=== PATIENT | female | born 1935 | race Caucasian/White ===

== ENCOUNTER → 2016-06-02 | Outpatient (CLI) | payer OTHER ==
[~2016-06-02] MED LIST: ACET325T96 PO; ADVIN25050 INH; ATOR10TA88 PO; BISA10SU7 PR; CALC-416 PO; CMD/25 PO; ESCI1TAB18 PO; FSM70 PO; HYDR1TAB2 PO; LEVO50TA6 PO; LPR25 PO; MOML PO; MULT-190 PO; OMEP20CA59 PO; SENN-12 PO; SIMV20TA2 PO; SODIENE PR; WARF2TAB PO
[2016-06-02 09:25] LABS: PROTHROMBIN TIME (PATIENT) 42.3 SECONDS (9.0-12.0)
[2016-06-02 09:42] LABS: INR 3.7 (0.9-1.1)
== END ==
LOC: C.LABUPUNI 08:50
PROVIDERS: ATTEND Family Medicine
DX: I48.2 Chronic atrial fibrillation (principal)

== ENCOUNTER → 2016-06-05 | Outpatient (CLI) | payer OTHER ==
[~2016-06-05] MED LIST changes: +ATOR10TA82 PO; -ATOR10TA88 PO
[2016-06-05 10:49] LABS: MEAN CORPUSCULAR HGB CONC 32.3 g/dl (32-36); MEAN PLATELET VOLUME 10.4 fL (7.4-10.4); PLATELET COUNT 249 K/uL (130-400)
[2016-06-05 10:57] LABS: ALT/SGPT 12 U/L (12-78); BLOOD UREA NITROGEN 17 mg/dl (7-18); BUN/CREATININE RATIO 17.1 (10-20); CALCIUM 8.3 mg/dl (8.5-10.1); CARBON DIOXIDE 26 mmol/L (21-32); CHLORIDE 108 mmol/L (98-107); CREATININE 0.98 mg/dl (0.60-1.20); GLUCOSE 74 mg/dl (70-99); POTASSIUM 3.9 mmol/L (3.5-5.1); SODIUM 143 mmol/L (136-145)
[2016-06-05 11:08] LABS: ALB/GLOB RATIO 0.7 (0.9-2); ALKALINE PHOSPHATASE 59 U/L (45-117); AST/SGOT 20 U/L (15-37)
[2016-06-05 11:19] LABS: BASO % 0.6 %; BASO ABS # 0.04 K/uL (0-0.2); COMPLETE YES; EOS % 5.2 %; HEMATOCRIT 31.3 % (37-47); IG% 0.2 %; LYMPH % 41.2 %; LYMPH ABS # 2.63 K/uL (1.2-3.4); MEAN CELL VOLUME 91.5 fL (80-100); MEAN CORPUSCULAR HEMOGLOBIN 29.5 pg (25-34); MONO % 11.3 %; NEUT % 41.5 %; RED BLOOD COUNT 3.42 M/uL (4.2-5.4); WHITE BLOOD COUNT 6.39 K/uL (4.8-10.8)
--- NOTE | 2016-06-09 10:04 | CODING QUERY MEDICAL NECESSITY ---
SUPPORTING DIAGNOSIS NEEDED A supporting diagnosis is required for the test/procedure performed on this patient in order for us to be reimbursed by the patient's insurance. Please provide a supporting diagnosis for the following test/procedure listed below next to the test name along with your signature. *If there is no additional diagnosis for this patient that would support the following test/procedure please document that below next to the test/procedure. Test(s)/Procedure(s) that require a supporting diagnosis: DOS 06/05 * Vitamin D DIAGNOSIS: Provider Signature: Date: Thank you Tanisha Timmons Health Information Management Once completed, please kindly fax back to [phone] For questions please call [phone]
== END ==
LOC: C.LABUPUNI 10:28
PROVIDERS: ATTEND Family Medicine
DX: M62.81 Muscle weakness (generalized) (principal); E03.9 Hypothyroidism, unspecified

== ENCOUNTER → 2016-06-06 | Outpatient (CLI) | payer OTHER ==
[~2016-06-06] MED LIST changes: -ATOR10TA82 PO; +ATOR10TA88 PO
[2016-06-06 08:35] LABS: ALT/SGPT 13 U/L (12-78); BLOOD UREA NITROGEN 15 mg/dl (7-18); BUN/CREATININE RATIO 16.6 (10-20); CALCIUM 8.1 mg/dl (8.5-10.1); CARBON DIOXIDE 27 mmol/L (21-32); CHLORIDE 107 mmol/L (98-107); CHOLESTEROL 114 mg/dl (0-200); CREATININE 0.92 mg/dl (0.60-1.20); GLUCOSE 70 mg/dl (70-99); POTASSIUM 3.8 mmol/L (3.5-5.1); SODIUM 143 mmol/L (136-145); TRIGLYCERIDES 181 mg/dl (0-150); VERY LOW DENSITY LIPOPROT CALC 36 mg/dl
[2016-06-06 08:40] LABS: PROTHROMBIN TIME (PATIENT) 62.7 SECONDS (9.0-12.0)
[2016-06-06 08:43] LABS: ALKALINE PHOSPHATASE 53 U/L (45-117); AST/SGOT 21 U/L (15-37); CHOLESTEROL/HDL RATIO 3.5; HDL CHOLESTEROL 33 mg/dl; LDL CHOLESTEROL CALCULATED 45 mg/dl
[2016-06-06 08:46] LABS: INR 5.5 (0.9-1.1)
--- NOTE | 2016-07-08 12:15 | CODING QUERY MEDICAL NECESSITY ---
SUPPORTING DIAGNOSIS NEEDED A supporting diagnosis is required for the test/procedure performed on this patient in order for us to be reimbursed by the patient's insurance. Please provide a supporting diagnosis for the following test/procedure listed below next to the test name along with your signature. *If there is no additional diagnosis for this patient that would support the following test/procedure please document that below next to the test/procedure. Test(s)/Procedure(s) that require a supporting diagnosis: * VITAMIN D DIAGNOSIS: * VITAMIN B-12 DIAGNOSIS: * DOS: 06/06/16 Provider Signature: Date: Thank you Jessica Church Health Information Management Once completed, please kindly fax back to [phone] For questions please call [phone]
== END ==
LOC: C.LABUPUNI 08:07
PROVIDERS: ATTEND Family Medicine
DX: E03.9 Hypothyroidism, unspecified (principal); F33.9 Major depressive disorder, recurrent, unspecified; E78.5 Hyperlipidemia, unspecified; F10.97 Alcohol use, unspecified with alcohol-induced persisting dementia; D64.89 Other specified anemias; M17.9 Osteoarthritis of knee, unspecified; M16.9 Osteoarthritis of hip, unspecified

== ENCOUNTER → 2016-06-07 | Outpatient (CLI) | payer OTHER ==
[2016-06-07 15:56] LABS: INR 6.3 (0.9-1.1)
== END ==
LOC: C.LABUPUNI 12:02
PROVIDERS: ATTEND Family Medicine
DX: I48.2 Chronic atrial fibrillation (principal)

== ENCOUNTER → 2016-06-09 | Outpatient (CLI) | payer OTHER ==
[2016-06-09 09:48] LABS: INR 2.8 (0.9-1.1); PROTHROMBIN TIME (PATIENT) 31.4 SECONDS (9.0-12.0)
== END ==
LOC: C.LABUPUNI 09:17
PROVIDERS: ATTEND Family Medicine
DX: Z79.01 Long term (current) use of anticoagulants (principal); Z51.81 Encounter for therapeutic drug level monitoring

== ENCOUNTER → 2016-06-13 | Outpatient (CLI) | payer OTHER ==
[2016-06-13 08:53] LABS: INR 2.6 (0.9-1.1); PROTHROMBIN TIME (PATIENT) 29.1 SECONDS (9.0-12.0)
== END ==
LOC: C.LABUPUNI 08:06
PROVIDERS: ATTEND Family Medicine
DX: I48.91 Unspecified atrial fibrillation (principal)

== ENCOUNTER → 2016-06-16 | Outpatient (CLI) | payer OTHER ==
[2016-06-16 10:25] LABS: PROTHROMBIN TIME (PATIENT) 34.1 SECONDS (9.0-12.0)
--- NOTE | 2016-06-17 12:14 | CODING QUERY NO DIAGNOSIS ---
TREATMENT RENDERED WITHOUT A DIAGNOSIS 35 To promote full compliance with coding requirements relating to patient care, physician participation is requested in all cases of state appellate clerk uncertainty. Please assist us with providing a diagnosis/symptom for the test(s) below: A diagnosis/symptom was not documented on your Order. A valid diagnosis/symptom is required to bill all insurances. Please remember that we are unable to code a diagnosis of rule out, probable, possible, questionable, or suspected. DOS 06/16/16 Tests that require a diagnosis: * PT/INR DIAGNOSIS: * ON YOUR ORDER YOU HAVE DX CODE I48.10, THIS IS AN INVALID CODE, CAN YOU PLEASE ADD CORRECT DX CODE Provider Signature: Date: Thank you Corina Merlos Health Information Management Once completed, please kindly fax back to [phone] For questions please call [phone]
== END ==
LOC: C.LABUPUNI 09:34
PROVIDERS: ATTEND Family Medicine
DX: I48.2 Chronic atrial fibrillation (principal)

== ENCOUNTER → 2016-06-23 | Outpatient (CLI) | payer OTHER ==
[2016-06-23 09:22] LABS: PROTHROMBIN TIME (PATIENT) 40.6 SECONDS (9.0-12.0)
[2016-06-23 09:24] LABS: INR 3.6 (0.9-1.1)
== END | disposition home or self-care (01) ==
LOC: C.LABUPUNI 08:32
PROVIDERS: ATTEND Family Medicine
DX: I48.2 Chronic atrial fibrillation (principal)

== ENCOUNTER → 2016-06-26 | Outpatient (CLI) | payer OTHER ==
[2016-06-26 08:37] LABS: INR 3.6 (0.9-1.1); PROTHROMBIN TIME (PATIENT) 40.1 SECONDS (9.0-12.0)
== END ==
LOC: C.LABUPUNI 08:05
PROVIDERS: ATTEND Family Medicine
DX: I48.2 Chronic atrial fibrillation (principal)

== ENCOUNTER → 2016-06-27 | Outpatient (CLI) | payer OTHER ==
[2016-06-27 09:18] LABS: INR 2.8 (0.9-1.1); PROTHROMBIN TIME (PATIENT) 31.3 SECONDS (9.0-12.0)
== END ==
LOC: C.LABUPUNI 08:56
PROVIDERS: ATTEND Family Medicine
DX: I48.91 Unspecified atrial fibrillation (principal)

== ENCOUNTER → 2016-06-30 | Outpatient (CLI) | payer OTHER ==
[2016-06-30 08:45] LABS: INR 2.2 (0.9-1.1); PROTHROMBIN TIME (PATIENT) 24.5 SECONDS (9.0-12.0)
--- NOTE | 2016-07-01 12:28 | CODING QUERY NO DIAGNOSIS ---
: 1935 TREATMENT RENDERED WITHOUT A DIAGNOSIS To promote full compliance with coding requirements relating to patient care, physician participation is requested in all cases of corporation pilot uncertainty. Please assist us with providing a diagnosis/symptom for the test(s) below: A diagnosis/symptom was not documented on your Order. A valid diagnosis/symptom is required to bill all insurances. Please remember that we are unable to code a diagnosis of rule out, probable, possible, questionable, or suspected. Tests that require a diagnosis: * PROTHROMBIN TIME PRO DOS: 06/30/16 DIAGNOSIS: Provider Signature: Date: Thank you Jessica Rivas [employer] Information Management Once completed, please kindly fax back to [phone] For questions please call [phone]
== END | disposition home or self-care (01) ==
LOC: C.LABUPUNI 08:10
PROVIDERS: ATTEND Family Medicine
DX: I48.2 Chronic atrial fibrillation (principal)

== ENCOUNTER → 2016-07-07 | Outpatient (CLI) | payer OTHER ==
[2016-07-07 09:06] LABS: INR 1.4 (0.9-1.1); PROTHROMBIN TIME (PATIENT) 14.8 SECONDS (9.0-12.0)
== END ==
LOC: C.LABUPUNI 08:37
PROVIDERS: ATTEND Family Medicine
DX: I48.2 Chronic atrial fibrillation (principal)

== ENCOUNTER → 2016-07-14 | Outpatient (CLI) | payer OTHER ==
[2016-07-14 08:27] LABS: INR 1.3 (0.9-1.1); PROTHROMBIN TIME (PATIENT) 14.4 SECONDS (9.0-12.0)
== END ==
LOC: C.LABUPUNI 07:59
PROVIDERS: ATTEND Family Medicine
DX: I48.2 Chronic atrial fibrillation (principal)

== ENCOUNTER → 2016-07-21 | Outpatient (CLI) | payer OTHER ==
[2016-07-21 10:01] LABS: INR 3.2 (0.9-1.1); PROTHROMBIN TIME (PATIENT) 36.2 SECONDS (9.0-12.0)
== END ==
LOC: C.LABUPUNI 09:40
PROVIDERS: ATTEND Family Medicine
DX: I48.2 Chronic atrial fibrillation (principal)

== ENCOUNTER → 2016-07-28 | Outpatient (CLI) | payer OTHER ==
[2016-07-28 09:45] LABS: INR 1.4 (0.9-1.1); PROTHROMBIN TIME (PATIENT) 15.4 SECONDS (9.0-12.0)
== END ==
LOC: C.LABUPUNI 08:55
PROVIDERS: ATTEND Family Medicine
DX: I48.91 Unspecified atrial fibrillation (principal)

== ENCOUNTER → 2016-08-04 | Outpatient (CLI) | payer OTHER ==
[2016-08-04 10:38] LABS: INR 1.9 (0.9-1.1); PROTHROMBIN TIME (PATIENT) 21.3 SECONDS (9.0-12.0)
== END ==
LOC: C.LABUPUNI 10:07
PROVIDERS: ATTEND Family Medicine
DX: I48.2 Chronic atrial fibrillation (principal)

== ENCOUNTER → 2016-08-08 | Outpatient (CLI) | payer OTHER ==
[2016-08-08 10:02] LABS: INR 2.7 (0.9-1.1); PROTHROMBIN TIME (PATIENT) 30.6 SECONDS (9.0-12.0)
== END ==
LOC: C.LABUPUNI 09:23
PROVIDERS: ATTEND Family Medicine
DX: I48.2 Chronic atrial fibrillation (principal)

== ENCOUNTER → 2016-08-13 | Outpatient (CLI) | payer OTHER ==
[~2016-08-13] MED LIST changes: +ATOR10TA82 PO; -ATOR10TA88 PO
[2016-08-13 10:20] LABS: INR 2.1 (0.9-1.1); PROTHROMBIN TIME (PATIENT) 22.9 SECONDS (9.0-12.0)
--- NOTE | 2016-08-14 11:58 | CODING QUERY NO DIAGNOSIS ---
: 1935 TREATMENT RENDERED WITHOUT A DIAGNOSIS To promote full compliance with coding requirements relating to patient care, physician participation is requested in all cases of compounder helper uncertainty. Please assist us with providing a diagnosis/symptom for the test(s) below: A diagnosis/symptom was not documented on your Order. A valid diagnosis/symptom is required to bill all insurances. Please remember that we are unable to code a diagnosis of rule out, probable, possible, questionable, or suspected. Tests that require a diagnosis: DOS: 08/13/16 * Prothrombin Time Profile DIAGNOSIS: Provider Signature: Date: Thank you Shannan Lund Health Information Management Once completed, please kindly fax back to [phone] For questions please call [phone]
== END ==
LOC: C.LABUPUNI 09:48
PROVIDERS: ATTEND Family Medicine
DX: Z01.89 Encounter for other specified special examinations (principal)

== ENCOUNTER → 2016-08-20 | Outpatient (CLI) | payer OTHER ==
[~2016-08-20] MED LIST changes: -ATOR10TA82 PO; +ATOR10TA88 PO
[2016-08-20 09:31] LABS: INR 2.5 (0.9-1.1); PROTHROMBIN TIME (PATIENT) 27.9 SECONDS (9.0-12.0)
== END ==
LOC: C.LABUPUNI 09:05
PROVIDERS: ATTEND Family Medicine
DX: I48.91 Unspecified atrial fibrillation (principal)

== ENCOUNTER → 2016-08-29 | Outpatient (CLI) | payer OTHER ==
[~2016-08-29] MED LIST changes: +ATOR10TA82 PO; -ATOR10TA88 PO
[2016-08-29 09:41] LABS: MEAN CELL VOLUME 90.2 fL (80-100); MEAN CORPUSCULAR HEMOGLOBIN 28.9 pg (25-34); MEAN PLATELET VOLUME 10.3 fL (7.4-10.4); PLATELET COUNT 278 K/uL (130-400); RED BLOOD COUNT 3.88 M/uL (4.2-5.4); WHITE BLOOD COUNT 7.15 K/uL (4.8-10.8)
== END ==
LOC: C.LABUPUNI 09:12
PROVIDERS: ATTEND Family Medicine
DX: I48.2 Chronic atrial fibrillation (principal)

== ENCOUNTER → 2016-09-03 | Outpatient (CLI) | payer OTHER ==
[2016-09-03 09:45] LABS: INR 2.6 (0.9-1.1); PROTHROMBIN TIME (PATIENT) 28.7 SECONDS (9.0-12.0)
== END ==
LOC: C.LABUPUNI 09:25
PROVIDERS: ATTEND Family Medicine
DX: I48.91 Unspecified atrial fibrillation (principal)

== ENCOUNTER → 2016-10-08 | Outpatient (CLI) | payer OTHER ==
[2016-10-08 10:19] LABS: INR 2.6 (0.9-1.1); PROTHROMBIN TIME (PATIENT) 29.2 SECONDS (9.0-12.0)
== END ==
LOC: C.LABUPUNI 09:47
PROVIDERS: ATTEND Family Medicine
DX: I48.91 Unspecified atrial fibrillation (principal)

== ENCOUNTER → 2016-10-20 | Outpatient (CLI) | payer OTHER ==
[2016-10-20 11:08] LABS: INR 1.9 (0.9-1.1); PROTHROMBIN TIME (PATIENT) 20.5 SECONDS (9.0-12.0)
== END ==
LOC: C.LABUPUNI 09:43
PROVIDERS: ATTEND Family Medicine
DX: I48.91 Unspecified atrial fibrillation (principal)

== ENCOUNTER → 2016-10-22 | Outpatient (CLI) | payer OTHER ==
[2016-10-22 09:44] LABS: BASO % 0.3 %; BASO ABS # 0.02 K/uL (0-0.2); COMPLETE YES; EOS % 3.6 %; HEMATOCRIT 32.8 % (37-47); IG% 0.1 %; LYMPH % 40.7 %; LYMPH ABS # 2.95 K/uL (1.2-3.4); MEAN CELL VOLUME 92.7 fL (80-100); MEAN CORPUSCULAR HEMOGLOBIN 29.4 pg (25-34); MEAN CORPUSCULAR HGB CONC 31.7 g/dl (32-36); MEAN PLATELET VOLUME 10.5 fL (7.4-10.4); MONO % 10.2 %; NEUT % 45.1 %; PLATELET COUNT 294 K/uL (130-400); RED BLOOD COUNT 3.54 M/uL (4.2-5.4); WHITE BLOOD COUNT 7.24 K/uL (4.8-10.8)
[2016-10-22 10:03] LABS: URINE APPEARANCE TURBID (CLEAR); URINE BILIRUBIN NEG (NEG); URINE COLOR DK YELLOW; URINE EPITHELIAL CELL AUTO >30 /lpf (0-5); URINE NITRITE POS (NEG); URINE PH 5.5 (4.5-7.5); URINE SPECIFIC GRAVITY 1.024 (1.000-1.030); UROBILINOGEN NEG (NEG)
[2016-10-22 10:11] LABS: BLOOD UREA NITROGEN 19 mg/dl (7-18); BUN/CREATININE RATIO 20.2 (10-20); CALCIUM 8.8 mg/dl (8.5-10.1); CARBON DIOXIDE 30 mmol/L (21-32); CHLORIDE 108 mmol/L (98-107); CREATININE 0.96 mg/dl (0.60-1.20); GLUCOSE 86 mg/dl (70-99); POTASSIUM 4.1 mmol/L (3.5-5.1); SODIUM 142 mmol/L (136-145)
[2016-10-22 10:20] LABS: MANUAL MICROSCOPIC REQUIRED? NO; REVIEW REQ? YES
[2016-10-22 10:22] LABS: THYROID STIMULATING HORMONE 0.431 uIu/ml (0.300-4.500)
--- NOTE | 2016-11-03 11:36 | CODING QUERY MEDICAL NECESSITY ---
SUPPORTING DIAGNOSIS NEEDED Dr. Campa, A supporting diagnosis is required for the test/procedure performed on this patient in order for us to be reimbursed by the patient's insurance. Please provide a supporting diagnosis for the following test/procedure listed below next to the test name along with your signature. *If there is no additional diagnosis for this patient that would support the following test/procedure please document that below next to the test/procedure. Test(s)/Procedure(s) that require a supporting diagnosis: * ([id number]) VITAMIN D ASSAY DIAGNOSIS: DATE OF SERVICE: 10/22/16 Provider Signature: Date: Thank you Kyle Beltran [facility] Information Management Once completed, please kindly fax back to [phone] For questions please call [phone]
== END ==
LOC: C.LABUPUNI 08:56
PROVIDERS: ATTEND Family Medicine
DX: E56.8 Deficiency of other vitamins (principal); J44.9 Chronic obstructive pulmonary disease, unspecified; E03.9 Hypothyroidism, unspecified; M62.81 Muscle weakness (generalized); N39.0 Urinary tract infection, site not specified; E55.9 Vitamin D deficiency, unspecified

== ENCOUNTER → 2016-10-28 | Outpatient (CLI) | payer OTHER ==
[2016-10-28 10:58] LABS: INR 2.3 (0.9-1.1); PROTHROMBIN TIME (PATIENT) 25.7 SECONDS (9.0-12.0)
== END | disposition home or self-care (01) ==
LOC: C.LABUPUNI 10:21
PROVIDERS: ATTEND Family Medicine
DX: D64.89 Other specified anemias (principal)

== ENCOUNTER → 2016-10-30 | Outpatient (CLI) | payer OTHER ==
[2016-10-30 10:57] LABS: INR 1.9 (0.9-1.1); PROTHROMBIN TIME (PATIENT) 21.4 SECONDS (9.0-12.0)
== END ==
LOC: C.LABUPUNI 09:40
PROVIDERS: ATTEND Nurse Practitioner Family
DX: I48.2 Chronic atrial fibrillation (principal)

== ENCOUNTER → 2016-11-06 | Outpatient (CLI) | payer OTHER ==
[2016-11-06 09:52] LABS: INR 1.6 (0.9-1.1); PROTHROMBIN TIME (PATIENT) 17.6 SECONDS (9.0-12.0)
== END ==
LOC: C.LABUPUNI 09:16
PROVIDERS: ATTEND Family Medicine
DX: I48.0 Paroxysmal atrial fibrillation (principal)

== ENCOUNTER → 2016-11-10 | Outpatient (CLI) | payer OTHER ==
[2016-11-10 11:18] LABS: PROTHROMBIN TIME (PATIENT) 21.5 SECONDS (9.0-12.0)
== END ==
LOC: C.LABUPUNI 09:17
PROVIDERS: ATTEND Family Medicine
DX: I48.91 Unspecified atrial fibrillation (principal)

== ENCOUNTER → 2016-11-17 | Outpatient (CLI) | payer OTHER ==
[~2016-11-17] MED LIST changes: -ATOR10TA82 PO; +ATOR10TA88 PO
[2016-11-17 10:14] LABS: INR 2.9 (0.9-1.1); PROTHROMBIN TIME (PATIENT) 32.5 SECONDS (9.0-12.0)
== END | disposition home or self-care (01) ==
LOC: C.LABUPUNI 09:27
PROVIDERS: ATTEND Family Medicine
DX: I48.2 Chronic atrial fibrillation (principal)

== ENCOUNTER → 2016-11-20 | Outpatient (CLI) | payer OTHER ==
[~2016-11-20] MED LIST changes: +ATOR10TA82 PO; -ATOR10TA88 PO
[2016-11-20 10:54] LABS: PROTHROMBIN TIME (PATIENT) 21.5 SECONDS (9.0-12.0)
== END ==
LOC: C.LABUPUNI 09:27
PROVIDERS: ATTEND Family Medicine
DX: I48.2 Chronic atrial fibrillation (principal)

== ENCOUNTER → 2016-11-27 | Outpatient (CLI) | payer OTHER ==
[~2016-11-27] MED LIST changes: -ATOR10TA82 PO; +ATOR10TA88 PO
[2016-11-27 10:49] LABS: INR 2.6 (0.9-1.1); PROTHROMBIN TIME (PATIENT) 28.5 SECONDS (9.0-12.0)
== END ==
LOC: C.LABUPUNI 09:16
PROVIDERS: ATTEND Family Medicine
DX: I48.91 Unspecified atrial fibrillation (principal)

== ENCOUNTER → 2016-12-05 | Outpatient (CLI) | payer OTHER ==
[2016-12-05 09:19] LABS: HEMATOCRIT 34.5 % (37-47); MEAN CORPUSCULAR HEMOGLOBIN 29.1 pg (25-34); MEAN CORPUSCULAR HGB CONC 31.3 g/dl (32-36); MEAN PLATELET VOLUME 10.8 fL (7.4-10.4); PLATELET COUNT 236 K/uL (130-400); RED BLOOD COUNT 3.71 M/uL (4.2-5.4); WHITE BLOOD COUNT 5.82 K/uL (4.8-10.8)
[2016-12-05 09:31] LABS: ALT/SGPT 16 U/L (12-78); AST/SGOT 19 U/L (15-37); BLOOD UREA NITROGEN 15 mg/dl (7-18); CALCIUM 9.1 mg/dl (8.5-10.1); CARBON DIOXIDE 28 mmol/L (21-32); CHLORIDE 107 mmol/L (98-107); CHOLESTEROL 102 mg/dl (0-200); GLUCOSE 74 mg/dl (70-99); POTASSIUM 4.1 mmol/L (3.5-5.1); SODIUM 142 mmol/L (136-145); TRIGLYCERIDES 135 mg/dl (0-150); VERY LOW DENSITY LIPOPROT CALC 27 mg/dl
[2016-12-05 09:39] LABS: ALB/GLOB RATIO 0.6 (0.9-2); ALKALINE PHOSPHATASE 50 U/L (45-117); CHOLESTEROL/HDL RATIO 3.2; HDL CHOLESTEROL 32 mg/dl; LDL CHOLESTEROL CALCULATED 43 mg/dl; THYROID STIMULATING HORMONE 0.288 uIu/ml (0.300-4.500)
== END ==
LOC: C.LABUPUNI 09:09
PROVIDERS: ATTEND Family Medicine
DX: Z01.89 Encounter for other specified special examinations (principal)

== ENCOUNTER → 2016-12-11 | Outpatient (CLI) | payer OTHER ==
[2016-12-11 09:52] LABS: INR 2.2 (0.9-1.1); PROTHROMBIN TIME (PATIENT) 24.6 SECONDS (9.0-12.0)
== END ==
LOC: C.LABUPUNI 09:00
PROVIDERS: ATTEND Nurse Practitioner Family
DX: I48.91 Unspecified atrial fibrillation (principal)

== ENCOUNTER → 2016-12-25 | Outpatient (CLI) | payer OTHER ==
[2016-12-25 09:43] LABS: INR 2.9 (0.9-1.1); PROTHROMBIN TIME (PATIENT) 32.8 SECONDS (9.0-12.0)
== END | disposition home or self-care (01) ==
LOC: C.LABUPUNI 09:03
PROVIDERS: ATTEND Family Medicine
DX: Z51.81 Encounter for therapeutic drug level monitoring (principal); Z79.01 Long term (current) use of anticoagulants; I48.91 Unspecified atrial fibrillation

== ENCOUNTER → 2017-01-08 | Outpatient (CLI) | payer OTHER ==
[2017-01-08 10:11] LABS: INR 2.2 (0.9-1.1); PROTHROMBIN TIME (PATIENT) 24.8 SECONDS (9.0-12.0)
== END ==
LOC: C.LABUPUNI 08:49
PROVIDERS: ATTEND Nurse Practitioner Family
DX: I48.91 Unspecified atrial fibrillation (principal)

== ENCOUNTER → 2017-01-16 | Outpatient (CLI) | payer OTHER | LOC: C.LABUPUNI 09:06 | PROVIDERS: ATTEND Nurse Practitioner Family | DX: E03.9 Hypothyroidism, unspecified (principal) ==

== ENCOUNTER → 2017-02-16 | Outpatient (CLI) | payer OTHER | LOC: C.LABUPNIT 14:27 | PROVIDERS: ATTEND Nurse Practitioner Family | DX: R41.82 Altered mental status, unspecified (principal) ==

== ENCOUNTER → 2017-03-03 | Outpatient (CLI) | payer OTHER ==
[2017-03-03 15:28] LABS: URINE APPEARANCE TURBID (CLEAR); URINE BILIRUBIN NEG (NEG); URINE COLOR DK YELLOW; URINE EPITHELIAL CELL AUTO >30 /lpf (0-5); URINE NITRITE NEG (NEG); URINE PH 6.5 (4.5-7.5); URINE SPECIFIC GRAVITY 1.019 (1.000-1.030); UROBILINOGEN NEG (NEG)
[2017-03-03 15:39] LABS: MANUAL MICROSCOPIC REQUIRED? NO; REVIEW REQ? YES
[2017-03-03 16:41] LABS: URINE PATH CASTS 0-3 GRANULAR CASTS /lpf (0)
== END | disposition home or self-care (01) ==
LOC: C.LABUPUNI 14:52
PROVIDERS: ATTEND Nurse Practitioner Family
DX: N39.0 Urinary tract infection, site not specified (principal)

== ENCOUNTER → 2017-03-04 | Outpatient (CLI) | payer OTHER ==
[2017-03-04 08:20] LABS: BASO % 0.2 %; BASO ABS # 0.02 K/uL (0-0.2); COMPLETE YES; EOS % 3.1 %; HEMATOCRIT 33.8 % (37-47); IG% 0.2 %; LYMPH % 31.5 %; LYMPH ABS # 2.62 K/uL (1.2-3.4); MEAN CELL VOLUME 93.4 fL (80-100); MEAN CORPUSCULAR HEMOGLOBIN 29.8 pg (25-34); MEAN PLATELET VOLUME 10.6 fL (7.4-10.4); MONO % 10.8 %; NEUT % 54.2 %; PLATELET COUNT 197 K/uL (130-400); RED BLOOD COUNT 3.62 M/uL (4.2-5.4); WHITE BLOOD COUNT 8.33 K/uL (4.8-10.8)
[2017-03-04 08:29] LABS: BLOOD UREA NITROGEN 14 mg/dl (7-18); BUN/CREATININE RATIO 16.4 (10-20); CALCIUM 8.8 mg/dl (8.5-10.1); CARBON DIOXIDE 28 mmol/L (21-32); CHLORIDE 105 mmol/L (98-107); CREATININE 0.86 mg/dl (0.60-1.20); GLUCOSE 79 mg/dl (70-99); POTASSIUM 3.6 mmol/L (3.5-5.1); SODIUM 139 mmol/L (136-145)
== END ==
LOC: C.LABUPUNI 07:59
PROVIDERS: ATTEND Nurse Practitioner Family
DX: I10 Essential (primary) hypertension (principal); M62.81 Muscle weakness (generalized)

== ENCOUNTER → 2017-06-08 | Outpatient (CLI) | payer OTHER ==
[~2017-06-08] MED LIST changes: +ATOR10TA82 PO; -ATOR10TA88 PO
[2017-06-08 09:30] LABS: MEAN CELL VOLUME 94.7 fL (80-100); MEAN CORPUSCULAR HEMOGLOBIN 30.6 pg (25-34); MEAN CORPUSCULAR HGB CONC 32.4 g/dl (32-36); MEAN PLATELET VOLUME 10.9 fL (7.4-10.4); PLATELET COUNT 248 K/uL (130-400); RED CELL DISTRIBUTION WIDTH CV 15.8 % (11.5-14.5); RED CELL DISTRIBUTION WIDTH SD 54.6 fL (36.4-46.3); WHITE BLOOD COUNT 6.24 K/uL (4.8-10.8)
[2017-06-08 09:39] LABS: ALBUMIN 2.7 gm/dl (3.4-5.0); ALT/SGPT 16 U/L (12-78); AST/SGOT 19 U/L (15-37); BLOOD UREA NITROGEN 11 mg/dl (7-18); CALCIUM 8.8 mg/dl (8.5-10.1); CARBON DIOXIDE 29 mmol/L (21-32); CHOLESTEROL 93 mg/dl (0-200); CREATININE 0.91 mg/dl (0.60-1.20); GLUCOSE 75 mg/dl (70-99); POTASSIUM 4.1 mmol/L (3.5-5.1); SODIUM 140 mmol/L (136-145)
[2017-06-08 09:46] LABS: ALKALINE PHOSPHATASE 49 U/L (45-117); LDL CHOLESTEROL CALCULATED 36 mg/dl; TOTAL PROTEIN 6.7 gm/dl (6.4-8.2)
== END ==
LOC: C.LABUPUNI 09:09
PROVIDERS: ATTEND Nurse Practitioner Family
DX: I10 Essential (primary) hypertension (principal); D64.89 Other specified anemias; E03.9 Hypothyroidism, unspecified; M62.81 Muscle weakness (generalized); F10.97 Alcohol use, unspecified with alcohol-induced persisting dementia; E78.5 Hyperlipidemia, unspecified

== ENCOUNTER → 2017-08-13 | Outpatient (CLI) | payer OTHER ==
[~2017-08-13] MED LIST changes: +ACET-1693 PO; -ACET325T96 PO
[2017-08-13 08:21] LABS: HEMOGLOBIN 11.4 g/dL (12.0-16.0); MEAN CELL VOLUME 93.5 fL (80-100); MEAN CORPUSCULAR HEMOGLOBIN 29.6 pg (25-34); MEAN CORPUSCULAR HGB CONC 31.7 g/dl (32-36); MEAN PLATELET VOLUME 10.8 fL (7.4-10.4); PLATELET COUNT 200 K/uL (130-400); RED CELL DISTRIBUTION WIDTH CV 15.3 % (11.5-14.5); WHITE BLOOD COUNT 6.66 K/uL (4.8-10.8)
[2017-08-13 08:42] LABS: ALBUMIN 2.8 gm/dl (3.4-5.0); ALT/SGPT 14 U/L (12-78); AST/SGOT 18 U/L (15-37); BLOOD UREA NITROGEN 20 mg/dl (7-18); CALCIUM 9.1 mg/dl (8.5-10.1); CARBON DIOXIDE 27 mmol/L (21-32); CREATININE 0.87 mg/dl (0.60-1.20); GLUCOSE 81 mg/dl (70-99); SODIUM 140 mmol/L (136-145)
[2017-08-13 08:53] LABS: ALKALINE PHOSPHATASE 56 U/L (45-117); TOTAL PROTEIN 6.8 gm/dl (6.4-8.2)
== END | disposition home or self-care (01) ==
LOC: C.LABUPUNI 08:02
PROVIDERS: ATTEND Nurse Practitioner Family
DX: I48.2 Chronic atrial fibrillation (principal); I10 Essential (primary) hypertension; E03.9 Hypothyroidism, unspecified; D64.89 Other specified anemias

== ENCOUNTER → 2017-08-24 | Outpatient (CLI) | payer OTHER | LOC: C.LABUPUNI 08:22 | PROVIDERS: ATTEND Nurse Practitioner Family | DX: F33.9 Major depressive disorder, recurrent, unspecified (principal) ==

== ENCOUNTER → 2017-08-27 | Outpatient (CLI) | payer OTHER | LOC: C.LABUPUNI 09:29 | PROVIDERS: ATTEND Nurse Practitioner Family | DX: E03.9 Hypothyroidism, unspecified (principal) ==

== ENCOUNTER → 2017-09-25 | Outpatient (CLI) | payer OTHER | LOC: C.LABUPUNI 09:05 | PROVIDERS: ATTEND Nurse Practitioner Family | DX: E03.9 Hypothyroidism, unspecified (principal) ==

== ENCOUNTER → 2017-10-12 | Outpatient (CLI) | payer OTHER | LOC: C.LABUPUNI 09:26 | PROVIDERS: ATTEND Nurse Practitioner Family | DX: E03.9 Hypothyroidism, unspecified (principal) ==

== ENCOUNTER 2018-08-02 09:44 | Inpatient (IN) ==
[2018-08-02] MEDS ORDERED: ALBUT/IPRATROP 3MG/0.5MG NEB 3 ML VIAL NEB STA (10:24)
[2018-08-02 10:35] LABS: Basophils # (auto) 0.01 K/uL (0-0.2); Basophils % (auto) 0.2 %; Hematocrit (blood only) 32.6 % (37-47); Hemoglobin 10.4 g/dL (12.0-16.0); Immature Granulocytes # (auto) 0.02 K/uL (0.00-0.02); Immature Granulocytes % (auto) 0.3 %; Lymphocytes # (auto) 0.71 K/uL (1.2-3.4); Lymphocytes % (auto) 11.7 %; Mean Corpuscular Hgb Conc 31.9 g/dL (32-36); Mean Corpuscular Volume 92.1 fL (80-100); Mean Platelet Volume 11.1 fL (7.4-10.4); Monocytes # (auto) 0.26 K/uL (0.11-0.59); Monocytes % (auto) 4.3 %; Neutrophils # (auto) 5.09 K/uL (1.4-6.5); Neutrophils % (auto) 83.5 %; Platelet Count 287 K/uL (130-400); RDW Coefficient of Variation 17.1 % (11.5-14.5); RDW Standard Deviation 57.4 fL (36.4-46.3); Red Blood Count 3.54 M/uL (4.2-5.4); White Blood Count 6.09 K/uL (4.8-10.8)
[2018-08-02 10:42] LABS: Albumin Level 3.1 gm/dl (3.4-5.0); BUN Creatinine Ratio 25.9 (10-20); Calcium 8.8 mg/dl (8.5-10.1); Est GFR (African American) 61.1; Est GFR (Non-African American) 52.7
--- NOTE | 2018-08-02 10:51 | XRay Report ---
SINGLE VIEW CHEST CLINICAL HISTORY: Cough. Change in mental status. FINDINGS: An AP, portable, upright chest radiograph is compared to study dated 12/10/2011. The examina tion is degraded by portable technique and patient rotation. The heart is enlarged and there is athe rosclerotic calcification of the thoracic aorta. There is pulmonary vascular congestion. Small pleura l effusions are identified with bibasilar consolidation. No pneumothorax is seen. The skeletal struct ures are osteopenic. The bony thorax is grossly intact. Degenerative change is noted in the shoulders and thoracic spine. IMPRESSION: 1. Cardiomegaly with evidence of congestive failure. 2. Small pleural effusions with bibasilar consolidation. This likely represents atelectasis. Clinical correlation will be required. Electronically signed by: Andrews Mariee M.D. 08/02/2018 10:50 AM
[2018-08-02 10:54] LABS: Albumin Globulin Ratio 0.7 (0.9-2); Bilirubin,Total 0.7 mg/dl (0.2-1); Globulin 4.7 gm/dl (2.5-4.0); Total Protein 7.8 gm/dl (6.4-8.2); Troponin I 0.056 ng/ml (0-0.045)
[2018-08-02] MEDS ORDERED: PIPERACILLIN/TAZOBACTAM 4.5 GM/120 ML BAG IV ONE (11:24)
[2018-08-02] MEDS ORDERED: PIPERACILL/TAZOBAC CONSULT ACTIVE PRN ×2 (11:24→18:05)
[2018-08-02] MEDS ORDERED: LEVOFLOXACIN/D5W 750 MG/150 ML BAG IV SCH (11:30)
--- NOTE | 2018-08-02 11:37 | CT Scan Report ---
CT SCAN OF THE BRAIN WITHOUT IV CONTRAST CLINICAL HISTORY: Change in mental status. COMPARISON STUDY: CT of the brain dated 01/16/2014. TECHNIQUE: Unenhanced axial CT scan of the brain is performed from the vertex to the skull base. A do se lowering technique was utilized adhering to the principles of ALARA. CT DOSE: 537.48 mGy.cm FINDINGS: Brain parenchyma: There are age-related involutional changes noting moderate subcortical and periven tricular microangiopathic change. There is no hemorrhage, mass effect, or evidence of acute territori al ischemia by CT criteria. Park-white matter differentiation is preserved. No extra-axial fluid cassi ection is seen. Ventricles, sulci, cisterns: Prominent secondary to involutional change. Intracranial vasculature: There is atherosclerotic calcification of the cavernous carotid and vertebr al arteries. Calvarium: Unremarkable. Sinuses and mastoids: The visualized paranasal sinuses are clear. Findings suggest previous left mast oid surgery. The mastoid air cells are well pneumatized. Orbits: The bony orbits are grossly intact. IMPRESSION: There is no hemorrhage, mass effect, or evidence of acute territorial ischemia by CT todd dempsey. Electronically signed by: Andrews Mariee M.D. 08/02/2018 11:36 AM
[2018-08-02] MEDS ORDERED: FUROSEMIDE 40 MG/4 ML VIAL IV STA (12:37)
--- NOTE | 2018-08-02 13:43 | Emergency Department Note ---
Entered by Joana Rose acting as a scribe for History of Present Illness General Chief complaint: Illness Stated complaint: pnuemonia / [place] Time Seen by Provider: 08/02/18 09:59 Source: patient Limitations: altered mental status History of Present Illness Provider complaint: referral Onset (ago): hour(s) (today) Location: chest Maximum Pain Intensity: 5 Quality: + other (pneumonia) The patient is an 83 year old female who presents to the Emergency Room with a referral from [facility] today. The patient states that she was referred as she has pneumonia. Limited HPI secondary to altered mental status. Review of EMR shows that the patient has a history of colon cancer, hypertension, COPD, hypothyroid, osteoporosis, urinary incontinence, and former tobacco use. Home Medications Home Medications Medication Instructions Recorded Confirmed Type alendronate 70 mg PO WK 08/02/18 08/02/18 History apixaban [Eliquis] 5 mg PO DAILY 08/02/18 08/02/18 History atorvastatin 10 mg PO DAILY 08/02/18 08/02/18 History escitalopram oxalate 10 mg PO DAILY 08/02/18 08/02/18 History fluticasone-salmeterol [Advair 2 puff INHALATION DAILY PRN 08/02/18 08/02/18 History Diskus] hydrocodone-acetaminophen 1 tab PO Q6 PRN 08/02/18 08/02/18 History levothyroxine 50 mcg PO DAILY 08/02/18 08/02/18 History methylprednisolone sodium succ 125 mg IM DIRECTED 08/02/18 08/02/18 History metoprolol tartrate 25 mg PO DAILY 08/02/18 08/02/18 History omeprazole 20 mg PO DAILY 08/02/18 08/02/18 History prednisone 10 mg PO DAILY 08/02/18 08/02/18 History Allergies Allergy/AdvReac Type Severity Reaction Status Date / Time No Known Allergies Allergy Unverified 11/25/11 09:44 Past Med/Surg History Medical History Colon cancer (Acute) COPD (chronic obstructive pulmonary disease) (Chronic) HTN (hypertension) (Chronic) Social History Preferred Language: Sammarinese Communication Ability: Effective Beliefs That Will Affect Care: None Current Living Situation: Detention Other Information That Helps Us Care for You: No Feels Safe at Home: Yes Safety Concerns: Feels Safe At This Time Smoking Status: Unknown if ever smoked Hx Alcohol Use: No Hx Substance Use: No Review of Systems Limited ROS secondary to AMS. Physical Exam Vital Signs Vital Signs - 24 hr 08/02/18 09:52 08/02/18 09:54 08/02/18 09:56 Temperature Temperature Source Sepsis Recent Fever Within 48 Hours No Sepsis New/Unexplained Change in Mental Status No Sepsis Action Taken by Nursing No Action Required Pulse Rate 105 H 103 H 110 H Pulse Rate [Apical] Pulse Rate from SpO2 Sensor 104 H 106 H Pulse Rhythm [Apical] Respiratory Rate 24 Respiratory Effort / Characteristics Respiratory Depth Respiratory Pattern Blood Pressure 144/98 H 144/98 H Blood Pressure [Left Arm] Blood Pressure Mean 113 113 Blood Pressure Mean [Left Arm] Blood Pressure Position [Left Arm] Pulse Oximetry 93 94 93 Oxygen Delivery Method Room Air 08/02/18 10:00 08/02/18 10:30 08/02/18 10:37 Temperature 37.2 C Temperature Source Rectal Sepsis Recent Fever Within 48 Hours Sepsis New/Unexplained Change in Mental Status Sepsis Action Taken by Nursing Pulse Rate 90 84 108 H Pulse Rate [Apical] Pulse Rate from SpO2 Sensor 98 H 117 H 110 H Pulse Rhythm [Apical] Respiratory Rate 27 H 27 H Respiratory Effort / Characteristics Respiratory Depth Respiratory Pattern Blood Pressure 106/99 Blood Pressure [Left Arm] Blood Pressure Mean 101 Blood Pressure Mean [Left Arm] Blood Pressure Position [Left Arm] Pulse Oximetry 93 93 92 Oxygen Delivery Method 08/02/18 10:38 08/02/18 11:00 08/02/18 11:34 Temperature Temperature Source Sepsis Recent Fever Within 48 Hours Sepsis New/Unexplained Change in Mental Status Sepsis Action Taken by Nursing Pulse Rate 96 H 100 H Pulse Rate [Apical] 97 H Pulse Rate from SpO2 Sensor Pulse Rhythm [Apical] Irregular Respiratory Rate 36 H 24 31 H Respiratory Effort / Characteristics Respiratory Depth Respiratory Pattern Blood Pressure Blood Pressure [Left Arm] 106/99 Blood Pressure Mean Blood Pressure Mean [Left Arm] 101 Blood Pressure Position [Left Arm] Sitting Pulse Oximetry 93 Oxygen Delivery Method Room Air 08/02/18 11:38 08/02/18 11:39 08/02/18 12:00 Temperature Temperature Source Sepsis Recent Fever Within 48 Hours Sepsis New/Unexplained Change in Mental Status Sepsis Action Taken by Nursing Pulse Rate 117 H 103 H 89 Pulse Rate [Apical] Pulse Rate from SpO2 Sensor 120 H 104 H 87 Pulse Rhythm [Apical] Respiratory Rate 38 H 22 24 Respiratory Effort / Characteristics Respiratory Depth Respiratory Pattern Blood Pressure 137/80 136/69 Blood Pressure [Left Arm] Blood Pressure Mean 99 91 Blood Pressure Mean [Left Arm] Blood Pressure Position [Left Arm] Pulse Oximetry 92 95 94 Oxygen Delivery Method 08/02/18 12:11 08/02/18 12:30 08/02/18 13:00 Temperature Temperature Source Sepsis Recent Fever Within 48 Hours Sepsis New/Unexplained Change in Mental Status Sepsis Action Taken by Nursing Pulse Rate 110 H 91 H Pulse Rate [Apical] Pulse Rate from SpO2 Sensor 120 H Pulse Rhythm [Apical] Respiratory Rate 24 21 Respiratory Effort / Characteristics Spontaneous Short of Breath Respiratory Depth Shallow Respiratory Pattern Tachypnea Blood Pressure 130/84 Blood Pressure [Left Arm] Blood Pressure Mean 99 Blood Pressure Mean [Left Arm] Blood Pressure Position [Left Arm] Pulse Oximetry 92 Oxygen Delivery Method Room Air CONSTITUTIONAL/VITAL SIGNS: Reviewed / noted above. GENERAL: Non-toxic in appearance. INTEGUMENTARY: Warm, dry, and [place]. HEAD: Normocephalic. EYES: without scleral icterus or trauma. ENT/OROPHARYNX: clear and moist. LYMPHADENOPATHY/NECK: Is supple without lymphadenopathy or meningismus. RESPIRATORY: Diminished breath sounds bilaterally. Rhonchi bilaterally. CARDIOVASCULAR: Regular rate and rhythm. GI/ABDOMEN: Soft and nontender. No organomegaly or pulsatile mass. No rebound or guarding. Normal bowel sounds. EXTREMITIES: Warm and well perfused. BACK: No CVA tenderness. NEUROLOGICAL: Intact without focal deficits. PSYCHIATRIC: normal affect. MUSCULOSKELETAL: Normally developed with good muscle tone. Course 1002: The patient was evaluated by Dr. Fuchs-Resident. 1142: I evaluated the patient in room C5. She verbalized agreement and understanding of the treatment plan. 1154: I discussed the patient's case with Prudence Malin who will evaluate the patient for further management. Consultations Consultation #1: Prudence Malin Time: 11:54 Administered Medications Levofloxacin/Dextrose (Levaquin/D5w) 750 mg in 150 mls @ 100 mls/hr IV Q24H GOGO Stop: 08/09/18 11:29 Last Infusion: 08/02/18 13:39 Dose: 0 mls/hr Documented by: [id number] Admin: 08/02/18 12:09 Dose: 100 mls/hr Documented by: [id number] Discontinued Medications Albuterol (Duoneb) 3 ml NEB NOW STA Stop: 08/02/18 10:25 Last Admin: 08/02/18 10:43 Dose: 3 ml Documented by: [id number] Furosemide (Lasix) 40 mg IV NOW STA Stop: 08/02/18 12:38 Last Admin: 08/02/18 12:43 Dose: 40 mg Documented by: [id number] Piperacillin Sod/Tazobactam Sod (Zosyn) 4.5 gm in 120 mls @ 240 mls/hr IV NOW ONE Stop: 08/02/18 11:53 Last Infusion: 08/02/18 12:08 Dose: 0 mls/hr Documented by: [id number] Admin: 08/02/18 11:37 Dose: 240 mls/hr Documented by: [id number] Medical Decision Making Differential Diagnosis Differential diagnosis: Etiologies such as infections, reactive airway disease, COPD, pneumonia, pleural effusion, pulmonary edema, ARDS, pneumothorax, CHF, cardiac ischemia, cardiac tamponade, dysrhythmia, anemia, pulmonary embolism, musculoskeletal, gastrointestinal process, as well as others were entertained. Medical Records Attestation: I reviewed the patient's medical records. Home Medications Current Medication List: was personally reviewed by me Laboratory Data Attestation: I reviewed the patient's lab results. Result diagrams: 08/02/18 10:00 08/02/18 10:00 Lab Results 08/02/18 08/02/18 08/02/18 Range/Units 09:50 10:00 10:00 WBC 6.09 (4.8-10.8) K/uL RBC 3.54 L (4.2-5.4) M/uL Hgb 10.4 L (12.0-16.0) g/dL Hct 32.6 L (37-47) % MCV 92.1 (80-100) fL MCH 29.4 (25-34) pg MCHC 31.9 L (32-36) g/dL RDW Std Deviation 57.4 H (36.4-46.3) fL RDW Coeff of Nidhi 17.1 H (11.5-14.5) % Plt Count 287 (130-400) K/uL MPV 11.1 H (7.4-10.4) fL Immature Gran % (Auto) 0.3 % Neut % (Auto) 83.5 % Lymph % (Auto) 11.7 % Garland % (Auto) 4.3 % Eos % (Auto) 0.0 % Baso % (Auto) 0.2 % Immature Gran # (Auto) 0.02 (0.00-0.02) K/uL Neut # (Auto) 5.09 (1.4-6.5) K/uL Lymph # (Auto) 0.71 L (1.2-3.4) K/uL Garland # (Auto) 0.26 (0.11-0.59) K/uL Eos # (Auto) 0.00 (0-0.5) K/uL Baso # (Auto) 0.01 (0-0.2) K/uL Sodium 141 (136-145) mmol/L Potassium 4.0 (3.5-5.1) mmol/L Chloride 108 H (98-107) mmol/L Carbon Dioxide 25 (21-32) mmol/L Anion Gap 8.0 (3-11) BUN 26 H (7-18) mg/dl Creatinine 0.99 (0.6-1.2) mg/dl Est Cr Clr Drug Dosing 42.0 ml/min Est GFR ( Amer) 61.1 Est GFR (Non-Af Amer) 52.7 BUN/Creatinine Ratio 25.9 H (10-20) Glucose 120 H (70-99) mg/dl POC Lactic Acid Lonnie (0.90-1.70) mmol/L Calcium 8.8 (8.5-10.1) mg/dl Total Bilirubin 0.7 (0.2-1) mg/dl AST 42 H (15-37) U/L ALT 25 (12-78) U/L Alkaline Phosphatase 54 (45-117) U/L Troponin I 0.056 H* (0-0.045) ng/ml NT-Pro-B Natriuret Pep (0-1800) pg/ml Total Protein 7.8 (6.4-8.2) gm/dl Albumin 3.1 L (3.4-5.0) gm/dl Globulin 4.7 H (2.5-4.0) gm/dl Albumin/Globulin Ratio 0.7 L (0.9-2) Procalcitonin (0-0.5) ng/ml Influenza Type A Ag Neg for Influ A (Neg) Influenza Type B Ag Neg for Influ B (Neg) 08/02/18 08/02/18 08/02/18 Range/Units 10:00 10:00 10:08 WBC (4.8-10.8) K/uL RBC (4.2-5.4) M/uL Hgb (12.0-16.0) g/dL Hct (37-47) % MCV (80-100) fL MCH (25-34) pg MCHC (32-36) g/dL RDW Std Deviation (36.4-46.3) fL RDW Coeff of Nidhi (11.5-14.5) % Plt Count (130-400) K/uL MPV (7.4-10.4) fL Immature Gran % (Auto) % Neut % (Auto) % Lymph % (Auto) % Garland % (Auto) % Eos % (Auto) % Baso % (Auto) % Immature Gran # (Auto) (0.00-0.02) K/uL Neut # (Auto) (1.4-6.5) K/uL Lymph # (Auto) (1.2-3.4) K/uL Garland # (Auto) (0.11-0.59) K/uL Eos # (Auto) (0-0.5) K/uL Baso # (Auto) (0-0.2) K/uL Sodium (136-145) mmol/L Potassium (3.5-5.1) mmol/L Chloride (98-107) mmol/L Carbon Dioxide (21-32) mmol/L Anion Gap (3-11) BUN (7-18) mg/dl Creatinine (0.6-1.2) mg/dl Est Cr Clr Drug Dosing ml/min Est GFR ( Amer) Est GFR (Non-Af Amer) BUN/Creatinine Ratio (10-20) Glucose (70-99) mg/dl POC Lactic Acid Lonnie 2.81 H (0.90-1.70) mmol/L Calcium (8.5-10.1) mg/dl Total Bilirubin (0.2-1) mg/dl AST (15-37) U/L ALT (12-78) U/L Alkaline Phosphatase (45-117) U/L Troponin I (0-0.045) ng/ml NT-Pro-B Natriuret Pep 14283 H (0-1800) pg/ml Total Protein (6.4-8.2) gm/dl Albumin (3.4-5.0) gm/dl Globulin (2.5-4.0) gm/dl Albumin/Globulin Ratio (0.9-2) Procalcitonin < 0.05 (0-0.5) ng/ml Influenza Type A Ag (Neg) Influenza Type B Ag (Neg) Imaging Data Radiologist's Impression: Radiology results as stated below per my review and the radiologist's interpretation: SINGLE VIEW CHEST CLINICAL HISTORY: Cough. Change in mental status. FINDINGS: An AP, portable, upright chest radiograph is compared to study dated 12/10/2011. The examination is degraded by portable technique and patient ro tation. The heart is enlarged and there is atherosclerotic calcification of the thoracic aorta. There is pulmonary vascular congestion. Small pleural effusions are identified with bibasilar consolidation. No pneumothorax is seen. The skeletal structures are osteopenic. The bony thorax is grossly intact. Degenerative change is noted in the shoulders and thoracic spine. IMPRESSION: 1. Cardiomegaly with evidence of congestive failure. 2. Small pleural effusions with bibasilar consolidation. This likely represents atelectasis. Clinical correlation will be required. Electronically signed by: Andrews Mariee M.D. 08/02/2018 10:50 AM cc: ~ CT SCAN OF THE BRAIN WITHOUT IV CONTRAST CLINICAL HISTORY: Change in mental status. COMPARISON STUDY: CT of the brain dated 01/16/2014. TECHNIQUE: Unenhanced axial CT scan of the brain is performed from the vertex to the skull base. A dose lowering technique was utilized adhering to the principles of ALARA. CT DOSE: 537.48 mGy.cm FINDINGS: Brain parenchyma: There are age-related involutional changes noting moderate subcortical and periventricular microangiopathic change. There is no hemorrhage, mass effect, or evidence of acute territorial ischemia by CT criteria. Park- white matter differentiation is preserved. No extra-axial fluid collection is seen. Ventricles, sulci, cisterns: Prominent secondary to involutional change. Intracranial vasculature: There is atherosclerotic calcification of the cavernous carotid and vertebral arteries. Calvarium: Unremarkable. Sinuses and mastoids: The visualized paranasal sinuses are clear. Findings suggest previous left mastoid surgery. The mastoid air cells are well pneumatized. Orbits: The bony orbits are grossly intact. IMPRESSION: There is no hemorrhage, mass effect, or evidence of acute territorial ischemia by CT criteria. Electronically signed by: Andrews Mariee M.D. 08/02/2018 11:36 AM ECG Data Attestation: I personally reviewed and interpreted this ECG as follows: Indication: SOB/dyspnea Rate (beats per minute): 100 Rhythm: atrial flutter Findings: + PVC; no ST elevation Blood Pressure Blood Pressure Findings: Normal blood pressure MDM Narrative This is an 83-year-old female who presents to the ED with a chief complaint of some respiratory issues. The patient was sent from [facility]. The patient is a poor historian. Unable to obtain additional history from the patient. She was sent over for shortness of breath. Initial vital signs are stable. She is afebrile. Her exam reveals some diminished breath sounds bilaterally. Further details noted above. CBC is unremarkable. Troponin is slightly elevated. BNP is 23,000. BUN is 26. Creatinine is normal. Chest x- ray reveals findings concerning for congestive heart failure. EKG shows A. fib/a flutter at a rate of 100. CT scan of the brain did not show acute process. The patient was started on IV antibiotics. Because of these symptoms and changes on the test results, the patient be seen by the hospitalist for further evaluation and care. Impression & Plan CHF (congestive heart failure), PNA (pneumonia) Discharge Plan Visit Data Chief Complaint: Illness Stated Complaint: pnuemonia / [facility] ED Provider: Adi Knott ED Midlevel Provider: Eliezer Fuchs Discharge Problem: CHF (congestive heart failure), PNA (pneumonia) Discharge Instructions Interventions: ED Discharge Assessment Last Done: 08/02/18 13:30 Forms Stand Alone Forms: [employer] [facility] Prescriptions Prescriptions: No Action fluticasone-salmeterol [Advair Diskus] 250-50 mcg/dose blister with device 2 puff Inhalation DAILY PRN (Reason: Shortness Of Breath) RF: 0 prednisone 10 mg tablet 10 mg PO DAILY RF: 0 atorvastatin 10 mg tablet 10 mg PO DAILY RF: 0 hydrocodone-acetaminophen 5-325 mg tablet 1 tab PO Q6 PRN (Reason: Pain) RF: 0 alendronate 70 mg tablet 70 mg PO WK RF: 0 levothyroxine 50 mcg tablet 50 mcg PO DAILY RF: 0 omeprazole 20 mg capsule,delayed release(DR/EC) 20 mg PO DAILY RF: 0 methylprednisolone sodium succ 125 mg recon soln 125 mg IM DIRECTED RF: 0 escitalopram oxalate 10 mg tablet 10 mg PO DAILY RF: 0 metoprolol tartrate 25 mg tablet 25 mg PO DAILY RF: 0 Eliquis 5 mg tablet 5 mg PO DAILY RF: 0 Referrals Referrals: [facility] [Primary Care Provider] - Discharge Problem: CHF (congestive heart failure) Qualifiers: Heart failure type: unspecified Heart failure chronicity: unspecified Qualified Code(s): I50.9 - Heart failure, unspecified PNA (pneumonia) Qualifiers: Pneumonia type: due to unspecified organism Laterality: bilateral Lung location: unspecified part of lung Qualified Code(s): J18.9 - Pneumonia, unspecified organism The scribe's documentation has been prepared under my direction and personally reviewed by me in its entirety. I confirm that the note above accurately reflects all work, treatment, procedures, and medical decision making performed by me.
[2018-08-02] MEDS ORDERED: HYDROCODONE/ACETAMOPHEN 5/325MG TAB PO PRN (14:15)
[2018-08-02] MEDS ORDERED: LEVALBUTEROL HCL 0.63 MG/3 ML NEB NEB PRN (14:15)
--- NOTE | 2018-08-02 14:21 | History & Physical Report ---
Date of Service August 02, 2018 Assessment & Plan (1) CHF (congestive heart failure): Nurse at [facility] reports that pt started with audible wheezing last week. Pt was being treated for suspected pneumonia, Z-pack started 07/28/18. Prednisone was started last week. Was given Solumedrol 60mg IM last night. Albuterol nebs were started last night. Reports pt not eating well past 2 days. States pt usually talks and responds to questions and is alert to self, however today pt not talking. No fevers, cough, vomiting or diarrhea reported. In ER T: 37.2, P: 105 down to 91, R: 24-21, BP: 144/98, 93% on RA. WBC: 6, Hgb: 10.4, BUN: 26, Cr: 0.9, (unsure of baseline). BNP: 23,346 CXR:1. Cardiomegaly with evidence of congestive failure. 2. Small pleural effusions with bibasilar consolidation. This likely represents atelectasis. Clinical correlation will be required. -Hx echo in 2011: EF: 55%, mild-moderate dilated left atrium, mild right atrial dilation, no significant valve abnormalities -Pt given initial lasix 40mg IV -monitor I&O's, low sodium diet -lasix 40mg daily -echo -CXR in am -cardiology consult, appreciate recommendations -monitor CBC, BMP (2) COPD exacerbation: In ER: POC Lactate: 2.8, Procalcitonin WNL. Negative influenza swab CXR: 1. Cardiomegaly with evidence of congestive failure. 2. Small pleural effusions with bibasilar consolidation. This likely represents atelectasis. Clinical correlation will be required. -In ER was given zosyn, levaquin, albuterol neb -pending blood cultures -xopenex nebs -continue advair (3) Elevated lactic acid level: -pending blood cultures -trend lactic acid -pending UA (4) Elevated troponin: Troponin: 0.05. EKG: a-fib, nonspecific ST abnormality -trend troponin (5) A-fib: Chronic a-fib, on eliquis Rate controlled -continue eliquis, metoprolol (6) HLD (hyperlipidemia): -continue statin (7) Hypothyroidism: -TSH pending -continue levothyroxine (8) Depression: -continue lexapro (9) GERD (gastroesophageal reflux disease): -continue PPI (10) Chronic low back pain: -continue norco prn pain DVT Prophylaxis -On eliquis Full Code as per discussion with pt and pt's paperwork from [facility] Follows with Dr Campa at [facility] for routine care Pt was seen with Dr Thornton. See addendum History of Present Illness Chief Complaint: SOB Primary Care Provider: [facility] Pt is 83 y/o F with PMH hypothyroidism, HLD, COPD, chronic a-fib on eliquis, GERD, dysphagia, dementia, vitamin B12 deficiency, chronic low back pain, depression, colon CA s/p sigmoidectomy presented to ER from [facility] for SOB. Very limited history can be obtained from pt secondary to mental status. Spoke to nurse at [facility] and reports that pt started with audible wheezing last week. Pt was being treated for suspected pneumonia, Z-pack started 07/28/18. Prednisone was started last week. Was given Solumedrol 60mg IM last night. Albuterol nebs were started last night. Reports pt not eating well past 2 days. States pt usually talks and responds to questions and is alert to self. Today pt not talking. Pt was noted to feel very cold. States vitals have been stable and no recorded fevers. Nurse denies any noted cough, vomiting or diarrhea. Denies any known choking recently. Unable to obtain FH Allergies Allergy/AdvReac Type Severity Reaction Status Date / Time No Known Allergies Allergy Unverified 11/25/11 09:44 Home Medications Home Medications Medication Instructions Recorded Confirmed Type Calcium 600 + D(3) 1 cap PO BID 08/02/18 08/02/18 History albuterol sulfate 2.5 mg INHALATION QID PRN 08/02/18 08/02/18 History alendronate 70 mg PO WK 08/02/18 08/02/18 History atorvastatin 10 mg PO HS 08/02/18 08/02/18 History bisacodyl [Dulcolax (bisacodyl)] 10 mg OR DAILY PRN 08/02/18 08/02/18 History cholecalciferol (vitamin D3) 2,000 unit PO DAILY 08/02/18 08/02/18 History [Vitamin D3] cyanocobalamin (vitamin B-12) 1,000 mcg IM MONTHLY 08/02/18 08/02/18 History docusate sodium [Colace] 100 mg PO BID 08/02/18 08/02/18 History escitalopram oxalate 10 mg PO DAILY 08/02/18 08/02/18 History fluticasone-salmeterol [Advair 2 puff INHALATION HS 08/02/18 08/02/18 History Diskus] levothyroxine 50 mcg PO DAILY 08/02/18 08/02/18 History omeprazole 20 mg PO DAILY 08/02/18 08/02/18 History prednisone 10 mg PO UD 08/02/18 08/02/18 History apixaban [Eliquis] 5 mg PO BID 30 Days #60 tab 08/06/18 Rx furosemide 20 mg PO QAM 30 Days #30 tab 08/06/18 Rx lisinopril 2.5 mg PO QAM 30 Days #30 tab 08/06/18 Rx metoprolol succinate 12.5 mg PO BID 30 Days #30 tab 08/06/18 Rx midodrine 2.5 mg PO TID@0800,1200,1700 10 08/06/18 Rx Days #30 tab spironolactone 12.5 mg PO DAILY 30 Days #15 tab 08/06/18 Rx Past Med/Surg History Medical History History of hysterectomy (Resolved) History of colon cancer (Resolved) Depression (Chronic) Chronic low back pain (Chronic) Vitamin B12 deficiency (Chronic) Dementia (Chronic) Dysphagia (Chronic) GERD (gastroesophageal reflux disease) (Chronic) A-fib (Chronic) COPD (chronic obstructive pulmonary disease) (Chronic) Hypothyroidism (Chronic) HTN (hypertension) (Chronic) HLD (hyperlipidemia) (Chronic) COPD (chronic obstructive pulmonary disease) (Chronic) Colon cancer (Chronic) Surgical History History of cholecystectomy (Resolved) Social History Preferred Language: Moldovan Beliefs That Will Affect Care: None marital status: / Current Living Situation: Correction Other Information That Helps Us Care for You: No Feels Safe at Home: Yes Safety Concerns: Feels Safe At This Time Smoking Status: Former smoker Hx Alcohol Use: No Hx Substance Use: No Review of Systems Unobtainable due to cognitive status Physical Exam Vital Signs (Past 24 Hours): Last Vital Signs Temp 37.2 C 08/02/18 10:00 Pulse 91 H 08/02/18 13:00 Resp 21 08/02/18 13:00 BP 130/84 08/02/18 13:00 Pulse Ox 92 08/02/18 12:30 Physical Exam: General: no acute distress, chronic ill appearing elderly female, overweight Head: normocephalic, atraumatic Eyes: PERRL, EOM's intact, conjunctiva non-injected, anicteric ENT: normal inspection external ears, nose, mucous membranes dry Neck: supple, trachea midline Lungs: no respiratory distress, +diffuse wheezing, rhonchi CV: RRR, no murmur, no JVD, mild pretibial edema Abd: normal BS, soft, non-tender Ext: no cyanosis, no calf tenderness Neuro: Alert, pt mumbles when talking, does say no when asked if having any pain, reports sensation of cold when touched with stethoscope Skin: warm, dry Results & Data Laboratory Results Short CBC 08/02/18 Range/Units 10:00 WBC 6.09 (4.8-10.8) K/uL Hgb 10.4 L (12.0-16.0) g/dL Hct 32.6 L (37-47) % Plt Count 287 (130-400) K/uL BMP 08/02/18 10:00 Sodium 141 Potassium 4.0 Chloride 108 H Carbon Dioxide 25 BUN 26 H Creatinine 0.99 Glucose 120 H Calcium 8.8 Cardiac Enzymes 08/02/18 08/02/18 Range/Units 10:00 14:33 Troponin I 0.056 H* 0.068 H* (0-0.045) ng/ml Liver Function 08/02/18 Range/Units 10:00 Total Bilirubin 0.7 (0.2-1) mg/dl AST 42 H (15-37) U/L ALT 25 (12-78) U/L Alkaline Phosphatase 54 (45-117) U/L Albumin 3.1 L (3.4-5.0) gm/dl Diagnostic Findings CXR: IMPRESSION: 1. Cardiomegaly with evidence of congestive failure. 2. Small pleural effusions with bibasilar consolidation. This likely represents atelectasis. Clinical correlation will be required. CT HEAD: IMPRESSION: There is no hemorrhage, mass effect, or evidence of acute troy torial ischemia by CT criteria. ECG Rate (beats per minute): 102 Rhythm: atrial fibrillation Findings: + nonspecific-ST abn Supervising Physician Co-Signing Physician Notes Pt was seen and examined. Agreed with Nkechi CHIN exam, assessment and plan. Pt is 83 y/o F with PMH hypothyroidism, HLD, COPD, chronic a-fib on eliquis, GERD, dysphagia, dementia, vitamin B12 deficiency, chronic low back pain, depression, colon CA s/p sigmoidectomy presented to ER from [facility] for SOB. CXR showed Small pleural effusions with bibasilar consolidation. Received Levaquin and Zosyn in the ER. Will continue Zosyn IV for now. Continue IV lasix for now. follow up blood cx. Cardiology consult. MD Norberto (1) CHF (congestive heart failure) Heart failure chronicity: unspecified Heart failure type: unspecified Qualified Code(s): I50.9 - Heart failure, unspecified
[2018-08-02] MEDS ORDERED: ACETAMINOPHEN 325 MG TAB PO PRN (14:37)
[2018-08-02] MEDS ORDERED: PERFLUTREN LIPID MICROSPHERE (DEFINITY) IV ONE (15:59)
[2018-08-02 16:37] LABS: Influenza A virus by PCR Neg for Influ A (Neg); Influenza B virus by PCR Neg for Influ B (Neg)
--- NOTE | 2018-08-02 16:52 | Cardiology Consultation ---
Date of Consultation August 02, 2018 Assessment & Plan (1) Cardiomyopathy: Echocardiogram demonstrates severe LV systolic dysfunction patient with signs/symptoms of congestive heart failure. Small bilateral pleural effusions secondary to acute systolic heart failure, and hypoalbuminemia. Agree with Lasix 40 mg IV daily. She otherwise manifest no peripheral edema, orthopnea, or chest discomfort. Will initiate evidence-based heart failure medical therapy during hospitalization. Begin with low-dose ANGELICA inhibitor, lisinopril 2.5 mg daily. Metoprolol tartrate will be transitioned to succinate formulation prior to discharge. Follow daily weight, fluid balance, electrolytes, and GFR. (2) Systolic heart failure: (3) A-fib: Chronic per review of records. Rate controlled currently on low-dose beta-alba therapy. Continue anticoagulation with Eliquis. The appropriate dose is 5 mg twice daily. (4) HTN (hypertension): History of Present Illness Reason for Consultation: CHF Requesting Physician: Dr. Thornton Attending Physician: Jonathan Thornton MD History of Present Illness Patient seen and examined at the bedside.Poor historian due to underlying dementia. Denies chest pain or unusual shortness of breath. Admitted through the emergency department with change in mental status. She is a resident of [facility]. X-ray demonstrating cardiomegaly, pleural effusions, and congestion. Carries history of chronic atrial fibrillation anticoagulated with Eliquis. 2D echo performed at bedside demonstrates severe left ventricular systolic dysfunction with ejection fraction 25-30%. Allergies Allergy/AdvReac Type Severity Reaction Status Date / Time No Known Allergies Allergy Unverified 11/25/11 09:44 Home Medications Home Medications Medication Instructions Recorded Confirmed Type albuterol sulfate 2.5 mg INHALATION QID PRN 08/02/18 08/02/18 History alendronate 70 mg PO WK 08/02/18 08/02/18 History apixaban [Eliquis] 5 mg PO DAILY 08/02/18 08/02/18 History atorvastatin 10 mg PO HS 08/02/18 08/02/18 History bisacodyl [Dulcolax (bisacodyl)] 10 mg IN DAILY PRN 08/02/18 08/02/18 History calcium carbonate-vitamin D3 1 cap PO BID 08/02/18 08/02/18 History [Calcium 600 + D(3)] cholecalciferol (vitamin D3) 2,000 unit PO DAILY 08/02/18 08/02/18 History [Vitamin D3] cyanocobalamin (vitamin B-12) 1,000 mcg IM MONTHLY 08/02/18 08/02/18 History docusate sodium [Colace] 100 mg PO BID 08/02/18 08/02/18 History escitalopram oxalate 10 mg PO DAILY 08/02/18 08/02/18 History fluticasone-salmeterol [Advair 2 puff INHALATION HS 08/02/18 08/02/18 History Diskus] hydrocodone-acetaminophen 1 tab PO Q6 PRN 08/02/18 08/02/18 History levothyroxine 50 mcg PO DAILY 08/02/18 08/02/18 History methylprednisolone sodium succ 125 mg IM DIRECTED 08/02/18 08/02/18 History metoprolol tartrate 25 mg PO DAILY 08/02/18 08/02/18 History omeprazole 20 mg PO DAILY 08/02/18 08/02/18 History prednisone 10 mg PO UD 08/02/18 08/02/18 History Patient History Medical History History of hysterectomy (Resolved) History of colon cancer (Resolved) Depression (Chronic) Chronic low back pain (Chronic) Vitamin B12 deficiency (Chronic) Dementia (Chronic) Dysphagia (Chronic) GERD (gastroesophageal reflux disease) (Chronic) A-fib (Chronic) COPD (chronic obstructive pulmonary disease) (Chronic) Hypothyroidism (Chronic) HTN (hypertension) (Chronic) HLD (hyperlipidemia) (Chronic) COPD (chronic obstructive pulmonary disease) (Chronic) Colon cancer (Chronic) Surgical History History of cholecystectomy (Resolved) Social History Preferred Language: [place] Communication Ability: Effective Beliefs That Will Affect Care: None marital status: / Current Living Situation: Skilled Nursing Other Information That Helps Us Care for You: No Feels Safe at Home: Yes Safety Concerns: Feels Safe At This Time Smoking Status: Former smoker Hx Alcohol Use: No Hx Substance Use: No Review of Systems Pertinent positive noted per HPI. A conference of 10 system review could not be completed as the patient is a poor historian. Physical Exam Vital Signs (Past 24 Hours): Last Vital Signs Temp 35.9 C L 08/02/18 14:16 Pulse 86 08/02/18 14:31 Resp 18 08/02/18 14:16 BP 140/77 08/02/18 14:16 Pulse Ox 97 08/02/18 14:16 Physical Exam: General: NAD, Chronically ill. HEENT: Mucous membranes are dry. Normocephalic. Atraumatic. Conjunctiva pink, no scleral icterus. Neck: No carotid bruits, the carotid upstrokes are brisk. No JVD. No HJR Heart: Irregular rhythm,normal S-1 and S-2 no S-3 or S-4 gallop. No murmurs or rub appreciated. PMI is not displaced. No RV heave. Lungs: Clear bilateral without rales , rhonchi, or wheeze. Abdomen: Normal bowel sounds. Soft. Nontender. No masses or organomegaly. No abdominal bruits. Extremities: No clubbing, cyanosis, or edema. Pulses: radial=2/4, posterior tibial=2/4. Neuro: Cranial nerves grossly intact. No focal motor deficit.
[2018-08-02] MEDS: LEVALBUTEROL HCL 0.63 MG/3 ML NEB NEB SCH ×2 (16:54→19:14)
[2018-08-02] MEDS ORDERED: CONSULT PHARMACY STA (17:10)
[2018-08-02 17:45] LABS: Appearance Urine Clear (Clear); Bilirubin Urine Negative (Negative); Blood Urine 1+ (Negative); Color Urine Yellow; Epithelial Cell Urine Auto 0-5 /lpf (0-5); Glucose Urine UA Negative (Negative); Ketones Urine Negative (Negative); Leukocyte Esterase Urine 2+ (Negative); Nitrite Urine Negative (Negative); Protein Urine Negative (Negative); Specific Gravity Urine 1.011 (1.000-1.030); Urobilinogen Urine Negative (Negative); WBC Urine Automated >30 /hpf (0-5); pH Urine 6.5 (4.5-7.5)
[2018-08-02 17:58] LABS: Bacteria Urine Automated 1+ (Negative)
[2018-08-02 18:01] LABS: RBC Urine Automated 0-4 /hpf (0-4)
[2018-08-02] MEDS: PIPERACILLIN/TAZOBACTAM 3.375 GM in DEXTROSE 5% 100 ML IV SCH (18:27)
[2018-08-02] MEDS: APIXABAN 5 MG TABLET PO SCH (20:54)
[2018-08-02] MEDS: FLUTICASONE/SALMETEROL 250/50 (ADVAIR) 14 PUFF/1 INHALER INH SCH (20:54)
[2018-08-02] MEDS: ATORVASTATIN 10 MG TAB PO SCH (20:54)
[2018-08-02] MEDS: DOCUSATE SODIUM 100 MG CAP PO SCH (20:54)
[2018-08-03] MEDS: LEVALBUTEROL HCL 0.63 MG/3 ML NEB NEB SCH ×4 (02:06→19:42)
[2018-08-03] MEDS: PIPERACILLIN/TAZOBACTAM 3.375 GM in DEXTROSE 5% 100 ML IV SCH ×3 (02:31→17:44)
[2018-08-03 06:27] LABS: Hematocrit (blood only) 30.8 % (37-47); Mean Corpuscular Hgb Conc 32.5 g/dL (32-36); Mean Corpuscular Volume 89.8 fL (80-100); Mean Platelet Volume 11.2 fL (7.4-10.4); Platelet Count 253 K/uL (130-400); RDW Coefficient of Variation 16.9 % (11.5-14.5); RDW Standard Deviation 55.3 fL (36.4-46.3); Red Blood Count 3.43 M/uL (4.2-5.4); White Blood Count 6.69 K/uL (4.8-10.8)
[2018-08-03] MEDS: LEVOTHYROXINE SODIUM 50 MCG TABLET PO SCH (06:41)
[2018-08-03 06:53] LABS: BUN Creatinine Ratio 20.6 (10-20); Creatinine Clr Calc Pharmacy 31.8 ml/min; Est GFR (African American) 46.1; Est GFR (Non-African American) 39.7; Magnesium 1.5 mg/dl (1.8-2.4); Potassium 3.3 mmol/L (3.5-5.1)
[2018-08-03] MEDS: LISINOPRIL 2.5 MG TAB PO SCH (07:49)
[2018-08-03] MEDS: DOCUSATE SODIUM 100 MG CAP PO SCH ×2 (07:49→21:27)
[2018-08-03] MEDS: APIXABAN 5 MG TABLET PO SCH ×2 (07:50→21:27)
[2018-08-03] MEDS: ESCITALOPRAM OXALATE 10 MG TAB PO SCH (07:50)
[2018-08-03] MEDS: METOPROLOL TARTRATE 25 MG TAB PO SCH (07:50)
[2018-08-03] MEDS: PANTOprazole 40 MG TAB PO SCH (07:50)
[2018-08-03] MEDS ORDERED: POTASSIUM CHLORIDE 20 MEQ TABCR PO ONE (07:55)
--- NOTE | 2018-08-03 08:40 | XRay Report ---
XR chest 1V portable CLINICAL HISTORY: CHF dyspnea COMPARISON STUDY: 08/02/2018 FINDINGS: Congestive heart failure similar to the prior study. Small bilateral pleural effusions. Sta ble cardiomegaly. Prominent pulmonary vasculature. IMPRESSION: Congestive heart failure unchanged from the prior study. The above report was generated using voice recognition software. It may contain grammatical, syntax or spelling errors. Electronically signed by: Edgard Reyes M.D. 08/03/2018 8:38 AM
[2018-08-03] MEDS: MAGNESIUM SULFATE / D5W 1 GM/100 ML BAG IV SCH ×2 (08:51→09:43)
[2018-08-03] MEDS ORDERED: FUROSEMIDE 40 MG in SYRINGE 0 ML IV SCH (09:00)
[2018-08-03] MEDS ORDERED: APIXABAN 5 MG TABLET PO SCH (09:00)
--- NOTE | 2018-08-03 15:39 | Hospitalist Progress Note ---
Date of Service August 03, 2018 Assessment & Plan (1) Systolic CHF, acute: (2) CHF (congestive heart failure): CXR on admission showed cardiomegaly with evidence of congestive failure. Small pleural effusions with bibasilar consolidation Received Lasix 40mg IV yesterday Repeat CXR this morning showed Congestive heart failure unchanged from the prior study. ECHO showed severe global hypokinesis of left ventricles. LV systolic function severely reduced with EF 20-25 % Cardiology on board recommended to continue lasix 40mg IV Starting on low-dose ANGELICA inhibitor, lisinopril 2.5 mg daily and metoprolol 25mg Continue monitor daily I/O Will monitor BMP while on lasix (3) COPD exacerbation: CXR showed small pleural effusions with bibasilar consolidation Lactate elaveted on admission and Procalcitonin WNL. Negative influenza swab Continue Zosyn for now Continue duoneb treatment and advair Blood cx pending (4) Altered mental state: Metabolic encephalopathy possible related to acute illness CT head negative for any acute intracranial abnormality Fall precaution Stable (5) Elevated lactic acid level: Possible related to respiratory distress on admission due to CHF VS bacteremia Procalcitonin and WBC normal Pending blood cultures Lactate trending down Continue Zosyn (6) Elevated troponin: Demand ischemia due to CHF exacerbation Troponin: 0.05--> 0.068-->0.068 EKG showed Afib Continue statin and metoprolol Cardiology on board (7) A-fib: Rate controlled Continue Eliquis Continue metoprolol (8) Electrolyte imbalance: Mag and K replaced Monitor BMP (9) HLD (hyperlipidemia): continue statin (10) Hypothyroidism: continue levothyroxine (11) Depression: continue lexapro (12) GERD (gastroesophageal reflux disease): continue PPI (13) Chronic low back pain: Will hold norco due to altered mental status DVT Prophylaxis On eliquis CODE STATUS FULL CODE Subjective Pt was seen and examined Lying in bed with no distress Very lethargy Denies any chest pain, sob Physical Exam Vital Signs (Past 24 Hours): Last Vital Signs Temp 36.3 C L 08/03/18 15:01 Pulse 75 08/03/18 15:01 Resp 16 08/03/18 15:01 BP 107/76 08/03/18 15:01 Pulse Ox 96 08/03/18 15:01 Physical Exam: General- No acute distress Head- atraumatic Eyes- PERRL, EOMI, ENT- oropharynx clear Neck- supple, no JVD Lungs- decrease breath sound Heart- regular rhythm; no murmur Abdomen- normal bowel sounds, soft, nontender Extremities- no calf tenderness Neuro- alert, moves all 4 extremities Skin- warm & dry (1) CHF (congestive heart failure) Heart failure chronicity: unspecified Heart failure type: unspecified Qualified Code(s): I50.9 - Heart failure, unspecified
--- NOTE | 2018-08-03 17:47 | Cardiology Progress Note ---
Date of Service August 03, 2018 Assessment & Plan (1) Cardiomyopathy: Echocardiogram demonstrates severe LV systolic dysfunction patient with signs/symptoms of congestive heart failure with small bilateral pleural effusions which are likely multifactorial including hypoalbuminemia. Continue Lasix 40 mg IV daily. Lisinopril 2.5 mg daily added yesterday. Will not titrate further currently given borderline hypotension. Continue metoprolol tartrate with plans to transition to succinate formulation at time of discharge. Follow daily weight, fluid balance, electrolytes, and GFR. (2) Systolic heart failure: (3) A-fib: Chronic per review of records. Rate controlled currently on low-dose beta-alba therapy. Continue anticoagulation with Eliquis 5 mg twice daily. (4) HTN (hypertension): No medication changes today. Borderline hypotensive currently. Subjective Patient seen and examined at the bedside. Poor historian. Arouses to verbal stimuli. Denies chest pain or shortness of breath. No issues over the past 24 hours per discussion with nursing. Review of Systems All systems reviewed & are unremarkable except as noted in HPI & below Physical Exam Vital Signs (Past 24 Hours): Last Vital Signs Temp 36.3 C L 08/03/18 15:01 Pulse 75 08/03/18 15:01 Resp 16 08/03/18 15:01 BP 107/76 08/03/18 15:01 Pulse Ox 96 08/03/18 15:01 Physical Exam: General: NAD, Chronically ill. HEENT: Mucous membranes are dry. Normocephalic. Atraumatic. Conjunctiva pink, no scleral icterus. Neck: No carotid bruits, the carotid upstrokes are brisk. No JVD. No HJR Heart: Irregular rhythm,normal S-1 and S-2 no S-3 or S-4 gallop. No murmurs or rub appreciated. PMI is not displaced. No RV heave. Lungs: Poor effort. Diminished breath sounds at the bases bilateral. Scant crackles at the left base. Abdomen: Normal bowel sounds. Soft. Nontender. No masses or organomegaly. No abdominal bruits. Extremities: No clubbing, cyanosis, or edema. Pulses: radial=2/4, posterior tibial=2/4. Neuro: Cranial nerves grossly intact. No focal motor deficit.
[2018-08-03] MEDS: ATORVASTATIN 10 MG TAB PO SCH (21:27)
[2018-08-03] MEDS: FLUTICASONE/SALMETEROL 250/50 (ADVAIR) 14 PUFF/1 INHALER INH SCH (21:27)
[2018-08-04] MEDS: LEVALBUTEROL HCL 0.63 MG/3 ML NEB NEB SCH ×4 (02:20→18:48)
[2018-08-04] MEDS: PIPERACILLIN/TAZOBACTAM 3.375 GM in DEXTROSE 5% 100 ML IV SCH ×2 (02:38→14:08)
[2018-08-04] MEDS: LEVOTHYROXINE SODIUM 50 MCG TABLET PO SCH (06:23)
[2018-08-04 06:53] LABS: Creatinine Clr Calc Pharmacy 30.6 ml/min; Est GFR (African American) 43.9; Est GFR (Non-African American) 37.9
[2018-08-04 08:29] LABS: BUN Creatinine Ratio 17.9 (10-20); Calcium 8.6 mg/dl (8.5-10.1); Creatinine Clr Calc Pharmacy 30.4 ml/min; Est GFR (African American) 43.5; Est GFR (Non-African American) 37.6; Potassium 2.9 mmol/L (3.5-5.1)
[2018-08-04] MEDS: APIXABAN 5 MG TABLET PO SCH ×2 (08:44→20:19)
[2018-08-04] MEDS: ESCITALOPRAM OXALATE 10 MG TAB PO SCH (08:44)
[2018-08-04] MEDS: DOCUSATE SODIUM 100 MG CAP PO SCH ×2 (08:44→20:19)
[2018-08-04] MEDS: PANTOprazole 40 MG TAB PO SCH (08:45)
[2018-08-04] MEDS: LISINOPRIL 2.5 MG TAB PO SCH (08:45)
[2018-08-04] MEDS: METOPROLOL TARTRATE 25 MG TAB PO SCH (08:45)
[2018-08-04] MEDS ORDERED: FUROSEMIDE 40 MG in SYRINGE 0 ML IV ONE (11:15)
--- NOTE | 2018-08-04 13:57 | Cardiology Progress Note ---
Date of Service August 04, 2018 Assessment & Plan (1) Cardiomyopathy: Echocardiogram demonstrates severe LV systolic dysfunction. Patient treated with intravenous diuretic therapy times 3 days. Lab studies suggesting mild intravascular volume depletion. She has improved clinically. No evidence of edema, orthopnea, or PND. Hold Lasix today. Continue low-dose lisinopril. Consider addition of low-dose Aldactone pending review of a.m. labs. Transition metoprolol tartrate to Toprol-XL at time of discharge. (2) Systolic heart failure: (3) Hypokalemia due to loss of potassium: Give 40 mEq of potassium chloride elixir now. Repeat basic metabolic panel at 5 PM. Consider addition of low-dose Aldactone if blood pressure tolerates. (4) A-fib: Chronic per review of records. Rate controlled currently on low-dose beta-alba therapy. Continue anticoagulation with Eliquis 5 mg twice daily. (5) HTN (hypertension): No medication changes today. Borderline hypotensive. Subjective Patient seen and examined at the bedside. More alert today. Receiving breathing treatment at this time. No orthopnea, PND, or edema. Creatinine trending upward therefore, diuretics placed on hold today. No chest discomfort. Rate controlled atrial fibrillation on telemetry. No signs/symptoms of GI/ blood loss. Hypokalemia noted. Review of Systems All systems reviewed & are unremarkable except as noted in HPI & below Physical Exam Vital Signs (Past 24 Hours): Last Vital Signs Temp 36.6 C 08/04/18 11:32 Pulse 58 L 08/04/18 13:50 Resp 18 08/04/18 13:50 BP 93/63 L 08/04/18 11:32 Pulse Ox 92 08/04/18 13:50 Physical Exam: General: NAD, Chronically ill. HEENT: Mucous membranes are dry. Normocephalic. Atraumatic. Conjunctiva pink, no scleral icterus. Neck: No carotid bruits, the carotid upstrokes are brisk. No JVD. No HJR Heart: Irregular rhythm,normal S-1 and S-2 no S-3 or S-4 gallop. No murmurs or rub appreciated. PMI is not displaced. No RV heave. Lungs: Poor effort. Diminished breath sounds at the bases bilateral. No crackles, rhonchi, or wheeze. Abdomen: Normal bowel sounds. Soft. Nontender. No masses or organomegaly. No abdominal bruits. Extremities: No clubbing, cyanosis, or edema. Pulses: radial=2/4, posterior tibial=2/4. Neuro: Cranial nerves grossly intact. No focal motor deficit. (1) Cardiomyopathy Cardiomyopathy type: unspecified Qualified Code(s): I42.9 - Cardiomyopathy, unspecified (2) Systolic heart failure Heart failure chronicity: acute Qualified Code(s): I50.21 - Acute systolic (congestive) heart failure
[2018-08-04] MEDS ORDERED: POTASSIUM CHLORIDE 20 MEQ/15 ML UDC PO ONE (14:00)
[2018-08-04 18:12] LABS: BUN Creatinine Ratio 19.8 (10-20); Calcium 8.6 mg/dl (8.5-10.1); Creatinine Clr Calc Pharmacy 30.9 ml/min; Est GFR (African American) 44.3; Est GFR (Non-African American) 38.3
[2018-08-04] MEDS ORDERED: SODIUM CHLORIDE 0.9% 250 ML IV ONE (19:40)
--- NOTE | 2018-08-04 19:51 | Hospitalist Progress Note ---
Date of Service August 04, 2018 Assessment & Plan (1) Systolic CHF, acute: (2) CHF (congestive heart failure): Cardiomyopathy/ Systolic heart failure: Echocardiogram demonstrates severe LV systolic dysfunction. Patient treated with intravenous diuretic therapy times 3 days. Lab studies suggesting mild intravascular volume depletion. She has improved clinically. No evidence of edema, orthopnea, or PND. Hold Lasix today. Continue low-dose lisinopril. Consider addition of low-dose Aldactone pending review of a.m. labs. Transition metoprolol tartrate to Toprol-XL at time of discharge. recent blood pressures are low; give small bolus of IV fluids 250 cc (3) COPD exacerbation: CXR showed small pleural effusions with bibasilar consolidation Lactate elaveted on admission and Procalcitonin WNL. Negative influenza swab Continue duoneb treatment and advair was initially on Zosyn, Zosyn stopped on 08/04/18 as patient is on room air and blood culture no growth to date (4) Altered mental state: Metabolic encephalopathy possible related to acute illness CT head negative for any acute intracranial abnormality Fall precaution Stable (5) Elevated lactic acid level: resolved (6) Elevated troponin: Demand ischemia due to CHF exacerbation Troponin: 0.05--> 0.068-->0.068 EKG showed Afib Continue statin and metoprolol (7) A-fib: Rate controlled Continue Eliquis Continue metoprolol (8) Electrolyte imbalance: Hypokalemia AM level as 2.9 and patient was given oral potassium and potassium now normal as 4 Hypomagnesemia serum magnesium today is stable (9) HLD (hyperlipidemia): continue statin (10) Hypothyroidism: continue levothyroxine (11) Depression: continue lexapro (12) GERD (gastroesophageal reflux disease): continue PPI (13) Chronic low back pain: hold norco due to initial altered mental status on this hospital stay pain is controlled DVT Prophylaxis On eliquis CODE STATUS FULL CODE Subjective Patient's mental status is better today. is awake and verbal. denies acute pain. denies shortness of breath. on room air. blood pressure is low but patient appears asymptomatic. History of dementia. cooperative Physical Exam Vital Signs (Past 24 Hours): Last Vital Signs Temp 36.5 C 08/04/18 19:20 Pulse 76 08/04/18 19:20 Resp 16 08/04/18 19:20 BP 81/51 L 08/04/18 19:20 Pulse Ox 96 08/04/18 19:20 Constitutional: WD/WN, vitals as above Eyes: PERRL, conjunctivae normal, anicteric sclerae EOM intact bilaterally ENMT: external ear and nose normal, oropharynx normal Respiratory: normal respiratory effort Cardiovascular: Rate/Rhythm: regular rate (atrial fibrillation) Gastrointestinal (Abdomen): normal bowel sounds, soft, nontender, no hepatosplenomegaly Musculoskeletal: Head/Neck/Chest: normocephalic and head atraumatic Neurologic: PERRL, EOMI, accommodation nl, no face palsy, no dysarthria Psychiatric: Orientation: alert (1) CHF (congestive heart failure) Heart failure chronicity: unspecified Heart failure type: unspecified Qualified Code(s): I50.9 - Heart failure, unspecified
[2018-08-04] MEDS: FLUTICASONE/SALMETEROL 250/50 (ADVAIR) 14 PUFF/1 INHALER INH SCH (20:17)
[2018-08-04] MEDS: ATORVASTATIN 10 MG TAB PO SCH (20:18)
[2018-08-04] MEDS ORDERED: SODIUM CHLORIDE 0.9% 1000ML 250 ML IV ONE (23:39)
[2018-08-05] MEDS: LEVALBUTEROL HCL 0.63 MG/3 ML NEB NEB SCH ×4 (01:45→19:07)
[2018-08-05] MEDS: LEVOTHYROXINE SODIUM 50 MCG TABLET PO SCH (06:23)
[2018-08-05 06:45] LABS: Albumin Globulin Ratio 0.7 (0.9-2); Albumin Level 2.8 gm/dl (3.4-5.0); BUN Creatinine Ratio 21.5 (10-20); Bilirubin,Total 0.5 mg/dl (0.2-1); Calcium 8.1 mg/dl (8.5-10.1); Est GFR (African American) 62.6; Globulin 3.8 gm/dl (2.5-4.0); Potassium 3.6 mmol/L (3.5-5.1); Total Protein 6.6 gm/dl (6.4-8.2)
[2018-08-05] MEDS: METOPROLOL TARTRATE 25 MG TAB PO SCH (08:45)
[2018-08-05] MEDS: PANTOprazole 40 MG TAB PO SCH (08:45)
[2018-08-05] MEDS: DOCUSATE SODIUM 100 MG CAP PO SCH ×2 (08:46→20:26)
[2018-08-05] MEDS: APIXABAN 5 MG TABLET PO SCH ×2 (08:46→20:26)
[2018-08-05] MEDS: ESCITALOPRAM OXALATE 10 MG TAB PO SCH (08:46)
[2018-08-05] MEDS: LISINOPRIL 2.5 MG TAB PO SCH (08:46)
[2018-08-05] MEDS ORDERED: LORazepam 0.25 MG/0.5 ML VIAL IV STA (12:36)
[2018-08-05] MEDS ORDERED: MIDODRINE HCL 2.5 MG TAB PO ONE (12:45)
--- NOTE | 2018-08-05 13:08 | Cardiology Progress Note ---
Date of Service August 05, 2018 Assessment & Plan (1) Cardiomyopathy: Echocardiogram demonstrates severe LV systolic dysfunction patient with signs/symptoms of congestive heart failure. Small bilateral pleural effusions secondary to acute systolic heart failure, and hypoalbuminemia. Agree with Lasix 40 mg IV daily. She otherwise manifest no peripheral edema, orthopnea, or chest discomfort. Appears clinically compensated today, renal function improved Plan change metoprolol tartrate to metoprolol succinate Add low-dose spironolactone 12.5 mg/day likely reinstitute furosemide orally in a.m. (2) Systolic heart failure: (3) A-fib: Chronic per review of records. Rate controlled currently on low-dose beta-alba therapy. Continue anticoagulation with Eliquis 5 mg twice daily. (4) HTN (hypertension): No medication changes today. Borderline hypotensive. Subjective Patient seen and examined at the bedside. More alert today. Patient requesting to go home not specifically oriented to recent events Denies chest pain or worsening shortness of breath Physical Exam Vital Signs (Past 24 Hours): Last Vital Signs Temp 36.3 C L 08/05/18 11:41 Pulse 85 08/05/18 11:41 Resp 18 08/05/18 11:41 BP 90/60 L 08/05/18 11:50 Pulse Ox 97 08/05/18 11:41 Constitutional: WD/WN, vitals as above Eyes: PERRL, conjunctivae normal, anicteric sclerae Neck: trachea midline, no thyromegaly Respiratory: no audible wheezes Auscultation: + diminished lung sounds Cardiovascular: Extremities: no edema Irregularly irregular, no S3 gallop Gastrointestinal (Abdomen): normal bowel sounds, soft, nontender, no hepatosplenomegaly Urinary catheter in place Results & Data Laboratory Results Laboratory Results - last 24 hr 08/04/18 08/05/18 17:39 05:28 Sodium 140 138 Potassium 4.0 D 3.6 Chloride 103 103 Carbon Dioxide 32 31 Anion Gap 5.0 4.0 BUN 26 H 21 H Creatinine 1.29 H 0.97 D Est Cr Clr Drug Dosing 30.9 41.0 Est GFR ( Amer) 44.3 62.6 Est GFR (Non-Af Amer) 38.3 54.0 BUN/Creatinine Ratio 19.8 21.5 H Glucose 98 73 Calcium 8.6 8.1 L Total Bilirubin 0.5 AST 26 ALT 18 Alkaline Phosphatase 50 Total Protein 6.6 Albumin 2.8 L Globulin 3.8 Albumin/Globulin Ratio 0.7 L (1) Cardiomyopathy Cardiomyopathy type: unspecified Qualified Code(s): I42.9 - Cardiomyopathy, unspecified (2) Systolic heart failure Heart failure chronicity: acute Qualified Code(s): I50.21 - Acute systolic (congestive) heart failure
[2018-08-05] MEDS: SPIRONOLACTONE 25 MG TAB PO SCH (13:52)
[2018-08-05] MEDS: MIDODRINE HCL 2.5 MG TAB PO SCH (16:41)
--- NOTE | 2018-08-05 18:57 | Hospitalist Progress Note ---
Date of Service August 05, 2018 Assessment & Plan (1) Systolic CHF, acute: (2) CHF (congestive heart failure): Cardiomyopathy/ Systolic heart failure: Echocardiogram demonstrates severe LV systolic dysfunction Patient had received IV Lasix on this admission currently Lasix held because of generally low blood pressures currently on: metoprolol succinate 12.5 mg BID spirolactone 12.5 mg daily lisinopril 2.5 mg daiy atorvastatin 10 mg daily had started midodrine due to low blood pressure will see if patient can tolerate oral 20 mg daily lasix starting tomorrow Patient treated with intravenous diuretic therapy times 3 days. Lab studies suggesting mild intravascular volume depletion. She has improved clinically. No evidence of edema, orthopnea, or PND. Hold Lasix today. Continue low-dose lisinopril. Consider addition of low-dose Aldactone pending review of a.m. labs. Transition metoprolol tartrate to Toprol-XL at time of discharge. recent blood pressures are low; give small bolus of IV fluids 250 cc (3) COPD exacerbation: admission CXR showed small pleural effusions with bibasilar consolidation Lactate elevated on admission and Procalcitonin WNL. Negative influenza swab Continue advair was initially on Zosyn, Zosyn stopped on 08/04/18 as patient is on room air and blood culture no growth to date currently on room air (4) Altered mental state: Metabolic encephalopathy possible related to acute illness CT head negative for any acute intracranial abnormality History of dementia. (5) Elevated lactic acid level: resolved (6) Elevated troponin: initial troponins on this admission from demand ischemia due to CHF exacerbation Continue CHF management (7) A-fib: Rate controlled Continue Eliquis Continue metoprolol (8) Electrolyte imbalance: Hypokalemia and Hypomagnesemia stable (9) HLD (hyperlipidemia): continue statin (10) Hypothyroidism: continue levothyroxine (11) Depression: continue lexapro (12) GERD (gastroesophageal reflux disease): continue PPI (13) Chronic low back pain: hold norco due to initial altered mental status on this hospital stay pain is controlled DVT Prophylaxis On eliquis CODE STATUS FULL CODE Subjective Patient currently sleeping Patient was seen and examined earlier today. no acute distress. no acute complaint Patient's blood pressure generally low normal today. Physical Exam Vital Signs (Past 24 Hours): Last Vital Signs Temp 36.7 C 08/05/18 15:06 Pulse 73 08/05/18 15:06 Resp 20 08/05/18 15:06 BP 127/80 08/05/18 15:06 Pulse Ox 96 08/05/18 15:06 Constitutional: WD/WN, vitals as above Eyes: PERRL, conjunctivae normal, anicteric sclerae EOM intact bilaterally ENMT: external ear and nose normal, oropharynx normal Respiratory: normal respiratory effort Cardiovascular: Rate/Rhythm: regular rate (atrial fibrillation) Gastrointestinal (Abdomen): normal bowel sounds, soft, nontender, no hepatosplenomegaly Musculoskeletal: Head/Neck/Chest: normocephalic and head atraumatic Neurologic: PERRL, EOMI, accommodation nl, no face palsy, no dysarthria Psychiatric: Orientation: alert (1) CHF (congestive heart failure) Heart failure chronicity: unspecified Heart failure type: unspecified Qualified Code(s): I50.9 - Heart failure, unspecified
[2018-08-05] MEDS: FLUTICASONE/SALMETEROL 250/50 (ADVAIR) 14 PUFF/1 INHALER INH SCH (19:36)
[2018-08-05] MEDS: METOPROLOL SUCC 25MG EXT REL TAB PO SCH (20:00)
[2018-08-05] MEDS: ATORVASTATIN 10 MG TAB PO SCH (20:26)
[2018-08-06] MEDS: LEVALBUTEROL HCL 0.63 MG/3 ML NEB NEB SCH ×2 (01:29→07:07)
[2018-08-06] MEDS: LEVOTHYROXINE SODIUM 50 MCG TABLET PO SCH (06:24)
[2018-08-06] MEDS ORDERED: LEVALBUTEROL HCL 0.63 MG/3 ML NEB NEB PRN (08:14)
[2018-08-06] MEDS: SPIRONOLACTONE 25 MG TAB PO SCH (08:55)
[2018-08-06] MEDS: METOPROLOL SUCC 25MG EXT REL TAB PO SCH (08:55)
[2018-08-06] MEDS: APIXABAN 5 MG TABLET PO SCH (08:56)
[2018-08-06] MEDS: DOCUSATE SODIUM 100 MG CAP PO SCH (08:56)
[2018-08-06] MEDS: PANTOprazole 40 MG TAB PO SCH (08:56)
[2018-08-06] MEDS: ESCITALOPRAM OXALATE 10 MG TAB PO SCH (08:56)
[2018-08-06] MEDS: LISINOPRIL 2.5 MG TAB PO SCH (08:56)
[2018-08-06] MEDS: MIDODRINE HCL 2.5 MG TAB PO SCH ×3 (08:57→16:02)
[2018-08-06] MEDS ORDERED: FUROSEMIDE 20 MG TAB PO SCH (09:00)
--- NOTE | 2018-08-06 14:38 | Hospitalist Progress Note ---
Date of Service August 06, 2018 Assessment & Plan (1) Systolic CHF, acute: (2) CHF (congestive heart failure): Cardiomyopathy/ Systolic heart failure: Echocardiogram demonstrates severe LV systolic dysfunction Patient had received Lasix on this admission currently on: metoprolol succinate 12.5 mg BID spirolactone 12.5 mg daily lisinopril 2.5 mg daiy atorvastatin 10 mg daily on midodrine due to low blood pressure on oral 20 mg daily lasix Patient should be seen by primary care doctor at nursing facility in 3 days Patient has been on multiple new medications on this hospital stay and while beneficial to the heart these medications may cause hypotension Also because, patient is on diruretic for cardiac health, primary care doctor should check patient's electrolytes and renal function and may need to adjust diuretic dosing and Eliquis dosing according to the renal function Acute kidney injury on CKD stage 3 acute kidney injury has resolved (3) COPD exacerbation: admission CXR showed small pleural effusions with bibasilar consolidation Lactate elevated on admission and Procalcitonin WNL. Negative influenza swab Continue advair was initially on Zosyn, Zosyn stopped on 08/04/18 as patient is on room air and blood culture no growth to date currently on room air (4) Altered mental state: Metabolic encephalopathy possible related to acute illness CT head negative for any acute intracranial abnormality History of dementia. (5) Elevated lactic acid level: resolved (6) Elevated troponin: initial troponins on this admission from demand ischemia due to CHF exacerbation Continue CHF management (7) A-fib: atrial fibrillation (chronic), anticoagulated with anticoagulation therapy of Eliquis, Rate controlled Continue Eliquis Continue metoprolol (8) Electrolyte imbalance: Hypokalemia and Hypomagnesemia stable (9) HLD (hyperlipidemia): continue statin (10) Hypothyroidism: continue levothyroxine (11) Depression: continue lexapro (12) GERD (gastroesophageal reflux disease): continue PPI (13) Chronic low back pain: hold norco due to initial altered mental status on this hospital stay pain is controlled DVT Prophylaxis On eliquis CODE STATUS FULL CODE Discharge Diagnosis acute systolic heart failure, atrial fibrillation (chronic), anticoagulated with anticoagulation therapy of Eliquis, acute kidney injury on chronic kidney disease stage 3 (acute kidney injury has resolved), altered mental status on admission (History of dementia) Discharge Instructions Patient should be seen by primary care doctor at nursing facility in 3 days Patient has been on multiple new medications on this hospital stay and while beneficial to the heart these medications may cause hypotension Also because, patient is on diruretic for cardiac health, primary care doctor should check patient's electrolytes and renal function and may need to adjust diuretic dosing and Eliquis dosing according to the renal function Patient has follow up with cardiology clinic 08/23/2018 9:00 AM Provider Kosta Patel DO Department Cardiology, [facility] CHF discharge instructions "Call your Primary Care doctor if any of the following symptoms or problems start or get worse: * Shortness of breath or difficulty breathing * Wake up at night short of breath * Chest pain * Cough * Swelling of your hands, feet, or legs * More fatigued or tired with your normal activity * Palpitations - sudden fast heart beats WEIGHT * Weigh yourself every morning after using the bathroom. * Use the same scale. * Wear the same amount of clothing. * Write your weight down on a chart. * Call your Primary Care doctor if you gain more than 2-3 pounds in 1-2 days. MEDICATIONS * Use this discharge instruction sheet for medication instructions. * Take your medications at the time your doctor ordered. * Do not skip a dose of your medicines. * If you miss a dose of medicine, take it as soon as possible, but DO NOT DOUBLE A DOSE. * Read your medicine information when you get home. * Know all of the side effects of your medicine. If in doubt, ask your pharmacist * Call your Primary Care doctor's office if you have any side effects. * Be sure all of your doctors know what medicine and herbs you take (including cold, flu, and herbal medicine). Take the following with you to your follow-up doctor appointments: * Weight Chart * Medication List * List of questions Do not drink excessive alcohol, beer or wine." Subjective Patient sleeping during the day but responsive to verbal cues. Have re-examined patient in afternoon and patient awake and alert. baseline mental status. no acute distress. she denies pain or shortness of breath Physical Exam Vital Signs (Past 24 Hours): Last Vital Signs Temp 36.5 C 08/06/18 11:15 Pulse 79 08/06/18 11:15 Resp 18 08/06/18 11:15 BP 92/60 L 08/06/18 11:15 Pulse Ox 97 08/06/18 11:15 Constitutional: WD/WN, vitals as above Eyes: PERRL, conjunctivae normal, anicteric sclerae EOM intact bilaterally ENMT: external ear and nose normal, oropharynx normal Respiratory: normal respiratory effort Cardiovascular: Rate/Rhythm: regular rate (atrial fibrillation) Gastrointestinal (Abdomen): normal bowel sounds, soft, nontender, no hepatosplenomegaly Musculoskeletal: Head/Neck/Chest: normocephalic and head atraumatic Neurologic: PERRL, EOMI, accommodation nl, no face palsy, no dysarthria Psychiatric: Orientation: alert (1) CHF (congestive heart failure) Heart failure chronicity: unspecified Heart failure type: unspecified Qualified Code(s): I50.9 - Heart failure, unspecified
--- NOTE | 2018-08-06 14:52 | Discharge Summary ---
Date of Service August 06, 2018 Admission HPI Per Admitting Provider Pt is 83 y/o F with PMH hypothyroidism, HLD, COPD, chronic a-fib on eliquis, GERD, dysphagia, dementia, vitamin B12 deficiency, chronic low back pain, depression, colon CA s/p sigmoidectomy presented to ER from [facility] for SOB. Very limited history can be obtained from pt secondary to mental status. Spoke to nurse at [facility] and reports that pt started with audible wheezing last week. Pt was being treated for suspected pneumonia, Z-pack started 07/28/18. Prednisone was started last week. Was given Solumedrol 60mg IM last night. Albuterol nebs were started last night. Reports pt not eating well past 2 days. States pt usually talks and responds to questions and is alert to self. Today pt not talking. Pt was noted to feel very cold. States vitals have been stable and no recorded fevers. Nurse denies any noted cough, vomiting or diarrhea. Denies any known choking recently. Unable to obtain FH Admission Exam Per Admitting Provider General: no acute distress, chronic ill appearing elderly female, overweight Head: normocephalic, atraumatic Eyes: PERRL, EOM's intact, conjunctiva non-injected, anicteric ENT: normal inspection external ears, nose, mucous membranes dry Neck: supple, trachea midline Lungs: no respiratory distress, +diffuse wheezing, rhonchi CV: RRR, no murmur, no JVD, mild pretibial edema Abd: normal BS, soft, non-tender Ext: no cyanosis, no calf tenderness Neuro: Alert, pt mumbles when talking, does say no when asked if having any pain, reports sensation of cold when touched with stethoscope Skin: warm, dry Principal Diagnosis acute systolic heart failure, atrial fibrillation (chronic), anticoagulated with anticoagulation therapy of Eliquis, acute kidney injury on chronic kidney disease stage 3 (acute kidney injury has resolved), altered mental status on admission (History of dementia) Discharge Exam Constitutional WD/WN, vitals as above Eyes PERRL, conjunctivae normal, anicteric sclerae EOM intact bilaterally ENMT external ear and nose normal, oropharynx normal Respiratory normal respiratory effort Cardiovascular Rate/Rhythm: regular rate (atrial fibrillation) Gastrointestinal (Abdomen) normal bowel sounds, soft, nontender, no hepatosplenomegaly Musculoskeletal Head/Neck/Chest: normocephalic and head atraumatic Neurologic PERRL, EOMI, accommodation nl, no face palsy, no dysarthria Psychiatric Orientation: alert Discharge Data Allergies Allergy/AdvReac Type Severity Reaction Status Date / Time No Known Allergies Allergy Unverified 11/25/11 09:44 Consultations 08/02/18 14:38 Consult Case Management - Discharge Planning Routine 08/02/18 14:52 Consult Cardiology Routine Ordered Studies 08/02/18 10:15 CT head/brain wo con Stat Hospital Course (1) Systolic CHF, acute: (2) CHF (congestive heart failure): Cardiomyopathy/ Systolic heart failure: Echocardiogram demonstrates severe LV systolic dysfunction Patient had received Lasix on this admission currently on: metoprolol succinate 12.5 mg BID spirolactone 12.5 mg daily lisinopril 2.5 mg daiy atorvastatin 10 mg daily on midodrine due to low blood pressure on oral 20 mg daily lasix Patient should be seen by primary care doctor at nursing facility in 3 days Patient has been on multiple new medications on this hospital stay and while beneficial to the heart these medications may cause hypotension Also because, patient is on diruretic for cardiac health, primary care doctor should check patient's electrolytes and renal function and may need to adjust diuretic dosing and Eliquis dosing according to the renal function Acute kidney injury on CKD stage 3 acute kidney injury has resolved (3) COPD exacerbation: admission CXR showed small pleural effusions with bibasilar consolidation Lactate elevated on admission and Procalcitonin WNL. Negative influenza swab Continue advair was initially on Zosyn, Zosyn stopped on 08/04/18 as patient is on room air and blood culture no growth to date currently on room air (4) Altered mental state: Metabolic encephalopathy possible related to acute illness CT head negative for any acute intracranial abnormality History of dementia. (5) Elevated lactic acid level: resolved (6) Elevated troponin: initial troponins on this admission from demand ischemia due to CHF exacerbation Continue CHF management (7) A-fib: atrial fibrillation (chronic), anticoagulated with anticoagulation therapy of Eliquis, Rate controlled Continue Eliquis Continue metoprolol (8) Electrolyte imbalance: Hypokalemia and Hypomagnesemia stable (9) HLD (hyperlipidemia): continue statin (10) Hypothyroidism: continue levothyroxine (11) Depression: continue lexapro (12) GERD (gastroesophageal reflux disease): continue PPI (13) Chronic low back pain: hold norco due to initial altered mental status on this hospital stay pain is controlled DVT Prophylaxis On eliquis CODE STATUS FULL CODE Discharge Diagnosis acute systolic heart failure, atrial fibrillation (chronic), anticoagulated with anticoagulation therapy of Eliquis, acute kidney injury on chronic kidney disease stage 3 (acute kidney injury has resolved), altered mental status on admission (History of dementia) Discharge Instructions Patient should be seen by primary care doctor at nursing facility in 3 days Patient has been on multiple new medications on this hospital stay and while beneficial to the heart these medications may cause hypotension Also because, patient is on diruretic for cardiac health, primary care doctor should check patient's electrolytes and renal function and may need to adjust diuretic dosing and Eliquis dosing according to the renal function Patient has follow up with cardiology clinic 08/23/2018 9:00 AM Provider Kosta Patel DO Department Cardiology, [facility] CHF discharge instructions "Call your Primary Care doctor if any of the following symptoms or problems start or get worse: * Shortness of breath or difficulty breathing * Wake up at night short of breath * Chest pain * Cough * Swelling of your hands, feet, or legs * More fatigued or tired with your normal activity * Palpitations - sudden fast heart beats WEIGHT * Weigh yourself every morning after using the bathroom. * Use the same scale. * Wear the same amount of clothing. * Write your weight down on a chart. * Call your Primary Care doctor if you gain more than 2-3 pounds in 1-2 days. MEDICATIONS * Use this discharge instruction sheet for medication instructions. * Take your medications at the time your doctor ordered. * Do not skip a dose of your medicines. * If you miss a dose of medicine, take it as soon as possible, but DO NOT DOUBLE A DOSE. * Read your medicine information when you get home. * Know all of the side effects of your medicine. If in doubt, ask your pharmacist * Call your Primary Care doctor's office if you have any side effects. * Be sure all of your doctors know what medicine and herbs you take (including cold, flu, and herbal medicine). Take the following with you to your follow-up doctor appointments: * Weight Chart * Medication List * List of questions Do not drink excessive alcohol, beer or wine." Total Time Total Time Spent Total Time Spent (In Minutes): 40 minutes Total Time Includes: Examination of the Patient, Discharge Planning and Medication Reconciliation Discharge Plan Discharge Items Patient Disposition: Transfer Half-Way Fac Reason For Visit: SOB Discharge Diagnosis: acute systolic heart failure, atrial fibrillation (chronic), anticoagulated with anticoagulation therapy of Eliquis, acute kidney injury on chronic kidney disease stage 3 (acute kidney injury has resolved), altered mental status on admission (History of dementia) Condition: Fair Discharge Goals: Improve disease control Activity: Resume your previous activity Non-emergency contact: Primary Care Provider and Assistant Bookkeeper Call non-emergency contact if: you have any medication questions Follow-up/Referrals: [facility] [Primary Care Provider] - Diet: Heart Healthy and Low Sodium (2gm) Diet Texture: Dental soft (bite-sized) Addtl Provider Instructions: Patient should be seen by primary care doctor at nursing facility in 3 days Patient has been on multiple new medications on this hospital stay and while beneficial to the heart these medications may cause hypotension Also because, patient is on diruretic for cardiac health, primary care doctor should check patient's electrolytes and renal function and may need to adjust diuretic dosing and Eliquis dosing according to the renal function Patient has follow up with cardiology clinic 08/23/2018 9:00 AM Provider Kosta Patel DO Department Cardiology, [facility] CHF discharge instructions "Call your Primary Care doctor if any of the following symptoms or problems start or get worse: * Shortness of breath or difficulty breathing * Wake up at night short of breath * Chest pain * Cough * Swelling of your hands, feet, or legs * More fatigued or tired with your normal activity * Palpitations - sudden fast heart beats WEIGHT * Weigh yourself every morning after using the bathroom. * Use the same scale. * Wear the same amount of clothing. * Write your weight down on a chart. * Call your Primary Care doctor if you gain more than 2-3 pounds in 1-2 days. MEDICATIONS * Use this discharge instruction sheet for medication instructions. * Take your medications at the time your doctor ordered. * Do not skip a dose of your medicines. * If you miss a dose of medicine, take it as soon as possible, but DO NOT DOUBLE A DOSE. * Read your medicine information when you get home. * Know all of the side effects of your medicine. If in doubt, ask your pharmacist * Call your Primary Care doctor's office if you have any side effects. * Be sure all of your doctors know what medicine and herbs you take (including cold, flu, and herbal medicine). Take the following with you to your follow-up doctor appointments: * Weight Chart * Medication List * List of questions Do not drink excessive alcohol, beer or wine." Prescriptions: New spironolactone 25 mg Tablet 12.5 mg PO DAILY 30 Days Qty: 15 RF: 0 midodrine 2.5 mg Tablet 2.5 mg PO TID@0800,1200,1700 10 Days Qty: 30 RF: 0 furosemide 20 mg Tablet 20 mg PO QAM 30 Days Qty: 30 RF: 0 metoprolol succinate 25 mg Tablet Extended Release 24 Hr 12.5 mg PO BID 30 Days Qty: 30 RF: 0 lisinopril 2.5 mg Tablet 2.5 mg PO QAM 30 Days Qty: 30 RF: 0 Eliquis 5 mg Tablet 5 mg PO BID 30 Days Qty: 60 RF: 0 Continued fluticasone-salmeterol [Advair Diskus] 250-50 mcg/dose blister with device 2 puff Inhalation HS RF: 0 prednisone 10 mg tablet 10 mg PO UD RF: 0 atorvastatin 10 mg tablet 10 mg PO HS RF: 0 alendronate 70 mg tablet 70 mg PO WK RF: 0 levothyroxine 50 mcg tablet 50 mcg PO DAILY RF: 0 omeprazole 20 mg capsule,delayed release(DR/EC) 20 mg PO DAILY RF: 0 escitalopram oxalate 10 mg tablet 10 mg PO DAILY RF: 0 albuterol sulfate 2.5 mg /3 mL (0.083 %) Solution For Nebulization 2.5 mg INHALATION QID PRN (Reason: Shortness Of Breath Or Wheezing) RF: 0 bisacodyl [Dulcolax (bisacodyl)] 10 mg Suppository 10 mg DC DAILY PRN (Reason: Constipation) RF: 0 cyanocobalamin (vitamin B-12) 1,000 mcg/mL Solution 1,000 mcg IM MONTHLY RF: 0 docusate sodium [Colace] 100 mg Capsule 100 mg PO BID RF: 0 Calcium 600 + D(3) 600 mg calcium- 200 unit Capsule 1 cap PO BID RF: 0 cholecalciferol (vitamin D3) [Vitamin D3] 2,000 unit Tablet 2,000 unit PO DAILY RF: 0 Discontinued hydrocodone-acetaminophen 5-325 mg tablet 1 tab PO Q6 PRN (Reason: Pain) RF: 0 methylprednisolone sodium succ 125 mg recon soln 125 mg IM DIRECTED RF: 0 metoprolol tartrate 25 mg tablet 25 mg PO DAILY RF: 0 Eliquis 5 mg tablet 5 mg PO DAILY RF: 0 Stand-Alone Forms: [facility] Discharge Orders: Discharge Order (Routine); Ordered 08/06/18 Ordered By: Elvis Vega Skilled Items Patient informed of condition?: Yes DNR: No Discharge Level of Care: Skilled Communicable Disease: No Discharge Prognosis: Stable Admission Data Admit Date/Time: 08/02/18 12:53 Attending Provider: Elvis Vega Admit Provider: Jonathan Thornton Primary Care Provider: [facility] Other Providers: Kosta Patel Service: Telemetry
== END 2018-08-06 19:41 | DRG 291 ==
LOC: ED 09:44 → SUATTDRO 12:53 → 2S 12:53
DX: I48.2 Chronic atrial fibrillation; J44.1 Chronic obstructive pulmonary disease with (acute) exacerbation; K21.9 Gastro-esophageal reflux disease without esophagitis; G93.41 Metabolic encephalopathy; E87.8 Other disorders of electrolyte and fluid balance, not elsewhere classified; M81.0 Age-related osteoporosis without current pathological fracture; E87.6 Hypokalemia; Z87.891 Personal history of nicotine dependence; E78.5 Hyperlipidemia, unspecified; E53.8 Deficiency of other specified B group vitamins; Z85.038 Personal history of other malignant neoplasm of large intestine; N17.9 Acute kidney failure, unspecified; F32.9 Major depressive disorder, single episode, unspecified; I13.0 Hypertensive heart and chronic kidney disease with heart failure and stage 1 through stage 4 chronic kidney disease, or unspecified chronic kidney disease; I24.8 Other forms of acute ischemic heart disease; G89.29 Other chronic pain; E83.42 Hypomagnesemia; E03.9 Hypothyroidism, unspecified; I50.21 Acute systolic (congestive) heart failure; M54.5 Low back pain

== ENCOUNTER 2019-05-06 05:05 | Inpatient (IN) ==
[2019-05-06] MEDS ORDERED: METOPROLOL TARTRATE 1 MG/ML VIAL IV PRN ×2 (05:20→10:21)
[2019-05-06] MEDS ORDERED: FUROSEMIDE 40 MG/4 ML VIAL IV STA (05:20)
[2019-05-06 05:53] LABS: Basophils # (auto) 0.02 K/uL (0-0.2); Basophils % (auto) 0.2 %; Eosinophils # (auto) 0.05 K/uL (0-0.5); Eosinophils % (auto) 0.4 %; Hematocrit (blood only) 33.5 % (37-47); Hemoglobin 10.8 g/dL (12.0-16.0); Immature Granulocytes # (auto) 0.04 K/uL (0.00-0.02); Immature Granulocytes % (auto) 0.3 %; Lymphocytes # (auto) 1.03 K/uL (1.2-3.4); Lymphocytes % (auto) 7.8 %; Mean Corpuscular Hemoglobin 28.3 pg (25-34); Mean Corpuscular Hgb Conc 32.2 g/dL (32-36); Mean Corpuscular Volume 87.9 fL (80-100); Mean Platelet Volume 10.3 fL (7.4-10.4); Monocytes % (auto) 7.6 %; Neutrophils # (auto) 10.99 K/uL (1.4-6.5); Neutrophils % (auto) 83.7 %; Platelet Count 284 K/uL (130-400); RDW Coefficient of Variation 17.9 % (11.5-14.5); RDW Standard Deviation 57.3 fL (36.4-46.3); Red Blood Count 3.81 M/uL (4.2-5.4); White Blood Count 13.13 K/uL (4.8-10.8)
[2019-05-06 06:06] LABS: INR 1.2 (0.9-1.1); Partial Thromboplastin Time 26.3 Seconds (21.0-31.0)
[2019-05-06 06:10] LABS: BUN Creatinine Ratio 20.4 (10-20); Calcium 9.6 mg/dl (8.5-10.1); Creatinine Clr Calc Pharmacy 40.4 ml/min; Est GFR (African American) 52.8; Est GFR (Non-African American) 45.6; Magnesium 1.7 mg/dl (1.8-2.4); Potassium 4.1 mmol/L (3.5-5.1)
[2019-05-06 06:14] LABS: Albumin Globulin Ratio 0.5 (0.9-2); Bilirubin,Total 0.5 mg/dl (0.2-1); Globulin 5.8 gm/dl (2.5-4.0); Total Protein 8.8 gm/dl (6.4-8.2); Troponin I 0.025 ng/ml (0-0.045)
[2019-05-06] MEDS ORDERED: PIPERACILLIN/TAZOBACTAM 4.5 GM/120 ML BAG IV ONE (06:20)
[2019-05-06] MEDS ORDERED: PIPERACILL/TAZOBAC CONSULT ACTIVE PRN ×2 (06:20→10:26)
[2019-05-06] MEDS ORDERED: VANCOMYCIN CONSULT ACTIVE PRN (06:27)
[2019-05-06] MEDS ORDERED: VANCOMYCIN HCL 1,750 MG in SODIUM CHLORIDE 0.9% 500 ML IV ONE (06:27)
[2019-05-06 06:34] LABS: Appearance Urine Turbid (Clear); Bacteria Urine Automated 4+ (Negative); Bilirubin Urine Negative (Negative); Blood Urine 2+ (Negative); Color Urine Yellow; Glucose Urine UA Negative (Negative); Ketones Urine Negative (Negative); Leukocyte Esterase Urine 3+ (Negative); Nitrite Urine Positive (Negative); Specific Gravity Urine 1.011 (1.000-1.030); Urobilinogen Urine Negative (Negative); WBC Urine Automated >30 /hpf (0-5); pH Urine 7.5 (4.5-7.5)
--- NOTE | 2019-05-06 06:34 | XRay Report ---
XR chest 1V portable CLINICAL HISTORY: Dyspnea COMPARISON STUDY: 08/03/2018 FINDINGS: The heart is enlarged. There is diffuse elevation of interstitium, likely secondary to mild congestive failure/fluid overload. There is no lobar consolidation. There are no large pleural effus ions. There is minor blunting of the right lateral costophrenic angle and a small right pleural effus ion is suspected[ IMPRESSION: Cardiomegaly and radiographic evidence of congestive failure/fluid overload. Electronically signed by: Kye Tenorio M.D. 05/06/2019 6:33 AM
[2019-05-06 06:44] LABS: Protein Urine Trace (Negative)
[2019-05-06 06:45] LABS: Sulfosalicylic Acid Urine Positive (Negative)
[2019-05-06 06:47] LABS: Cast Urine Automated 0 /lpf (0-5)
[2019-05-06 06:48] LABS: Epithelial Cell Urine Auto 20-30 /lpf (0-5)
--- NOTE | 2019-05-06 07:05 | Emergency Department Note ---
Entered by Vern Mancilla acting as a scribe for History of Present Illness General Chief complaint: Shortness of Breath/Dyspnea Stated complaint: breathing difficulty Time Seen by Provider: 05/06/19 05:13 Source: patient Limitations: other (dementia) History of Present Illness Onset (ago): day(s) (this morning) Location: chest Pain Consistency: + constant Quality: + other (SOB) Associated symptoms: + other (Positive for a cough.) The patient is an 84 year old female who presents to the emergency department with complaints of constant SOB beginning this morning. The patient states that she started feeling sick this morning. She notes that she developed a cough and SOB at that time. HPI limited secondary to dementia. Home Medications Home Medications Medication Instructions Recorded Confirmed Type Calcium 600 + D(3) 1 cap PO BID 08/02/18 05/06/19 History albuterol sulfate 2.5 mg INHALATION QID PRN 08/02/18 05/06/19 History alendronate 70 mg PO WK 08/02/18 05/06/19 History atorvastatin 10 mg PO HS 08/02/18 05/06/19 History bisacodyl [Dulcolax (bisacodyl)] 10 mg [place] DAILY PRN 08/02/18 05/06/19 History cholecalciferol (vitamin D3) 2,000 unit PO QAM 08/02/18 05/06/19 History [Vitamin D3] cyanocobalamin (vitamin B-12) 1,000 mcg IM MONTHLY 08/02/18 05/06/19 History docusate sodium [Colace] 100 mg PO BID 08/02/18 05/06/19 History escitalopram oxalate 10 mg PO QAM 08/02/18 05/06/19 History levothyroxine 50 mcg PO DAILYBB 08/02/18 05/06/19 History omeprazole 20 mg PO DAILYBB 08/02/18 05/06/19 History Breo Ellipta 1 inh INHALATION HS 05/06/19 05/06/19 History Eliquis 5 mg PO BID 05/06/19 05/06/19 History acetaminophen [Tylenol] 650 mg PO Q6H PRN MDD 3 GRAMS/24 05/06/19 05/06/19 History HOURS furosemide [Lasix] 20 mg PO QAM 05/06/19 05/06/19 History midodrine 2.5 mg PO TID 05/06/19 05/06/19 History sennosides [senna] 8.6 mg PO QAM 05/06/19 05/06/19 History cefuroxime axetil 250 mg PO BID #8 tab 05/09/19 Rx metoprolol succinate 50 mg PO DAILY #30 tab 05/09/19 Rx Allergies Allergy/AdvReac Type Severity Reaction Status Date / Time No Known Allergies Allergy Verified 05/06/19 05:53 Past Med/Surg History Medical History A-fib (Chronic) Cardiomyopathy Chronic low back pain (Chronic) Colon cancer (Chronic) COPD (chronic obstructive pulmonary disease) (Chronic) COPD (chronic obstructive pulmonary disease) (Chronic) Dementia (Chronic) Depression (Chronic) Dysphagia (Chronic) GERD (gastroesophageal reflux disease) (Chronic) History of colon cancer (Resolved) HLD (hyperlipidemia) (Chronic) HTN (hypertension) (Chronic) Hypothyroidism (Chronic) Systolic CHF, acute Vitamin B12 deficiency (Chronic) Surgical History History of cholecystectomy (Resolved) History of hysterectomy (Resolved) Social History Preferred Language: Lao Communication Ability: Unable Type Proof Reproducer Required: No Beliefs That Will Affect Care: None marital status: / Current Living Situation: Group Home Other Information That Helps Us Care for You: No Feels Safe at Home: Yes Safety Concerns: Feels Safe At This Time Smoking Status: Unknown if ever smoked Hx Alcohol Use: No Hx Substance Use: No Review of Systems ROS limited secondary to dementia. Physical Exam Vital Signs Vital Signs - 24 hr 05/06/19 05:13 05/06/19 05:22 05/06/19 05:31 Temperature 36.9 C Temperature Source Oral Pulse Rate 127 H Pulse Rate [Finger] 131 H Respiratory Rate 18 18 Blood Pressure 120/76 Blood Pressure [Right Arm] 145/75 H Blood Pressure Mean 90 Blood Pressure Mean [Right Arm] 98 Pulse Oximetry 88 L 93 94 Oxygen Delivery Method Room Air Nasal Cannula Nasal Cannula Oxygen Flow Rate 4 4 Sepsis Recent Fever Within 48 Hours No Sepsis Action Taken by Nursing No Action Required 05/06/19 05:32 05/06/19 06:03 05/06/19 06:44 Temperature Temperature Source Pulse Rate 131 H Pulse Rate [Finger] 91 H 83 Respiratory Rate 18 18 Blood Pressure 145/75 H Blood Pressure [Right Arm] 117/82 121/68 Blood Pressure Mean Blood Pressure Mean [Right Arm] 93 85 Pulse Oximetry 96 97 Oxygen Delivery Method Nasal Cannula Nasal Cannula Oxygen Flow Rate 4 4 Sepsis Recent Fever Within 48 Hours Sepsis Action Taken by Nursing Vital signs reviewed. General: Chronically ill, elderly, appearing female, in no significant distress. HEENT: No scleral icterus, PERRLA, neck supple. Atraumatic. Cardiovascular: Rapid irregular heart, no extra sounds. Pulmonary: Normal work of breathing. Coarse breath sounds bilaterally, crackles. Abdomen: Soft, nontender, nondistended, positive bowel sounds. Musculoskeletal: Atraumatic, no peripheral edema. Neurologic: Patient awake, alert, able to state location but does not respond to commands. Skin: Warm, dry, no rash Course Course 0517: The patient was evaluated in room B9. A complete history and physical exam was performed. Administered Medications Discontinued Medications Apixaban (Eliquis) 5 mg PO BID [facility] Stop: 06/05/19 10:44 Last Admin: 05/09/19 08:09 Dose: 5 mg Documented by: [id number] Admin: 05/08/19 20:39 Dose: 5 mg Documented by: [id number] Admin: 05/08/19 08:39 Dose: 5 mg Documented by: [id number] Admin: 05/07/19 21:02 Dose: 5 mg Documented by: [id number] Admin: 05/07/19 08:00 Dose: 5 mg Documented by: [id number] Admin: 05/06/19 20:17 Dose: 5 mg Documented by: [id number] Admin: 05/06/19 11:39 Dose: 5 mg Documented by: [id number] Atorvastatin Calcium (Lipitor) 10 mg PO HS [facility] Stop: 06/05/19 20:59 Last Admin: 05/08/19 20:39 Dose: 10 mg Documented by: [id number] Admin: 05/07/19 21:02 Dose: 10 mg Documented by: [id number] Admin: 05/06/19 20:20 Dose: 10 mg Documented by: [id number] Budesonide/Formoterol Fumarate (Symbicort 160mcg/4.5mcg) 2 puffs INH BID [facility] Stop: 06/05/19 20:59 Last Admin: 05/09/19 08:09 Dose: 2 puffs Documented by: [id number] Admin: 05/08/19 20:41 Dose: 2 puffs Documented by: [id number] Admin: 05/08/19 08:38 Dose: 2 puffs Documented by: [id number] Admin: 05/07/19 21:03 Dose: 2 puffs Documented by: [id number] Admin: 05/07/19 08:00 Dose: 2 puffs Documented by: [id number] Admin: 05/06/19 20:20 Dose: 2 puffs Documented by: [id number] Docusate Sodium (Colace) 100 mg PO BID [facility] Stop: 06/05/19 10:44 Last Admin: 05/09/19 09:51 Dose: 100 mg Documented by: [id number] Admin: 05/08/19 20:44 Dose: 100 mg Documented by: [id number] Admin: 05/08/19 08:39 Dose: 100 mg Documented by: [id number] Admin: 05/07/19 21:02 Dose: 100 mg Documented by: [id number] Admin: 05/07/19 08:00 Dose: 100 mg Documented by: [id number] Admin: 05/06/19 20:16 Dose: Not Given Documented by: [id number] Admin: 05/06/19 11:39 Dose: Not Given Documented by: [id number] Escitalopram Oxalate (Lexapro Tab) 10 mg PO QAM [facility] Stop: 06/05/19 10:20 Last Admin: 05/09/19 08:08 Dose: 10 mg Documented by: [id number] Admin: 05/08/19 08:38 Dose: 10 mg Documented by: [id number] Admin: 05/07/19 07:59 Dose: 10 mg Documented by: [id number] Admin: 05/06/19 11:39 Dose: 10 mg Documented by: [id number] Furosemide (Lasix) 40 mg IV NOW STA Stop: 05/06/19 05:21 Last Admin: 05/06/19 05:32 Dose: 40 mg Documented by: [id number] Furosemide (Lasix) 20 mg PO QAM [facility] Stop: 06/08/19 08:59 Last Admin: 05/09/19 08:08 Dose: 20 mg Documented by: [id number] Piperacillin Sod/Tazobactam Sod (Zosyn) 4.5 gm in 120 mls @ 240 mls/hr IV NOW ONE Stop: 05/06/19 06:49 Last Infusion: 05/06/19 07:32 Dose: 0 mls/hr Documented by: [id number] Admin: 05/06/19 06:41 Dose: 240 mls/hr Documented by: [id number] Vancomycin HCl 1,750 mg/ (Sodium Chloride) 535 mls @ 200 mls/hr IV NOW ONE Stop: 05/06/19 09:07 Last Infusion: 05/06/19 12:27 Dose: 0 mls/hr Documented by: [id number] Admin: 05/06/19 09:10 Dose: 200 mls/hr Documented by: [id number] Magnesium Sulfate/Dextrose (Magnesium Sulfate / D5w) 1 gm in 100 mls @ 100 mls/hr IV ONE ONE Stop: 05/06/19 11:29 Last Infusion: 05/06/19 13:10 Dose: 0 mls/hr Documented by: [id number] Admin: 05/06/19 12:09 Dose: 100 mls/hr Documented by: [id number] Furosemide 20 mg/ Syringe 2 mls @ 4 mls/min IV BID17 [facility] Stop: 06/05/19 16:59 Last Admin: 05/08/19 08:38 Dose: 4 mls/min Documented by: [id number] Admin: 05/07/19 16:28 Dose: 4 mls/min Documented by: [id number] Admin: 05/07/19 07:59 Dose: 4 mls/min Documented by: [id number] Admin: 05/06/19 17:29 Dose: 4 mls/min Documented by: [id number] Piperacillin Sod/Tazobactam (Sod 3.375 gm/ Dextrose) 115 mls @ 28.75 mls/hr IV Q8H [facility]; Protocol Stop: 05/16/19 11:59 Last Infusion: 05/07/19 08:43 Dose: 0 mls/hr Documented by: [id number] Admin: 05/07/19 04:12 Dose: 28.8 mls/hr Documented by: [id number] Infusion: 05/07/19 00:19 Dose: 0 mls/hr Documented by: [id number] Admin: 05/06/19 20:12 Dose: 28.8 mls/hr Documented by: [id number] Infusion: 05/06/19 17:20 Dose: 0 mls/hr Documented by: [id number] Admin: 05/06/19 13:10 Dose: 28.8 mls/hr Documented by: [id number] Methylprednisolone 20 mg/ (Syringe) 0.32 mls @ 1.5 mls/min IV NOW STA Stop: 05/07/19 02:09 Last Admin: 05/07/19 03:06 Dose: 1.5 mls/min Documented by: [id number] Magnesium Sulfate/Dextrose (Magnesium Sulfate / D5w) 1 gm in 100 mls @ 100 mls/hr IV ONE ONE Stop: 05/07/19 03:14 Last Infusion: 05/07/19 04:20 Dose: 0 mls/hr Documented by: [id number] Admin: 05/07/19 03:06 Dose: 100 mls/hr Documented by: [id number] Cefepime HCl 1,000 mg/ Syringe 11.3 mls @ 5.5 mls/min IV Q24H [facility]; Protocol Stop: 05/16/19 11:59 Last Admin: 05/09/19 12:01 Dose: 5.5 mls/min Documented by: [id number] Admin: 05/08/19 12:33 Dose: 5.5 mls/min Documented by: [id number] Admin: 05/07/19 12:12 Dose: 5.5 mls/min Documented by: [id number] Ipratropium Leonard (Atrovent 0.02% 0.5mg/2.5ml) 0.5 mg INH Q4R [facility] Stop: 06/06/19 02:59 Last Admin: 05/08/19 07:07 Dose: 0.5 mg Documented by: [id number] Admin: 05/08/19 04:07 Dose: Not Given Documented by: [id number] Admin: 05/07/19 23:09 Dose: 0.5 mg Documented by: [id number] Admin: 05/07/19 19:25 Dose: 0.5 mg Documented by: [id number] Admin: 05/07/19 15:09 Dose: 0.5 mg Documented by: [id number] Admin: 05/07/19 11:18 Dose: 0.5 mg Documented by: [id number] Admin: 05/07/19 07:10 Dose: 0.5 mg Documented by: [id number] Admin: 05/07/19 03:03 Dose: Not Given Documented by: [id number] Levalbuterol HCl (Xopenex 0.63 Mg/3 Ml Neb) 0.63 mg NEB Q6R [facility] Stop: 06/05/19 12:59 Last Admin: 05/07/19 01:44 Dose: 0.63 mg Documented by: [id number] Admin: 05/06/19 19:26 Dose: 0.63 mg Documented by: [id number] Admin: 05/06/19 14:27 Dose: 0.63 mg Documented by: [id number] Levalbuterol HCl (Xopenex 1.25mg/0.5ml Neb) 1.25 mg INH Q4R [facility] Stop: 06/06/19 02:59 Last Admin: 05/08/19 07:07 Dose: 1.25 mg Documented by: [id number] Admin: 05/08/19 04:08 Dose: Not Given Documented by: [id number] Admin: 05/07/19 23:09 Dose: 1.25 mg Documented by: [id number] Admin: 05/07/19 19:26 Dose: 1.25 mg Documented by: [id number] Admin: 05/07/19 15:09 Dose: 1.25 mg Documented by: [id number] Admin: 05/07/19 11:18 Dose: 1.25 mg Documented by: [id number] Admin: 05/07/19 07:10 Dose: 1.25 mg Documented by: [id number] Admin: 05/07/19 03:04 Dose: Not Given Documented by: [id number] Levothyroxine Sodium (Synthroid) 50 mcg PO DAILYBB [facility] Stop: 06/06/19 06:29 Last Admin: 05/09/19 06:24 Dose: 50 mcg Documented by: [id number] Admin: 05/08/19 06:16 Dose: 50 mcg Documented by: [id number] Admin: 05/07/19 05:45 Dose: 50 mcg Documented by: [id number] Metoprolol Tartrate (Lopressor) 5 mg IV Q5M PRN PRN Reason: Tachycardia Stop: 06/05/19 05:19 Last Admin: 05/06/19 05:32 Dose: 5 mg Documented by: [id number] Metoprolol Tartrate (Lopressor) 25 mg PO BID [facility] Stop: 05/09/19 22:00 Last Admin: 05/09/19 08:09 Dose: 25 mg Documented by: [id number] Admin: 05/08/19 20:39 Dose: 25 mg Documented by: [id number] Admin: 05/08/19 08:38 Dose: 25 mg Documented by: [id number] Admin: 05/07/19 21:04 Dose: 25 mg Documented by: [id number] Admin: 05/07/19 08:00 Dose: 25 mg Documented by: [id number] Admin: 05/06/19 20:19 Dose: 25 mg Documented by: [id number] Admin: 05/06/19 11:41 Dose: 25 mg Documented by: [id number] Midodrine (Proamatine) 2.5 mg PO TID@0700,1300,1700 [facility] Stop: 06/05/19 10:44 Last Admin: 05/09/19 12:00 Dose: 2.5 mg Documented by: [id number] Admin: 05/09/19 06:24 Dose: 2.5 mg Documented by: [id number] Admin: 05/08/19 17:23 Dose: 2.5 mg Documented by: [id number] Admin: 05/08/19 12:34 Dose: 2.5 mg Documented by: [id number] Admin: 05/08/19 08:39 Dose: 2.5 mg Documented by: [id number] Admin: 05/07/19 16:28 Dose: 2.5 mg Documented by: [id number] Admin: 05/07/19 12:12 Dose: 2.5 mg Documented by: [id number] Admin: 05/07/19 08:00 Dose: 2.5 mg Documented by: [id number] Admin: 05/06/19 17:29 Dose: 2.5 mg Documented by: [id number] Admin: 05/06/19 12:09 Dose: Not Given Documented by: [id number] Admin: 05/06/19 11:40 Dose: 2.5 mg Documented by: [id number] Miscellaneous (Levalbuterol/Ipratropium 1.25mg) 1 ea NEB Q4H [facility] Stop: 06/06/19 01:59 Last Admin: 05/07/19 01:59 Dose: Not Given Documented by: [id number] Multivitamins/Minerals (Caltrate Plus) 1 tab PO BID [facility] Stop: 06/05/19 10:44 Last Admin: 05/09/19 08:09 Dose: 1 tab Documented by: [id number] Admin: 05/08/19 20:38 Dose: 1 tab Documented by: [id number] Admin: 05/08/19 08:39 Dose: 1 tab Documented by: [id number] Admin: 05/07/19 21:01 Dose: 1 tab Documented by: [id number] Admin: 05/07/19 08:00 Dose: 1 tab Documented by: [id number] Admin: 05/06/19 20:17 Dose: 1 tab Documented by: [id number] Admin: 05/06/19 11:40 Dose: 1 tab Documented by: [id number] Pantoprazole Sodium (Protonix) 40 mg PO DAILYBB [facility] Stop: 06/06/19 06:29 Last Admin: 05/09/19 06:24 Dose: 40 mg Documented by: [id number] Admin: 05/08/19 06:16 Dose: 40 mg Documented by: [id number] Admin: 05/07/19 05:45 Dose: 40 mg Documented by: [id number] Potassium Chloride (Kelly Ciel Elix) 40 meq PO 0900 ONE Stop: 05/07/19 09:01 Last Admin: 05/07/19 09:16 Dose: 40 meq Documented by: [id number] Potassium Chloride (Klor-Con M20) 40 meq PO NOW STA Stop: 05/08/19 09:41 Last Admin: 05/08/19 10:24 Dose: 40 meq Documented by: [id number] Fluticasone/Salmeterol (Advair Diskus 500/50) 1 puffs INH BID [facility] Stop: 06/05/19 10:59 Last Admin: 05/09/19 08:09 Dose: 1 puffs Documented by: [id number] Admin: 05/08/19 20:37 Dose: 1 puffs Documented by: [id number] Admin: 05/08/19 08:38 Dose: 1 puffs Documented by: [id number] Admin: 05/07/19 21:01 Dose: 1 puffs Documented by: [id number] Admin: 05/07/19 08:00 Dose: 1 puffs Documented by: [id number] Admin: 05/06/19 20:20 Dose: 1 puffs Documented by: [id number] Admin: 05/06/19 11:41 Dose: 1 puffs Documented by: [id number] Vitamin D (Vitamin D3) [facility] [place] [facility] 06/05/19 10:44 Last Admin: 05/09/19 08:09 Dose: 2,000 units Documented by: [id number] Admin: 05/08/19 08:38 Dose: 2,000 units Documented by: [id number] Admin: 05/07/19 07:59 Dose: 2,000 units Documented by: [id number] Admin: 05/06/19 11:40 Dose: 2,000 units Documented by: [id number] Critical Care Time Critical Care Time: Yes The high probability of a clinically significant, sudden or life threatening deterioration which required my full and direct attention, intervention and personal management. The aggregate critical care time was 35 minutes. This time is in addition to time spent performing reported procedures but includes the f ollowing: [x] Data Review and interpretation [x] Patient assessment and monitoring of vital signs [x] Documentation [x] Medication orders and management Medical Decision Making Differential Diagnosis Differential diagnosis: Etiologies such as infections, reactive airway disease, COPD, pneumonia, pleural effusion, pulmonary edema, ARDS, pneumothorax, CHF, cardiac ischemia, cardiac tamponade, dysrhythmia, anemia, pulmonary embolism, musculoskeletal, gastrointestinal process, as well as others were entertained. Medical Records Attestation: I reviewed the patient's medical records. Home Medications Current Medication List: was personally reviewed by me Laboratory Data Attestation: I reviewed the patient's lab results. Result diagrams: 05/09/19 05:24 05/09/19 05:24 Lab Results 05/06/19 05/06/19 05/06/19 Range/Units 05:35 05:35 05:35 WBC 13.13 H (4.8-10.8) K/uL RBC 3.81 L (4.2-5.4) M/uL Hgb 10.8 L (12.0-16.0) g/dL Hct 33.5 L (37-47) % MCV 87.9 (80-100) fL MCH 28.3 (25-34) pg MCHC 32.2 (32-36) g/dL RDW Std Deviation 57.3 H (36.4-46.3) fL RDW Coeff of Nidhi 17.9 H (11.5-14.5) % Plt Count 284 (130-400) K/uL MPV 10.3 (7.4-10.4) fL Immature Gran % (Auto) 0.3 % Neut % (Auto) 83.7 % Lymph % (Auto) 7.8 % [place] % (Auto) 7.6 % Eos % (Auto) 0.4 % Baso % (Auto) 0.2 % Immature Gran # (Auto) 0.04 H (0.00-0.02) K/uL Neut # (Auto) 10.99 H (1.4-6.5) K/uL Lymph # (Auto) 1.03 L (1.2-3.4) K/uL [place] # (Auto) 1.00 H (0.11-0.59) K/uL Eos # (Auto) 0.05 (0-0.5) K/uL Baso # (Auto) 0.02 (0-0.2) K/uL PT 12.0 (9.0-12.0) Seconds INR 1.2 H (0.9-1.1) APTT 26.3 (21.0-31.0) Seconds PTT Ratio 1.0 Sodium 136 (136-145) mmol/L Potassium 4.1 (3.5-5.1) mmol/L Chloride 103 (98-107) mmol/L Carbon Dioxide 26 (21-32) mmol/L Anion Gap 7.0 (3-11) BUN 23 H (7-18) mg/dl Creatinine 1.11 (0.6-1.2) mg/dl Est Cr Clr Drug Dosing 40.4 ml/min Est GFR ( Amer) 52.8 Est GFR (Non-Af Amer) 45.6 BUN/Creatinine Ratio 20.4 H (10-20) Glucose 123 H (70-99) mg/dl Lactate (0.4-2.0) mmol/L Calcium 9.6 (8.5-10.1) mg/dl Magnesium 1.7 L (1.8-2.4) mg/dl Total Bilirubin 0.5 (0.2-1) mg/dl AST 20 (15-37) U/L ALT 15 (12-78) U/L Alkaline Phosphatase 79 (45-117) U/L Troponin I 0.025 (0-0.045) ng/ml Total Protein 8.8 H (6.4-8.2) gm/dl Albumin 3.0 L (3.4-5.0) gm/dl Globulin 5.8 H (2.5-4.0) gm/dl Albumin/Globulin Ratio 0.5 L (0.9-2) Urine Color Urine Appearance (Clear) Urine pH (4.5-7.5) Ur Specific [place] (1.000-1.030) Urine Protein (Negative) Urine Glucose (UA) (Negative) Urine Ketones (Negative) Urine Blood (Negative) Urine Nitrite (Negative) Urine Bilirubin (Negative) Urine Urobilinogen (Negative) Ur Leukocyte Esterase (Negative) Urine WBC (Auto) (0-5) /hpf Urine RBC (Auto) (0-4) /hpf U Hyaline Cast (Auto) (0-5) /lpf U Epithel Cells (Auto) (0-5) /lpf Urine Bacteria (Auto) (Negative) Urine Yeast 05/06/19 05/06/19 Range/Units 05:35 06:01 WBC (4.8-10.8) K/uL RBC (4.2-5.4) M/uL Hgb (12.0-16.0) g/dL Hct (37-47) % MCV (80-100) fL MCH (25-34) pg MCHC (32-36) g/dL RDW Std Deviation (36.4-46.3) fL RDW Coeff of Nidhi (11.5-14.5) % Plt Count (130-400) K/uL MPV (7.4-10.4) fL Immature Gran % (Auto) % Neut % (Auto) % Lymph % (Auto) % [place] % (Auto) % Eos % (Auto) % Baso % (Auto) % Immature Gran # (Auto) (0.00-0.02) K/uL Neut # (Auto) (1.4-6.5) K/uL Lymph # (Auto) (1.2-3.4) K/uL [place] # (Auto) (0.11-0.59) K/uL Eos # (Auto) (0-0.5) K/uL Baso # (Auto) (0-0.2) K/uL PT (9.0-12.0) Seconds INR (0.9-1.1) APTT (21.0-31.0) Seconds PTT Ratio Sodium (136-145) mmol/L Potassium (3.5-5.1) mmol/L Chloride (98-107) mmol/L Carbon Dioxide (21-32) mmol/L Anion Gap (3-11) BUN (7-18) mg/dl Creatinine (0.6-1.2) mg/dl Est Cr Clr Drug Dosing ml/min Est GFR ( Amer) Est GFR (Non-Af Amer) BUN/Creatinine Ratio (10-20) Glucose (70-99) mg/dl Lactate 2.5 H* (0.4-2.0) mmol/L Calcium (8.5-10.1) mg/dl Magnesium (1.8-2.4) mg/dl Total Bilirubin (0.2-1) mg/dl AST (15-37) U/L ALT (12-78) U/L Alkaline Phosphatase (45-117) U/L Troponin I (0-0.045) ng/ml Total Protein (6.4-8.2) gm/dl Albumin (3.4-5.0) gm/dl Globulin (2.5-4.0) gm/dl Albumin/Globulin Ratio (0.9-2) Urine Color Yellow Urine Appearance Turbid A (Clear) Urine pH 7.5 (4.5-7.5) Ur Specific [place] 1.011 (1.000-1.030) Urine Protein Trace H (Negative) Urine Glucose (UA) Negative (Negative) Urine Ketones Negative (Negative) Urine Blood 2+ H (Negative) Urine Nitrite Positive A (Negative) Urine Bilirubin Negative (Negative) Urine Urobilinogen Negative (Negative) Ur Leukocyte Esterase 3+ H (Negative) Urine WBC (Auto) >30 H (0-5) /hpf Urine RBC (Auto) 5-10 H (0-4) /hpf U Hyaline Cast (Auto) 0 (0-5) /lpf U Epithel Cells (Auto) 20-30 H (0-5) /lpf Urine Bacteria (Auto) 4+ H (Negative) Urine Yeast Not Reportable Imaging Data Attestation: I personally reviewed and interpreted this imaging study as follows: My Impression: CHEST X-RAY: Cardiomegaly. CHF. Mild tracheal deviation versus positioning. ECG Data Attestation: I personally reviewed and interpreted this ECG as follows: Indication: + SOB/dyspnea Rate (beats per minute): 120 Rhythm: + atrial flutter (with variable AV block) ECG [place]: + Left axis deviation ECG ST segments: no ST depression and no ST elevation Additional Comments: Previous septal infarct, prolonged QTC 494. Blood Pressure Blood Pressure Findings: Normal blood pressure Blood Pressure Disposition: did not require urgent referral MDM Narrative This pt was evaluated and appeared to be in no distress. IV access was obtained and lab work was drawn. PT was placed on the threat monitoring analyst. CXR confirms CHF. Pt is noted to be in atrial flutter at 120 bpm on tele and confirmed on EK G. Pt was given lasix 40 mg IV and metoprolol 5 mg IV. Pt remained stable. Lab work reveals a negative trop. Lactate is elevated at 2.5. UA is positive. IV vancomycin and zosyn were initiated, but no IVF given as pt is in need of diuresis from CHF, rapid atrial flutter. VS remained stable otherwise. Case was d/w the hospitalist service for further management. Impression & Plan CHF (congestive heart failure), UTI (urinary tract infection), Elevated lactic acid level, Atrial flutter with rapid ventricular response Discharge Plan Visit Data *Final* Discharge Date/Time: 05/06/19 09:38 Chief Complaint: Shortness of Breath/Dyspnea Stated Complaint: breathing difficulty ED Provider: Mague Saenz Discharge Problem: CHF (congestive heart failure), UTI (urinary tract infection), Elevated lactic acid level, Atrial flutter with rapid ventricular response Patient Disposition: Admitted As Inpatient Discharge Instructions Interventions: ED Discharge Assessment Last Done: 05/06/19 09:38 Discharge Problem: CHF (congestive heart failure) Qualifiers: Heart failure type: unspecified Heart failure chronicity: acute on chronic Qualified Code(s): I50.9 - Heart failure, unspecified UTI (urinary tract infection) Qualifiers: Urinary tract infection type: acute cystitis Hematuria presence: without h ematuria Qualified Code(s): N30.00 - Acute cystitis without hematuria The scribe's documentation has been prepared under my direction and personally reviewed by me in its entirety. I confirm that the note above accurately reflects all work, treatment, procedures, and medical decision making performed by me.
--- NOTE | 2019-05-06 09:16 | History & Physical Report ---
Date of Service May 06, 2019 Assessment & Plan (1) Fluid overload: Pt is 84 y/o F with PMH hypothyroidism, HLD, COPD, chronic a-fib on Eliquis, GERD, dysphagia, dementia, vitamin B12 deficiency, chronic low back pain, depression, colon CA s/p sigmoidectomy presented to ER from [facility] for hypoxia. Staff report that this morning patient was not talking and more quiet than usual. It was noticed that she had audible wheezing, increased rales and O2 sat 80% on room air. Questionable facial droop In ER pt with hypoxia 88% on RA improves to 97% on 4L oxygen NC. Initial pulse 127 Cardiomegaly and radiographic evidence of congestive failure/fluid overload. -In ER given Lasix 40 mg IV -Hold home oral Lasix -Lasix 20 mg IV twice daily -Monitor I's and O's, daily weights, low sodium diet -Flutter valve -Echo -Cardiology consult -Monitor CBC, BMP (2) A-fib: H/O A-fib on Eliquis Initial EKG in ER aflutter RVR, was given metoprolol tartrate IV with HR down to 80's up to low 100's Appears to be a-fib on monitor -Hold home metoprolol succinate and change to metoprolol tartrate 25mg BID -Lopressor 2.5mg Q6H prn HR>110 -Continue Eliquis -Cardiology consult (3) UTI (urinary tract infection): UA consistent with UTI -Urine culture pending -Zosyn (4) Elevated lactic acid level: Lactic acid: 2.5. In ER afebrile, Initial P: 127, BP: 120/76, 88% on RA up to 97% on 4L NC UA consistent with UTI. WBC: 13, negative influenza swab -Trend lactate -In ER given zosyn, vancomycin -Zosyn -Blood cultures pending, urine culture pending (5) Hypomagnesemia: Magnesium: 1.7 -Replace and monitor (6) Metabolic encephalopathy: Pt with increased altered mental status today. CT head: no acute changes UA consistent with probable UTI -Treat UTI -Monitor (7) COPD (chronic obstructive pulmonary disease): -Continue home inhaler -Hold albuterol and change to xopenex nebs with tachycardia (8) Hypothyroidism: TSH: 3.8 -Continue levothyroxine (9) GERD (gastroesophageal reflux disease): -Continue PPI (10) Depression: -Continue Lexapro DVT Prophylaxis -On Eliquis No Intubation, CPR, defibrillation ok. As per POLST form and also Discussed with pt's daughter Follows with Dr Campa at [facility] for routine care Pt was seen and care coordinated with Dr Elkins. See addendum History of Present Illness Chief Complaint: Hypoxia Primary Care Provider: [facility] Pt is 84 y/o F with PMH hypothyroidism, HLD, COPD, chronic a-fib on Eliquis, GERD, dysphagia, dementia, vitamin B12 deficiency, chronic low back pain, depression, colon CA s/p sigmoidectomy presented to ER from [facility] for hypoxia. History obtained from [facility] staff secondary to pt's current mental status. Staff report that this morning patient was not talking and more quiet than usual. It was noticed that she had audible wheezing, increased rales and O2 sat 80% on room air. Also reported patient elevated heart rate of 115- 135. Staff reports that patient appeared more weak and was questionable left sided facial droop. Upon ER arrival pt noted to be hypoxic which improved with oxygen via NC. Unable to further obtain history or ROS secondary to pt not participating/interacting. Unable to obtain FH Attempted to call patient's daughter, Kathleen Cowan however no answer. Allergies Allergy/AdvReac Type Severity Reaction Status Date / Time No Known Allergies Allergy Verified 05/06/19 05:53 Home Medications Home Medications Medication Instructions Recorded Confirmed Type Calcium 600 + D(3) 1 cap PO BID 08/02/18 05/06/19 History albuterol sulfate 2.5 mg INHALATION QID PRN 08/02/18 05/06/19 History alendronate 70 mg PO WK 08/02/18 05/06/19 History atorvastatin 10 mg PO HS 08/02/18 05/06/19 History bisacodyl [Dulcolax (bisacodyl)] 10 mg [place] DAILY PRN 08/02/18 05/06/19 History cholecalciferol (vitamin D3) 2,000 unit PO QAM 08/02/18 05/06/19 History [Vitamin D3] cyanocobalamin (vitamin B-12) 1,000 mcg IM MONTHLY 08/02/18 05/06/19 History docusate sodium [Colace] 100 mg PO BID 08/02/18 05/06/19 History escitalopram oxalate 10 mg PO QAM 08/02/18 05/06/19 History levothyroxine 50 mcg PO DAILYBB 08/02/18 05/06/19 History omeprazole 20 mg PO DAILYBB 08/02/18 05/06/19 History acetaminophen [Tylenol] 650 mg PO BID MDD 3 GRAMS/24 HOURS 05/06/19 05/06/19 History acetaminophen [Tylenol] 650 mg PO Q6H PRN MDD 3 GRAMS/24 05/06/19 05/06/19 History HOURS apixaban [Eliquis] 5 mg PO BID 05/06/19 05/06/19 History fluticasone furoate-vilanterol 1 inh INHALATION HS 05/06/19 05/06/19 History [Breo Ellipta] furosemide [Lasix] 20 mg PO QAM 05/06/19 05/06/19 History metoprolol succinate 12.5 mg PO BID 05/06/19 05/06/19 History midodrine 2.5 mg PO TID 05/06/19 05/06/19 History sennosides [senna] 8.6 mg PO QAM 05/06/19 05/06/19 History Past Med/Surg History Medical History A-fib (Chronic) Cardiomyopathy Chronic low back pain (Chronic) Colon cancer (Chronic) COPD (chronic obstructive pulmonary disease) (Chronic) COPD (chronic obstructive pulmonary disease) (Chronic) Dementia (Chronic) Depression (Chronic) Dysphagia (Chronic) GERD (gastroesophageal reflux disease) (Chronic) History of colon cancer (Resolved) HLD (hyperlipidemia) (Chronic) HTN (hypertension) (Chronic) Hypothyroidism (Chronic) Systolic CHF, acute Vitamin B12 deficiency (Chronic) Surgical History History of cholecystectomy (Resolved) History of hysterectomy (Resolved) Social History Preferred Language: Venezuelan Communication Ability: Effective Microphone Operator Required: No Beliefs That Will Affect Care: None marital status: / Current Living Situation: Retirement Other Information That Helps Us Care for You: No Feels Safe at Home: Yes Safety Concerns: Feels Safe At This Time Smoking Status: Unknown if ever smoked Hx Alcohol Use: No Hx Substance Use: No Review of Systems Review of Systems: Unobtainable due to cognitive status Physical Exam Physical Exam: General: overweight elderly female with no acute distress on oxygen via NC Head: normocephalic, atraumatic Eyes: PERRL, EOM's intact, conjunctiva non-injected, anicteric ENT: normal inspection external ears, nose, mucous membranes moist Neck: supple, trachea midline Lungs: +rales throughout, R:18, 97% on 4L oxygen via NC CV: irregularly irregular, rate: 118, no murmur, 1+ pretibial edema Abd: normal BS, soft, no apparent tenderness to palpation Ext: no cyanosis, no apparent calf tenderness Neuro: Alert, not talking. very limited exam secondary to pt not participating. no facial droop noted Skin: warm, dry Results & Data Vital Signs (Past 12 Hours) Vital Signs Temp Pulse Pulse Resp BP BP Pulse Ox 05/06/19 09:10 108 H 22 102/73 97 05/06/19 07:32 89 16 111/66 93 05/06/19 06:44 83 18 121/68 97 05/06/19 06:03 91 H 18 117/82 96 05/06/19 05:32 131 H 145/75 H 05/06/19 05:31 131 H 18 145/75 H 94 05/06/19 05:22 93 05/06/19 05:13 36.9 C 127 H 18 120/76 88 L Laboratory Results Short CBC 05/06/19 Range/Units 05:35 WBC 13.13 H (4.8-10.8) K/uL Hgb 10.8 L (12.0-16.0) g/dL Hct 33.5 L (37-47) % Plt Count 284 (130-400) K/uL BMP 05/06/19 05:35 Sodium 136 Potassium 4.1 Chloride 103 Carbon Dioxide 26 BUN 23 H Creatinine 1.11 Glucose 123 H Calcium 9.6 Cardiac Enzymes 05/06/19 Range/Units 05:35 Troponin I 0.025 (0-0.045) ng/ml Liver Function 05/06/19 Range/Units 05:35 Total Bilirubin 0.5 (0.2-1) mg/dl AST 20 (15-37) U/L ALT 15 (12-78) U/L Alkaline Phosphatase 79 (45-117) U/L Albumin 3.0 L (3.4-5.0) gm/dl Urine 05/06/19 Range/Units 06:01 Urine Color Yellow Urine Appearance Turbid A (Clear) Urine pH 7.5 (4.5-7.5) Ur Specific [place] 1.011 (1.000-1.030) Urine Protein Trace H (Negative) Urine Glucose (UA) Negative (Negative) Diagnostic Findings CXR: IMPRESSION: Cardiomegaly and radiographic evidence of congestive failure/fluid overload. CT HEAD: IMPRESSION: No acute intracranial abnormality. Supervising Physician Co-Signing Physician Notes Patient is an 84-year-old female with multiple comorbidities presents with history of shortness of breath and hypoxia associated with change in mental status. Patient mostly nonverbal. History is limited secondary to patient's mental status. Please review HPI for complete details of presentation. Chest x- ray suggestive of volume overload. She was found to be in atrial flutter with rapid ventricular response while in ED. Also noted to be in sepsis secondary to possible urinary tract infection with elevated white blood cell count, lactate levels and fever. Also noted hypomagnesemia on labs. Received Zosyn, Lopressor, Lasix in ED. Patient is on Eliquis for chronic atrial fibrillation. On exam patient is moderately built, nonverbal, no apparent distress, normocephalic atraumatic, lungs--bilateral rales, irregularly irregular rhythm, tachycardia, trace pedal edema, abdomen soft nontender, alert, awake, nonverbal, complete neuro exam difficult to perform secondary to patient mental status. Patient is admitted for management of acute on chronic systolic heart failure, atrial flutter with RVR, urinary tract infection, metabolic encephalopathy. Agree with IV Zosyn, IV diuretics, metoprolol, continue Eliquis for anticoagulation. Blood and urine cultures obtained. Replace electrolytes as needed. Oxygen supplement as needed. Discussed with patient's daughter in detail. I personally reviewed the record. Patient is interviewed and examined at bedside. Patient's care is coordinated with Nkechi ERICKSON. Please refer to the documentation above for details of patient's presentation and for discussion of other issues.
[2019-05-06] MEDS ORDERED: SENNA 8.6 MG TAB PO PRN (10:21)
[2019-05-06] MEDS ORDERED: ACETAMINOPHEN 325 MG TAB PO PRN (10:21)
[2019-05-06] MEDS ORDERED: ACETAMINOPHEN 325 MG TAB PO SCH (10:21)
[2019-05-06 10:26] LABS: Influenza A virus by PCR Neg for Influ A (Neg); Influenza B virus by PCR Neg for Influ B (Neg)
[2019-05-06] MEDS ORDERED: MAGNESIUM SULFATE / D5W 1 GM/100 ML BAG IV ONE (10:30)
--- NOTE | 2019-05-06 11:18 | CT Scan Report ---
CT head/brain wo con CLINICAL HISTORY: 84 years-old Female with Altered mental status. Acutely altered mental status TECHNIQUE: Multiple axial CT images of the head were obtained without contrast. A dose lowering tech nique was utilized adhering to the principles of ALARA. CT DOSE: 537.48 mGy.cm COMPARISON: Head CT 08/02/2018. FINDINGS: No acute intracranial hemorrhage, midline shift, intracranial mass, hydrocephalus, territorial ischem ia or abnormal extra-axial collection. Age-related involutional changes with ex vacuo ventriculomegal y. Patchy white matter hypodensities suggest chronic microvascular ischemic disease. Cerebral vascula r calcifications are noted. The calvarium is intact. The paranasal sinuses, mastoid air cells, and middle ear cavities are clear . IMPRESSION: No acute intracranial abnormality. The above report was generated using voice recognition software. It may contain grammatical, syntax o r spelling errors. Electronically signed by: Fam Tello M.D. 05/06/2019 11:16 AM
[2019-05-06] MEDS: APIXABAN 5 MG TABLET PO SCH ×2 (11:39→20:17)
[2019-05-06] MEDS: ESCITALOPRAM OXALATE 10 MG TAB PO SCH (11:39)
[2019-05-06] MEDS: DOCUSATE SODIUM 100 MG CAP PO SCH ×2 (11:39→20:16)
[2019-05-06] MEDS: CALCIUM 600MG + VIT D 400 IU TAB PO SCH ×2 (11:40→20:17)
[2019-05-06] MEDS: CHOLECALCIFEROL 1,000 UNITS TAB PO SCH (11:40)
[2019-05-06] MEDS: MIDODRINE HCL 2.5 MG TAB PO SCH ×3 (11:40→17:29)
[2019-05-06] MEDS: FLUTICASONE/SALMETEROL (ADVAIR) 500/50 INH 14 PUFF INH SCH ×2 (11:41→20:20)
[2019-05-06] MEDS: METOPROLOL TARTRATE 25 MG TAB PO SCH ×2 (11:41→20:19)
[2019-05-06] MEDS: PIPERACILLIN/TAZOBACTAM 3.375 GM in DEXTROSE 5% 100 ML IV SCH ×2 (13:10→20:12)
[2019-05-06] MEDS: LEVALBUTEROL HCL 0.63 MG/3 ML NEB NEB SCH ×2 (14:27→19:26)
[2019-05-06] MEDS ORDERED: FUROSEMIDE 40 MG in SYRINGE 0 ML IV SCH (17:00)
[2019-05-06] MEDS ORDERED: FUROSEMIDE 40 MG/4 ML VIAL IV SCH (17:00)
[2019-05-06] MEDS: FUROSEMIDE 20 MG in SYRINGE 0 ML IV SCH (17:29)
[2019-05-06] MEDS ORDERED: LEVALBUTEROL HCL 0.63 MG/3 ML NEB NEB PRN (17:51)
--- NOTE | 2019-05-06 19:27 | Cardiology Consultation ---
Date of Consultation May 06, 2019 Assessment & Plan (1) Systolic CHF, acute: (2) UTI (urinary tract infection): Patient's volume status is a little bit difficult to assess given her body habitus. She does have interstitial edema and small right greater than left pleural effusions noted on chest x-ray per my personal interpretation. EKG performed on arrival to the emergency room at 513 this morning revealed atrial fibrillation versus atrial flutter with rapid ventricular response 120 bpm. This is improved to the range of 70 to 80 bpm on telemetry at present. Repeat EKG has been requested for tomorrow. Continue current short acting metoprolol tartrate 25 mg twice daily. Recommend ongoing treatment with furosemide 20 mg IV twice daily, as her blood pressure is relatively low with most recent reading of 97/54. The patient does appear to have a urinary tract infection based on urinalysis. Urine culture has not yielded any results as of yet. She is on Zosyn. Recommend transitioning this to an alternative antibiotic as soon as feasible given the significant sodium and fluid load associated with Zosyn administration. DVT prophylaxis: Patient remains on Eliquis. History of Present Illness Attending Physician: Rodger Elkins MD History of Present Illness Clau Diallo is an 84 year old female seen cardiology consultation per the request of Ena Bradshaw PA-C for the evaluation of volume overload with a history of severe systolic congestive heart failure. The patient resides at the [facility]. Her most recent outpatient cardiology follow-up visit had been on 01/08/2019 with Gerald of our practice. On arrival to the emergency room this morning she is found to be hypoxic with pulse oximetry in the range of 80%. The patient has a history of congestive heart failure that was initially diagnosed when she was admitted in July,, LVEF was 20 to 25% at that time with severe global hypokinesis. The etiology of her congestive heart failure is uncertain as given her presentation and her echocardiogram findings it could be due to ischemic or nonischemic etiology. Her discharge weight at the time of that admission was 152 pounds 69 kg. Today she weight 84 kg/ 184 lbs per documented weight. Has been receiving furosemide 20 mg daily. Has been anticoagulated with Eliquis 5 mg twice daily. At the time my assessment the patient is receiving a bronchodilator treatment. I am not certain what her baseline cognitive status is, she does not appear to follow commands at present. Problem list: 1.Dementia 2.Admission to [facility] July 2018 with change in mental status 3.Systolic congestive heart failure, ejection fraction 25 to 30% 4.Moderate mitral regurgitation 5.Mild pulmonary hypertension 6.Small loculated right lateral pericardial effusion 7.Chronic atrial fibrillation 8.Chronic Eliquis anticoagulation 9.Hypotension, prescribed midodrine 10.Hyperlipidemia 11.Hypothyroidism 12.Osteoarthritis 13.COPD 14.GERD 15.B12 deficiency 16.Dysphagia 17.Macular degeneration 18.Colon cancer Allergies Allergy/AdvReac Type Severity Reaction Status Date / Time No Known Allergies Allergy Verified 05/06/19 05:53 Home Medications Home Medications Medication Instructions Recorded Confirmed Type Calcium 600 + D(3) 1 cap PO BID 08/02/18 05/06/19 History albuterol sulfate 2.5 mg INHALATION QID PRN 08/02/18 05/06/19 History alendronate 70 mg PO WK 08/02/18 05/06/19 History atorvastatin 10 mg PO HS 08/02/18 05/06/19 History bisacodyl [Dulcolax (bisacodyl)] 10 mg [place] DAILY PRN 08/02/18 05/06/19 History cholecalciferol (vitamin D3) 2,000 unit PO QAM 08/02/18 05/06/19 History [Vitamin D3] cyanocobalamin (vitamin B-12) 1,000 mcg IM MONTHLY 08/02/18 05/06/19 History docusate sodium [Colace] 100 mg PO BID 08/02/18 05/06/19 History escitalopram oxalate 10 mg PO QAM 08/02/18 05/06/19 History levothyroxine 50 mcg PO DAILYBB 08/02/18 05/06/19 History omeprazole 20 mg PO DAILYBB 08/02/18 05/06/19 History acetaminophen [Tylenol] 650 mg PO BID MDD 3 GRAMS/24 HOURS 05/06/19 05/06/19 History acetaminophen [Tylenol] 650 mg PO Q6H PRN MDD 3 GRAMS/24 05/06/19 05/06/19 History HOURS apixaban [Eliquis] 5 mg PO BID 05/06/19 05/06/19 History fluticasone furoate-vilanterol 1 inh INHALATION HS 05/06/19 05/06/19 History [Breo Ellipta] furosemide [Lasix] 20 mg PO QAM 05/06/19 05/06/19 History metoprolol succinate 12.5 mg PO BID 05/06/19 05/06/19 History midodrine 2.5 mg PO TID 05/06/19 05/06/19 History sennosides [senna] 8.6 mg PO QAM 05/06/19 05/06/19 History Patient History Medical History A-fib (Chronic) Cardiomyopathy Chronic low back pain (Chronic) Colon cancer (Chronic) COPD (chronic obstructive pulmonary disease) (Chronic) COPD (chronic obstructive pulmonary disease) (Chronic) Dementia (Chronic) Depression (Chronic) Dysphagia (Chronic) GERD (gastroesophageal reflux disease) (Chronic) History of colon cancer (Resolved) HLD (hyperlipidemia) (Chronic) HTN (hypertension) (Chronic) Hypothyroidism (Chronic) Systolic CHF, acute Vitamin B12 deficiency (Chronic) Surgical History History of cholecystectomy (Resolved) History of hysterectomy (Resolved) Social History Preferred Language: Urdu Communication Ability: Effective Windows Server Support Technician Required: No Beliefs That Will Affect Care: None marital status: / Current Living Situation: Prison Other Information That Helps Us Care for You: No Feels Safe at Home: Yes Safety Concerns: Feels Safe At This Time Smoking Status: Unknown if ever smoked Hx Alcohol Use: No Hx Substance Use: No Physical Exam Physical Exam: Temp Pulse Resp BP Pulse Ox 36.5 C 74 16 97/54 L 95 05/06/19 15:57 05/06/19 19:27 05/06/19 19:27 05/06/19 15:57 05/06/19 19:27 Constitutional: + ill appearing Respiratory: Mildly decreased breath sounds the bases no rales rhonchi or wheezing Cardiovascular: Rate/Rhythm: + irregularly irregular Heart Sounds: no murmur Vessels: no JVD Extremities: no edema Gastrointestinal (Abdomen): normal bowel sounds, soft, nontender, no hepatosplenomegaly Neurologic: Patient able to raise both hands on command, but not able to follow more complex commands such as showing me 2 fingers, does not offer any meaningful verbal complaints. Results & Data Vital Signs (Past 12 Hours) Vital Signs Temp Pulse Pulse Resp BP BP Pulse Ox 05/06/19 15:57 36.5 C 76 21 97/54 L 95 05/06/19 14:59 66 05/06/19 14:27 77 18 97 05/06/19 12:00 37.9 C H 93 H 18 108/66 97 05/06/19 11:32 113 H 05/06/19 09:52 37.8 C H 101 H 23 112/57 L 96 05/06/19 09:10 108 H 22 102/73 97 05/06/19 07:32 89 16 111/66 93
[2019-05-06] MEDS: BUDESONIDE/FORMOTEROL FUMARATE 160/4.5 60 PUFFS/INHALER INH SCH (20:20)
[2019-05-06] MEDS: ATORVASTATIN 10 MG TAB PO SCH (20:20)
[2019-05-07] MEDS: LEVALBUTEROL HCL 0.63 MG/3 ML NEB NEB SCH (01:44)
[2019-05-07] MEDS ORDERED: XOPENEX/ATROVENT 1.25mg/0.5MG NEB COMBO NEB SCH (02:00)
[2019-05-07] MEDS ORDERED: methylPREDNISolone 20 MG in SYRINGE 0 ML IV STA (02:08)
[2019-05-07] MEDS ORDERED: MAGNESIUM SULFATE / D5W 1 GM/100 ML BAG IV ONE (02:15)
[2019-05-07] MEDS: IPRATROPIUM BROMIDE NEB SOLN 0.02% 2.5 ML VIAL INH SCH ×6 (03:03→23:09)
[2019-05-07] MEDS: LEVALBUTEROL 1.25MG/0.5ML NEB INH SCH ×6 (03:04→23:09)
[2019-05-07] MEDS: PIPERACILLIN/TAZOBACTAM 3.375 GM in DEXTROSE 5% 100 ML IV SCH (04:12)
[2019-05-07] MEDS: LEVOTHYROXINE SODIUM 50 MCG TABLET PO SCH (05:45)
[2019-05-07] MEDS: PANTOprazole 40 MG TAB PO SCH (05:45)
[2019-05-07 06:16] LABS: Basophils # (auto) 0.02 K/uL (0-0.2); Basophils % (auto) 0.2 %; Eosinophils # (auto) 0.06 K/uL (0-0.5); Eosinophils % (auto) 0.5 %; Hematocrit (blood only) 28.3 % (37-47); Hemoglobin 9.2 g/dL (12.0-16.0); Immature Granulocytes # (auto) 0.03 K/uL (0.00-0.02); Immature Granulocytes % (auto) 0.2 %; Lymphocytes # (auto) 1.11 K/uL (1.2-3.4); Mean Corpuscular Hemoglobin 28.2 pg (25-34); Mean Corpuscular Hgb Conc 32.5 g/dL (32-36); Mean Corpuscular Volume 86.8 fL (80-100); Monocytes # (auto) 0.65 K/uL (0.11-0.59); Monocytes % (auto) 5.3 %; Neutrophils # (auto) 10.45 K/uL (1.4-6.5); Neutrophils % (auto) 84.8 %; Platelet Count 236 K/uL (130-400); RDW Coefficient of Variation 18.1 % (11.5-14.5); RDW Standard Deviation 57.4 fL (36.4-46.3); Red Blood Count 3.26 M/uL (4.2-5.4); White Blood Count 12.32 K/uL (4.8-10.8)
[2019-05-07 06:48] LABS: BUN Creatinine Ratio 20.6 (10-20); Creatinine Clr Calc Pharmacy 36.2 ml/min; Est GFR (African American) 46.2; Est GFR (Non-African American) 39.9; Magnesium 2.5 mg/dl (1.8-2.4); Potassium 3.1 mmol/L (3.5-5.1)
[2019-05-07] MEDS: CHOLECALCIFEROL 1,000 UNITS TAB PO SCH (07:59)
[2019-05-07] MEDS: ESCITALOPRAM OXALATE 10 MG TAB PO SCH (07:59)
[2019-05-07] MEDS: FUROSEMIDE 20 MG in SYRINGE 0 ML IV SCH ×2 (07:59→16:28)
[2019-05-07] MEDS: BUDESONIDE/FORMOTEROL FUMARATE 160/4.5 60 PUFFS/INHALER INH SCH ×2 (08:00→21:03)
[2019-05-07] MEDS: METOPROLOL TARTRATE 25 MG TAB PO SCH ×2 (08:00→21:04)
[2019-05-07] MEDS: CALCIUM 600MG + VIT D 400 IU TAB PO SCH ×2 (08:00→21:01)
[2019-05-07] MEDS: MIDODRINE HCL 2.5 MG TAB PO SCH ×3 (08:00→16:28)
[2019-05-07] MEDS: APIXABAN 5 MG TABLET PO SCH ×2 (08:00→21:02)
[2019-05-07] MEDS: DOCUSATE SODIUM 100 MG CAP PO SCH ×2 (08:00→21:02)
[2019-05-07] MEDS: FLUTICASONE/SALMETEROL (ADVAIR) 500/50 INH 14 PUFF INH SCH ×2 (08:00→21:01)
--- NOTE | 2019-05-07 08:18 | XRay Report ---
XR chest 1V portable HISTORY: wheeze COMPARISON: Chest 05/06/2019. FINDINGS: Rotated study. The heart remains enlarged. Slight progression of the interstitial vascular thickening consistent with mild congestive change. No new focal lung consolidations to suggest pneumo aquiles. No pneumothorax. Trace pleural effusions. IMPRESSION: Cardiomegaly with mild congestive change. This has slightly progressed. Electronically signed by: Joseph Corona M.D. 05/07/2019 8:17 AM
[2019-05-07] MEDS ORDERED: POTASSIUM CHLORIDE 20 MEQ/15 ML UDC PO ONE (09:00)
[2019-05-07] MEDS: CEFEPIME 1,000 MG in SYRINGE 0 ML IV SCH (12:12)
--- NOTE | 2019-05-07 13:18 | Cardiology Progress Note ---
Date of Service May 07, 2019 Assessment & Plan (1) Systolic CHF, acute: (2) UTI (urinary tract infection): Continue Lasix 20 mg IV twice daily. Follow GFR, daily weight, and fluid balance. Evidence-based heart failure therapies limited by chronic resting hypotension requiring midodrine. Heart rate appears well controlled on telemetry. Continue Eliquis for stroke prophylaxis. Urine culture confirms presence of E. coli infection. Recommend transition to alternative antibiotic as soon as feasible when sensitivities are available for review. Subjective Patient seen and examined at the bedside. She is awake and alert. Poor historian. Denies chest pain or shortness of breath. Atrial fibrillation rate controlled on telemetry. Tolerating diet and medications. Fluid balance negative approximately 750 cc over the past 24 hours. Her weight is unchanged. Respiratory status improved. IV antibiotics infusing for treatment of urinary tract infection. Borderline hypotensive. She offers no concerns/complaints at this time. Review of Systems Review of Systems: Unobtainable due to mental health condition Physical Exam Constitutional: + obese Respiratory: normal respiratory effort, lungs clear to auscultation Cardiovascular: Rate/Rhythm: + irregularly irregular Heart Sounds: normal S1 and normal S2; no murmur Extremities: no edema Gastrointestinal (Abdomen): Inspection/Auscultation: abdomen normal to inspection and normal bowel sounds; abdomen not distended Percussion/Palpation: abdomen soft; abdomen nontender, no guarding and abdomen not rigid Neurologic: PERRL, EOMI, accommodation nl, no face palsy, no dysarthria Results & Data Vital Signs (Past 12 Hours) Vital Signs Temp Pulse Resp BP BP Pulse Ox 05/07/19 12:08 36.8 C 70 18 95/49 L 95 05/07/19 11:18 93 H 18 94 05/07/19 07:44 36.9 C 77 16 90/54 L 90 05/07/19 07:11 84 20 98 05/07/19 04:01 37.0 C 83 17 86/55 L 95 05/07/19 01:44 77 18 96
--- NOTE | 2019-05-07 18:02 | Hospitalist Progress Note ---
Date of Service May 07, 2019 Assessment & Plan (1) Fluid overload: Patient is an 84 yr female with H/O hypothyroidism, HLD, COPD, chronic a-fib on Eliquis, GERD, dysphagia, dementia, vitamin B12 deficiency, chronic low back pain, depression, colon CA s/p sigmoidectomy presented to ER from [facility] for hypoxia. Acute on chronic systolic heart failure CXR:Cardiomegaly and radiographic evidence of congestive failure/fluid overload. ECHO: EF 30 to 35%, moderate global hypokinesis of the left ventricle, mild LVH, trace loculated posterior pericardial effusion Continue IV Lasix 20 mg twice daily Monitor I's and O's, daily weight, electrolytes, volume status Appreciate cardiology input Continue midodrine for chronic hypotension UTI Metabolic encephalopathy CT head:No acute intracranial abnormality Urine Cx: E.coli Blood cultures pending IV vancomycin, Zosyn transition to IV cefepime (2) A-fib: H/O A-fib on Eliquis Initial EKG in ER aflutter RVR, was given metoprolol tartrate IV with HR down to 80's up to low 100's Normal TSH Hold home metoprolol succinate Continue metoprolol tartrate 25mg BID IV Lopressor PRN On Eliquis for anticoagulation Cardiology on board (3) UTI (urinary tract infection): Treatment as above (4) Elevated lactic acid level: Likely secondary to UTI Lactate levels trended down (5) Hypomagnesemia: Replace and monitor (6) Metabolic encephalopathy: Mental status improving (7) COPD (chronic obstructive pulmonary disease): Continue home inhaler (8) Hypothyroidism: TSH: 3.8 Continue levothyroxine (9) GERD (gastroesophageal reflux disease): Continue PPI (10) Depression: Continue Lexapro DVT Prophylaxis On Eliquis Code Status Conditional code No Intubation, CPR, defibrillation ok. As per POLST form and also Discussed with pt's daughter Follows with Dr Campa at [facility] for routine care Disposition PT/OT prior to discharge Subjective Patient is seen and examined at bedside Mental status improved today Patient is a poor historian Patient denies any chest pain, shortness of breath, dizziness, nausea, abdominal pain Urine culture growing E. coli Review of Systems Review of Systems: All systems reviewed & are unremarkable except as noted in HPI & below Physical Exam Physical Exam: Physical Exam: Vitals signs as noted above General Appearance:Moderately built and nourished, no apparent distress Head: normocephalic, Atraumatic Eyes: normal inspection, EOMI Neck: supple, Trachea midline Respiratory/Chest: Normal breath sounds, CTA Cardiovascular: Irregularly irregular, No murmur Abdomen/GI:Soft, Non tender, Bowel sounds present Extremities/Musculoskelatal:normal inspection, Trace edema Neurologic/Psych:grossly no focal neurological deficits Skin: normal color, warm Results & Data Vital Signs (Past 12 Hours) Vital Signs Temp Pulse Resp BP BP Pulse Ox 05/07/19 15:09 74 18 94 05/07/19 15:01 37.1 C 80 26 H 90/46 L 93 05/07/19 12:08 36.8 C 70 18 95/49 L 95 05/07/19 11:18 93 H 18 94 05/07/19 07:44 36.9 C 77 16 90/54 L 90 05/07/19 07:11 84 20 98 Laboratory Results Short CBC 05/07/19 Range/Units 06:04 WBC 12.32 H (4.8-10.8) K/uL Hgb 9.2 L (12.0-16.0) g/dL Hct 28.3 L (37-47) % Plt Count 236 (130-400) K/uL BMP 05/07/19 06:04 Sodium 135 L Potassium 3.1 L D Chloride 101 Carbon Dioxide 26 BUN 26 H Creatinine 1.24 H Glucose 117 H Calcium 9.0
[2019-05-07] MEDS: ATORVASTATIN 10 MG TAB PO SCH (21:02)
[2019-05-08] MEDS: IPRATROPIUM BROMIDE NEB SOLN 0.02% 2.5 ML VIAL INH SCH ×2 (04:07→07:07)
[2019-05-08] MEDS: LEVALBUTEROL 1.25MG/0.5ML NEB INH SCH ×2 (04:08→07:07)
[2019-05-08 05:47] LABS: Hematocrit (blood only) 27.2 % (37-47); Hemoglobin 8.9 g/dL (12.0-16.0); Mean Corpuscular Hemoglobin 28.6 pg (25-34); Mean Corpuscular Hgb Conc 32.7 g/dL (32-36); Mean Corpuscular Volume 87.5 fL (80-100); Mean Platelet Volume 9.8 fL (7.4-10.4); Platelet Count 231 K/uL (130-400); RDW Standard Deviation 57.3 fL (36.4-46.3); Red Blood Count 3.11 M/uL (4.2-5.4)
[2019-05-08 06:16] LABS: BUN Creatinine Ratio 25.1 (10-20); Calcium 9.1 mg/dl (8.5-10.1); Creatinine Clr Calc Pharmacy 29.3 ml/min; Est GFR (African American) 37.3; Est GFR (Non-African American) 32.2; Potassium 3.1 mmol/L (3.5-5.1)
[2019-05-08] MEDS: LEVOTHYROXINE SODIUM 50 MCG TABLET PO SCH (06:16)
[2019-05-08] MEDS: PANTOprazole 40 MG TAB PO SCH (06:16)
[2019-05-08] MEDS: METOPROLOL TARTRATE 25 MG TAB PO SCH ×2 (08:38→20:39)
[2019-05-08] MEDS: CHOLECALCIFEROL 1,000 UNITS TAB PO SCH (08:38)
[2019-05-08] MEDS: FLUTICASONE/SALMETEROL (ADVAIR) 500/50 INH 14 PUFF INH SCH ×2 (08:38→20:37)
[2019-05-08] MEDS: FUROSEMIDE 20 MG in SYRINGE 0 ML IV SCH (08:38)
[2019-05-08] MEDS: ESCITALOPRAM OXALATE 10 MG TAB PO SCH (08:38)
[2019-05-08] MEDS: BUDESONIDE/FORMOTEROL FUMARATE 160/4.5 60 PUFFS/INHALER INH SCH ×2 (08:38→20:41)
[2019-05-08] MEDS: DOCUSATE SODIUM 100 MG CAP PO SCH ×2 (08:39→20:44)
[2019-05-08] MEDS: MIDODRINE HCL 2.5 MG TAB PO SCH ×3 (08:39→17:23)
[2019-05-08] MEDS: APIXABAN 5 MG TABLET PO SCH ×2 (08:39→20:39)
[2019-05-08] MEDS: CALCIUM 600MG + VIT D 400 IU TAB PO SCH ×2 (08:39→20:38)
[2019-05-08] MEDS ORDERED: POTASSIUM CHLORIDE 20 MEQ TABCR PO STA (09:40)
[2019-05-08] MEDS ORDERED: IPRATROPIUM BROMIDE NEB SOLN 0.02% 2.5 ML VIAL INH PRN (10:55)
[2019-05-08] MEDS ORDERED: LEVALBUTEROL 1.25MG/0.5ML NEB INH PRN (10:55)
--- NOTE | 2019-05-08 11:30 | Cardiology Progress Note ---
Date of Service May 08, 2019 Assessment & Plan (1) Systolic CHF, acute: (2) Chronic atrial fibrillation: (3) Hypokalemia due to loss of potassium: (4) UTI (urinary tract infection): Evidence-based heart failure therapies limited by chronic resting hypotension requiring midodrine. Volume status improved since admission. Continue Lasix 20 mg daily. Heart rate appears well controlled on telemetry with 50 mg metoprolol daily. Transition tartrate formulation to Toprol-XL 50 mg once daily. Continue Eliquis for stroke prophylaxis. Cardiology will sign off. Please call with questions. Subjective Patient seen and examined the bedside. Denies chest pain or shortness of breath. Rate controlled atrial fibrillation noted on telemetry. Fluid balance -900 cc overnight. Creatinine trending upward. She is a poor historian. Offers no complaints at this time. Daughter present at bedside. She offers no additional concerns/complaints. Review of Systems Review of Systems: Unobtainable due to mental health condition Physical Exam Constitutional: + obese Respiratory: normal respiratory effort, lungs clear to auscultation Cardiovascular: Rate/Rhythm: + irregularly irregular Heart Sounds: normal S1 and normal S2; no murmur Extremities: no edema Gastrointestinal (Abdomen): Inspection/Auscultation: abdomen normal to inspection and normal bowel sounds; abdomen not distended Percussion/Palpation: abdomen soft; abdomen nontender, no guarding and abdomen not rigid Neurologic: PERRL, EOMI, accommodation nl, no face palsy, no dysarthria Results & Data Vital Signs (Past 12 Hours) Vital Signs Temp Pulse Resp BP Pulse Ox 05/08/19 07:07 81 18 97 05/08/19 07:04 36.8 C 79 18 102/67 96
[2019-05-08] MEDS: CEFEPIME 1,000 MG in SYRINGE 0 ML IV SCH (12:33)
--- NOTE | 2019-05-08 12:56 | Hospitalist Progress Note ---
Date of Service May 08, 2019 Assessment & Plan (1) Fluid overload: Patient is an 84 yr female with H/O hypothyroidism, HLD, COPD, chronic a-fib on Eliquis, GERD, dysphagia, dementia, vitamin B12 deficiency, chronic low back pain, depression, colon CA s/p sigmoidectomy presented to ER from [facility] for hypoxia. Acute on chronic systolic heart failure CXR:Cardiomegaly and radiographic evidence of congestive failure/fluid overload. ECHO: EF 30 to 35%, moderate global hypokinesis of the left ventricle, mild LVH, trace loculated posterior pericardial effusion IV Lasix 20 mg BID>> transitioned to PO lasix 20mg daily Monitor I's and O's, daily weight, electrolytes, volume status Appreciate cardiology input Continue midodrine for chronic hypotension UTI Metabolic encephalopathy CT head:No acute intracranial abnormality Urine Cx: E.coli Blood cultures:No growth todate IV vancomycin, Zosyn transition to IV cefepime Mental status improved (2) A-fib: H/O A-fib on Eliquis Initial EKG in ER aflutter RVR, was given metoprolol tartrate IV with HR down to 80's up to low 100's Normal TSH Hold home metoprolol succinate Continue metoprolol tartrate 25mg BID IV Lopressor PRN On Eliquis for anticoagulation Cardiology on board (3) UTI (urinary tract infection): Treatment as above (4) Elevated lactic acid level: Likely secondary to UTI Lactate levels trended down (5) Hypomagnesemia: Replace and monitor (6) Metabolic encephalopathy: Mental status improving (7) COPD (chronic obstructive pulmonary disease): Continue home inhaler (8) Hypothyroidism: TSH: 3.8 Continue levothyroxine (9) GERD (gastroesophageal reflux disease): Continue PPI (10) Depression: Continue Lexapro DVT Prophylaxis On Eliquis Code Status Conditional code No Intubation, CPR, defibrillation ok. As per POLST form and also Discussed with pt's daughter Follows with Dr Campa at [facility] for routine care Disposition PT/OT prior to discharge Case management fr discharge planning Subjective Patient is seen and examined at bedside Doing much better today Mental status seemed to be back to baseline Discussed with patient's family at bedside Patient denies any chest pain, shortness of breath, dizziness, nausea, abdominal pain No complaints Review of Systems Review of Systems: All systems reviewed & are unremarkable except as noted in HPI & below Physical Exam Physical Exam: Physical Exam: Vitals signs as noted above General Appearance:Moderately built and nourished, no apparent distress Head: normocephalic, Atraumatic Eyes: normal inspection, EOMI Neck: supple, Trachea midline Respiratory/Chest: Normal breath sounds, CTA Cardiovascular: Irregularly irregular, No murmur Abdomen/GI:Soft, Non tender, Bowel sounds present Extremities/Musculoskelatal:normal inspection, Trace edema Neurologic/Psych:grossly no focal neurological deficits Skin: normal color, warm Results & Data Vital Signs (Past 12 Hours) Vital Signs Temp Pulse Pulse Resp BP BP Pulse Ox 05/08/19 11:30 36.7 C 82 20 107/67 97 05/08/19 07:07 81 18 97 05/08/19 07:04 36.8 C 79 18 102/67 96 Laboratory Results Short CBC 05/08/19 Range/Units 05:28 WBC 11.10 H (4.8-10.8) K/uL Hgb 8.9 L (12.0-16.0) g/dL Hct 27.2 L (37-47) % Plt Count 231 (130-400) K/uL BMP 05/08/19 05:28 Sodium 134 L Potassium 3.1 L Chloride 99 Carbon Dioxide 27 BUN 37 H Creatinine 1.48 H Glucose 85 Calcium 9.1
[2019-05-08] MEDS: ATORVASTATIN 10 MG TAB PO SCH (20:39)
[2019-05-08] MEDS ORDERED: POTASSIUM CHLORIDE 10 MEQ TABCR PO SCH (21:00)
[2019-05-09 05:51] LABS: Hematocrit (blood only) 27.4 % (37-47); Hemoglobin 8.8 g/dL (12.0-16.0); Mean Corpuscular Hgb Conc 32.1 g/dL (32-36); Mean Corpuscular Volume 87.3 fL (80-100); Mean Platelet Volume 10.3 fL (7.4-10.4); Platelet Count 243 K/uL (130-400); RDW Standard Deviation 56.9 fL (36.4-46.3); Red Blood Count 3.14 M/uL (4.2-5.4); White Blood Count 8.18 K/uL (4.8-10.8)
[2019-05-09] MEDS: MIDODRINE HCL 2.5 MG TAB PO SCH ×2 (06:24→12:00)
[2019-05-09] MEDS: LEVOTHYROXINE SODIUM 50 MCG TABLET PO SCH (06:24)
[2019-05-09] MEDS: PANTOprazole 40 MG TAB PO SCH (06:24)
[2019-05-09 06:26] LABS: BUN Creatinine Ratio 26.2 (10-20); Calcium 8.9 mg/dl (8.5-10.1); Creatinine Clr Calc Pharmacy 41.5 ml/min; Est GFR (African American) 57.1; Est GFR (Non-African American) 49.3; Potassium 3.6 mmol/L (3.5-5.1)
[2019-05-09] MEDS: ESCITALOPRAM OXALATE 10 MG TAB PO SCH (08:08)
[2019-05-09] MEDS: BUDESONIDE/FORMOTEROL FUMARATE 160/4.5 60 PUFFS/INHALER INH SCH (08:09)
[2019-05-09] MEDS: APIXABAN 5 MG TABLET PO SCH (08:09)
[2019-05-09] MEDS: CALCIUM 600MG + VIT D 400 IU TAB PO SCH (08:09)
[2019-05-09] MEDS: FLUTICASONE/SALMETEROL (ADVAIR) 500/50 INH 14 PUFF INH SCH (08:09)
[2019-05-09] MEDS: METOPROLOL TARTRATE 25 MG TAB PO SCH (08:09)
[2019-05-09] MEDS: CHOLECALCIFEROL 1,000 UNITS TAB PO SCH (08:09)
[2019-05-09] MEDS ORDERED: FUROSEMIDE 20 MG TAB PO SCH (09:00)
[2019-05-09] MEDS: DOCUSATE SODIUM 100 MG CAP PO SCH (09:51)
--- NOTE | 2019-05-09 10:47 | XCELERA ---
[id number] \\[email or web address]\PDF_Reports\[id number]}___[id number]
[2019-05-09] MEDS: CEFEPIME 1,000 MG in SYRINGE 0 ML IV SCH (12:01)
--- NOTE | 2019-05-09 12:41 | Hospitalist Progress Note ---
Date of Service May 09, 2019 Assessment & Plan (1) Fluid overload: Patient is an 84 yr female with H/O hypothyroidism, HLD, COPD, chronic a-fib on Eliquis, GERD, dysphagia, dementia, vitamin B12 deficiency, chronic low back pain, depression, colon CA s/p sigmoidectomy presented to ER from [facility] for hypoxia. Acute on chronic systolic heart failure CXR:Cardiomegaly and radiographic evidence of congestive failure/fluid overload. ECHO: EF 30 to 35%, moderate global hypokinesis of the left ventricle, mild LVH, trace loculated posterior pericardial effusion IV Lasix 20 mg BID>> transitioned to PO lasix 20mg daily Monitor I's and O's, daily weight, electrolytes, volume status Appreciate cardiology input Continue midodrine for chronic hypotension Volume status improved Sepsis UTI Metabolic encephalopathy CT head:No acute intracranial abnormality Urine Cx: E.coli Blood cultures:No growth to date IV vancomycin, Zosyn transition to IV cefepime Mental status back to baseline Plan to transition to PO abx (2) A-fib: H/O A-fib on Eliquis Initial EKG in ER aflutter RVR, was given metoprolol tartrate IV with HR down to 80's up to low 100's Normal TSH Continue metoprolol for rate control IV Lopressor PRN On Eliquis for anticoagulation Cardiology on board (3) UTI (urinary tract infection): Treatment as above (4) Elevated lactic acid level: Likely secondary to UTI Lactate levels normalized (5) Hypomagnesemia: Replace and monitor (6) Metabolic encephalopathy: Resolved (7) COPD (chronic obstructive pulmonary disease): Continue home inhaler (8) Hypothyroidism: TSH: 3.8 Continue levothyroxine (9) GERD (gastroesophageal reflux disease): Continue PPI (10) Depression: Continue Lexapro DVT Prophylaxis On Eliquis Code Status Conditional code No Intubation, CPR, defibrillation ok. As per POLST form and also Discussed with pt's daughter Follows with Dr Campa at [facility] for routine care Disposition Plan to discharge back to [facility] when medically stable Subjective Patient is seen and examined at bedside No new complaints Eager to get discharged Denies any chest pain, shortness of breath, dizziness, nausea, abdominal pain Discussed with patient's daughter at bedside Review of Systems Review of Systems: All systems reviewed & are unremarkable except as noted in HPI & below Physical Exam Physical Exam: Physical Exam: Vitals signs as noted above General Appearance:Moderately built and nourished, no apparent distress Head: normocephalic, Atraumatic Eyes: normal inspection, EOMI Neck: supple, Trachea midline Respiratory/Chest: Normal breath sounds, CTA Cardiovascular: Irregularly irregular, No murmur Abdomen/GI:Soft, Non tender, Bowel sounds present Extremities/Musculoskelatal:normal inspection, Trace edema Neurologic/Psych:grossly no focal neurological deficits Skin: normal color, warm Results & Data Vital Signs (Past 12 Hours) Vital Signs Temp Pulse Resp BP Pulse Ox 05/09/19 11:03 36.9 C 73 20 106/69 93 05/09/19 07:51 36.4 C L 77 20 108/67 94 05/09/19 03:30 37.1 C 77 17 110/61 95 Laboratory Results Short CBC 05/09/19 Range/Units 05:24 WBC 8.18 (4.8-10.8) K/uL Hgb 8.8 L (12.0-16.0) g/dL Hct 27.4 L (37-47) % Plt Count 243 (130-400) K/uL BMP 05/09/19 05:24 Sodium 136 Potassium 3.6 D Chloride 102 Carbon Dioxide 31 BUN 27 H Creatinine 1.04 Glucose 85 Calcium 8.9
--- NOTE | 2019-05-09 14:10 | Discharge Summary ---
Date of Service May 09, 2019 Admission HPI Per Admitting Provider Pt is 84 y/o F with PMH hypothyroidism, HLD, COPD, chronic a-fib on Eliquis, GERD, dysphagia, dementia, vitamin B12 deficiency, chronic low back pain, depression, colon CA s/p sigmoidectomy presented to ER from [facility] for hypoxia. History obtained from [facility] staff secondary to pt's current mental status. Staff report that this morning patient was not talking and more quiet than usual. It was noticed that she had audible wheezing, increased rales and O2 sat 80% on room air. Also reported patient elevated heart rate of 115- 135. Staff reports that patient appeared more weak and was questionable left sided facial droop. Upon ER arrival pt noted to be hypoxic which improved with oxygen via NC. Unable to further obtain history or ROS secondary to pt not participating/interacting. Unable to obtain FH Attempted to call patient's daughter, Kathleen Cowan however no answer. Admission Exam Per Admitting Provider General: overweight elderly female with no acute distress on oxygen via NC Head: normocephalic, atraumatic Eyes: PERRL, EOM's intact, conjunctiva non-injected, anicteric ENT: normal inspection external ears, nose, mucous membranes moist Neck: supple, trachea midline Lungs: +rales throughout, R:18, 97% on 4L oxygen via NC CV: irregularly irregular, rate: 118, no murmur, 1+ pretibial edema Abd: normal BS, soft, no apparent tenderness to palpation Ext: no cyanosis, no apparent calf tenderness Neuro: Alert, not talking. very limited exam secondary to pt not participating. no facial droop noted Skin: warm, dry Principal Diagnosis Acute on chronic systolic heart failure Urinary tract infection Metabolic encephalopathy Atrial flutter Discharge Data Allergies Allergy/AdvReac Type Severity Reaction Status Date / Time No Known Allergies Allergy Verified 05/06/19 05:53 Consultations 05/06/19 07:09 ED Decision to Admit Stat 05/06/19 10:21 Consult Cardiology Routine Consult Case Management - Discharge Planning Routine Procedures Performed CXR:Cardiomegaly and radiographic evidence of congestive failure/fluid overload. ECHO: EF 30 to 35%, moderate global hypokinesis of the left ventricle, mild LVH, trace loculated posterior pericardial effusion Ordered Studies 05/06/19 09:06 CT head/brain wo con Urgent Hospital Course (1) Fluid overload: Patient is an 84 yr female with H/O hypothyroidism, HLD, COPD, chronic a-fib on Eliquis, GERD, dysphagia, dementia, vitamin B12 deficiency, chronic low back pain, depression, colon CA s/p sigmoidectomy presented to ER from [facility] for hypoxia. Acute on chronic systolic heart failure CXR:Cardiomegaly and radiographic evidence of congestive failure/fluid overload. ECHO: EF 30 to 35%, moderate global hypokinesis of the left ventricle, mild LVH, trace loculated posterior pericardial effusion IV Lasix 20 mg BID>> transitioned to PO lasix 20mg daily Monitor I's and O's, daily weight, electrolytes, volume status Appreciate cardiology input Continue midodrine for chronic hypotension Volume status improved Sepsis UTI Metabolic encephalopathy CT head:No acute intracranial abnormality Urine Cx: E.coli Blood cultures:No growth to date IV vancomycin, Zosyn transition to IV cefepime Mental status back to baseline Plan to transition to PO abx (2) A-fib: H/O A-fib on Eliquis Initial EKG in ER aflutter RVR, was given metoprolol tartrate IV with HR down to 80's up to low 100's Normal TSH Continue metoprolol succinate increased to 50mg daily for rate control IV Lopressor PRN On Eliquis for anticoagulation Cardiology on board (3) UTI (urinary tract infection): Treatment as above (4) Elevated lactic acid level: Likely secondary to UTI Lactate levels normalized (5) Hypomagnesemia: Replace and monitor (6) Metabolic encephalopathy: Resolved (7) COPD (chronic obstructive pulmonary disease): Continue home inhaler (8) Hypothyroidism: TSH: 3.8 Continue levothyroxine (9) GERD (gastroesophageal reflux disease): Continue PPI (10) Depression: Continue Lexapro DVT Prophylaxis On Eliquis Code Status Conditional code No Intubation, CPR, defibrillation ok. As per POLST form and also Discussed with pt's daughter Follows with Dr Campa at [facility] for routine care Disposition Plan to discharge back to [facility] when medically stable Total Time Total Time Spent Total Time Spent (In Minutes): 38 minutes Total Time Includes: Examination of the Patient, Discharge Planning, Medication Reconciliation, Communication With Other Providers and Other Discharge Plan Discharge Items Patient Disposition: Transfer [facility] Reason For Visit: FLUID OVERLOAD Discharge Diagnosis: Acute on chronic systolic heart failure Urinary tract infection Metabolic encephalopathy Atrial flutter Activity: Resume your previous activity Exercise/Sports: Gradually increase as tolerated Non-emergency contact: Primary Care Provider and Junior Architect Call non-emergency contact if: you have any medication questions, your symptoms worsen, your pain is not controlled, your pain is worsening, your pain is unusual for you, your pain is concerning for you and you have a fever Follow-up/Referrals: [facility] [Primary Care Provider] - Diet: Heart Healthy Diet Texture: Dental soft (bite-sized) Diet Comment: Aspiration Precuations at all times Addtl Attending Provider Instructions: Follow-up with your primary care physician at [facility] in 1 week Follow-up with your spanish interpreter/translator in 4 weeks Complete antibiotic course as prescribed for urinary tract infection Seek immediate medical attention if your symptoms reoccur or worsen Medication Changes: You metoprolol succinate is increased to 50 mg daily as per the recommendations from your spanish interpreter/translator. Call your Primary Care doctor if any of the following symptoms or problems start or get worse: * Shortness of breath or difficulty breathing * Wake up at night short of breath * Chest pain * Cough * Swelling of your hands, feet, or legs * More fatigued or tired with your normal activity * Palpitations - sudden fast heart beats WEIGHT * Weigh yourself every morning after using the bathroom. * Use the same scale. * Wear the same amount of clothing. * Write your weight down on a chart. * Call your Primary Care doctor if you gain more than 2-3 pounds in 1-2 days. MEDICATIONS * Use this discharge instruction sheet for medication instructions. * Take your medications at the time your doctor ordered. * Do not skip a dose of your medicines. * If you miss a dose of medicine, take it as soon as possible, but DO NOT DOUBLE A DOSE. * Read your medicine information when you get home. * Know all of the side effects of your medicine. If in doubt, ask your pharmacist * Call your Primary Care doctor's office if you have any side effects. * Be sure all of your doctors know what medicine and herbs you take (including cold, flu, and herbal medicine). Take the following with you to your follow-up doctor appointments: * Weight Chart * Medication List * List of questions Do not drink excessive alcohol, beer or wine. Pending Studies at Discharge: No Stand-Alone Forms: My [facility] Skilled Items Patient informed of condition?: Yes DNR: No Discharge Level of Care: Skilled Communicable Disease: No Discharge Prognosis: Improving Lines: None Urinary Catheter: No Medications and DC Order Prescriptions: New cefuroxime axetil 250 mg Tablet 250 mg PO BID Qty: 8 RF: 0 metoprolol succinate 50 mg tablet extended release 24 hr 50 mg PO DAILY Qty: 30 RF: 1 Continued atorvastatin 10 mg tablet 10 mg PO HS RF: 0 alendronate 70 mg tablet 70 mg PO WK RF: 0 levothyroxine 50 mcg tablet 50 mcg PO DAILYBB RF: 0 omeprazole 20 mg capsule,delayed release(DR/EC) 20 mg PO DAILYBB RF: 0 escitalopram oxalate 10 mg tablet 10 mg PO QAM RF: 0 albuterol sulfate 2.5 mg /3 mL (0.083 %) Solution For Nebulization 2.5 mg INHALATION QID PRN (Reason: Shortness Of Breath Or Wheezing) RF: 0 bisacodyl [Dulcolax (bisacodyl)] 10 mg Suppository 10 mg SC DAILY PRN (Reason: Constipation) RF: 0 cyanocobalamin (vitamin B-12) 1,000 mcg/mL Solution 1,000 mcg IM MONTHLY RF: 0 docusate sodium [Colace] 100 mg Capsule 100 mg PO BID RF: 0 Calcium 600 + D(3) 600 mg calcium- 200 unit Capsule 1 cap PO BID RF: 0 cholecalciferol (vitamin D3) [Vitamin D3] 2,000 unit Tablet 2,000 unit PO QAM RF: 0 sennosides [senna] 8.6 mg Tablet 8.6 mg PO QAM RF: 0 acetaminophen [Tylenol] 325 mg Tablet 650 mg PO Q6H MDD 3 GRAMS/24 HOURS PRN (Reason: Fever Or Pain) RF: 0 furosemide [Lasix] 20 mg Tablet 20 mg PO QAM RF: 0 Eliquis 5 mg Tablet 5 mg PO BID RF: 0 Breo Ellipta 200-25 mcg/dose Blister With Device 1 inh INHALATION HS RF: 0 midodrine 2.5 mg tablet 2.5 mg PO TID RF: 0 Discontinued acetaminophen [Tylenol] 325 mg Tablet 650 mg PO BID MDD 3 GRAMS/24 HOURS RF: 0 metoprolol succinate 25 mg Tablet Extended Release 24 Hr 12.5 mg PO BID RF: 0 Discharge Orders: Discharge Order (Routine); Ordered 05/09/19 Ordered By: Rodger Elkins Admission Data Admit Date/Time: 05/06/19 08:50 Attending Provider: Rodger Elkins Admit Provider: Rodger Elkins Primary Care Provider: [facility] Other Providers: Broderick Almanzar ; Tyrese Pineda ; [facility], Other Interventions: Discharge Summary Assessment (RN) Last Done: 05/09/19 14:12 DC Date/Time DO NOT enter until pt leaves facility: 05/09/19 14:42
[2019-05-09] MEDS ORDERED: METOPROLOL SUCC 25MG EXT REL TAB PO SCH (21:00)
[2019-05-10] MEDS ORDERED: METOPROLOL SUCC 50MG EXT REL TAB PO SCH (09:00)
[2019-05-10] MEDS ORDERED: cefUROXime axetil 250 MG TABLET PO SCH (09:00)
== END 2019-05-09 14:42 | DRG 871 ==
LOC: ED 05:05 → 2E 08:50 → 2S 05-07 19:42

== ENCOUNTER 2019-05-20 03:22 | Inpatient (IN) ==
--- OUTSIDE RECORDS SUMMARY | 2019-05-20 03:25 | External Medical Summary | Continuity of Care Document ---
:1935 Author Name Gladys Rahman Address Unavailable Unavailable , Care Team Providers Name Role Phone Unavailable Unavailable Unavailable Michi Rahman Unavailable [email or web address] Unavailable Unavailable Unavailable Unavailable Unavailable Problems Colon cancer (153.9) (C18.9) Tobacco Use Hypothyroidism (244.9) (E03.9) Fecal occult blood test positive (792.1) (R19.5) Pain in foot (729.5) (M79.673) Anxiety (300.00) (F41.9) Osteoporosis (733.00) (M81.0) Esophageal reflux (530.81) (K21.9) Depression (311) (F32.9) Pre-operative cardiovascular examination (V72.81) (Z01.810) Urinary incontinence (788.30) (R32) Hypercholesterolemia (272.0) (E78.00) Chronic obstructive pulmonary disease (496) (J44.9) Hypertension (401.9) (I10) Difficulty Breathing During Exertion Allergies and Adverse Reactions No Known Drug Allergies (Allergy) Medications Ambien TABS , M.D. Refills: 0 Bisac-Evac 10 MG SUPP , M.D. Refills: 0 Coumadin TABS , M.D. Refills: 0 Fleet Enema ENEM , M.D. Refills: 0 Fosamax TABS , M.D. Refills: 0 Lortab 5-500 MG TABS , M.D. Refills: 0 Ocuvite TABS , M.D. Refills: 0 Milk of Magnesia SUSP , M.D. Refills: 0 Lexapro 10 MG Oral Tablet , M.D. Refills: 0 Metoprolol Succinate ER TB24 , M.D. Refills: 0 Hydrocodone-Acetaminophen 5-500 MG CAPS , M.D. Refills: 0 Tylenol TABS , M.D. Refills: 0 Calcium + D TABS , M.D. Refills: 0 Advair Diskus 500-50 MCG/DOSE Inhalation Aerosol Powder Breath Activated; INHALE 1 PUFF TWICE DAILY. Josiah Borden Start: 09-Dec-2010 Quantity: 1 Refills: 5 Simvastatin 20 MG Oral Tablet; Take one (1) tablet(s) DAILY AT BEDTIME FOR CHOLESTEROL Josiah Borden Start: 14-Jul-2011 Quantity: 30 Refills: 5 Levothyroxine Sodium 75 MCG Oral Tablet; Take one (1) tablet(s) daily Josiah Borden Start: 09-Jan-2011 Quantity: 30 Refills: 5 Proventil HFA 108 (90 Base) MCG/ACT Inha lation Aerosol Solution; INHALE 1 TO 2 PUFFS EVERY 4 TO 6 HOURS NEEDED. Josiah Borden Start: 11-Jun-2011 Quantity: 1 6.7 GM Inhaler Refills: 11 Omeprazole 20 MG Oral Capsule Delayed Re lease; TAKE 2 CAPSULES DAILY EVERY MORNING BEFORE BREAKFAST. Josiah Borden Start: 09-Dec-2010 Quantity: 60 Refills: 5 Procedures History of Total Abdominal Hysterectomy Status: Completed History of Cholecystectomy Laparoscopic Status: Completed Immunizations Pneumococcal polysaccharide vaccine, 23 valent On: 10-Jan-20 11 10:54 Lot #: [id number], [employer] Family History Mother Family history of Cirrhosis Status: Active Family history of Alcoholism Status: Active Plan of Treatment Planned Observations Planned Goals not documented Results No Known Results Results not documented
[2019-05-20 04:35] LABS: Basophils # (auto) 0.03 K/uL (0-0.2); Basophils % (auto) 0.2 %; Eosinophils # (auto) 0.11 K/uL (0-0.5); Eosinophils % (auto) 0.8 %; Hematocrit (blood only) 29.2 % (37-47); Hemoglobin 9.2 g/dL (12.0-16.0); Immature Granulocytes # (auto) 0.04 K/uL (0.00-0.02); Immature Granulocytes % (auto) 0.3 %; Lymphocytes % (auto) 9.9 %; Mean Corpuscular Hgb Conc 31.5 g/dL (32-36); Mean Corpuscular Volume 88.8 fL (80-100); Mean Platelet Volume 9.3 fL (7.4-10.4); Monocytes # (auto) 1.14 K/uL (0.11-0.59); Monocytes % (auto) 8.7 %; Neutrophils # (auto) 10.45 K/uL (1.4-6.5); Neutrophils % (auto) 80.1 %; Platelet Count 453 K/uL (130-400); RDW Coefficient of Variation 17.7 % (11.5-14.5); RDW Standard Deviation 57.3 fL (36.4-46.3); Red Blood Count 3.29 M/uL (4.2-5.4); White Blood Count 13.07 K/uL (4.8-10.8)
[2019-05-20 04:45] LABS: Appearance Urine Clear (Clear); Bacteria Urine Automated Negative (Negative); Bilirubin Urine Negative (Negative); Blood Urine 1+ (Negative); Color Urine Yellow; Epithelial Cell Urine Auto >30 /lpf (0-5); Glucose Urine UA Negative (Negative); Ketones Urine Negative (Negative); Leukocyte Esterase Urine 1+ (Negative); Nitrite Urine Negative (Negative); Protein Urine Trace (Negative); Specific Gravity Urine 1.016 (1.000-1.030); Urobilinogen Urine Negative (Negative)
[2019-05-20 04:48] LABS: INR 1.2 (0.9-1.1); Partial Thromboplastin Time 27.4 Seconds (21.0-31.0); Prothrombin Time 12.5 Seconds (9.0-12.0)
[2019-05-20] MEDS ORDERED: SODIUM CHLORIDE 0.9% 500 ML IV ONE (04:52)
[2019-05-20] MEDS ORDERED: PIPERACILLIN/TAZOBACTAM 4.5 GM/120 ML BAG IV ONE (04:55)
[2019-05-20] MEDS ORDERED: PIPERACILL/TAZOBAC CONSULT ACTIVE PRN (04:55)
[2019-05-20 04:56] LABS: Alanine Aminotransferase 22 U/L (12-78); Albumin Level 2.3 gm/dl (3.4-5.0); Anion Gap 0 (3-11); Aspartate Aminotransferase 21 U/L (15-37); BUN Creatinine Ratio 17.7 (10-20); Blood Urea Nitrogen 17 mg/dl (7-18); Calcium 8.8 mg/dl (8.5-10.1); Carbon Dioxide 30 mmol/L (21-32); Chloride 102 mmol/L (98-107); Est GFR (African American) 62.2; Est GFR (Non-African American) 53.6; Glucose 115 mg/dl (70-99); Potassium 3.9 mmol/L (3.5-5.1); Sodium 132 mmol/L (136-145)
[2019-05-20 04:59] LABS: Renal Epithelial Cells Urine 0-5 /lpf (0-5)
[2019-05-20 05:01] LABS: Albumin Globulin Ratio 0.4 (0.9-2); Alkaline Phosphatase 72 U/L (45-117); Bilirubin,Total 0.3 mg/dl (0.2-1); Globulin 5.5 gm/dl (2.5-4.0); NT Pro B Type Natriuretic Pept 5419 pg/ml (0-1800); Total Protein 7.8 gm/dl (6.4-8.2); Troponin I 0.031 ng/ml (0-0.045)
[2019-05-20] MEDS ORDERED: ALBUT/IPRATROP 3MG/0.5MG NEB 3 ML VIAL NEB STA (05:22)
[2019-05-20] MEDS ORDERED: MIDODRINE HCL 2.5 MG TAB PO STA (05:26)
[2019-05-20] MEDS ORDERED: VANCOMYCIN CONSULT ACTIVE PRN (05:28)
[2019-05-20] MEDS ORDERED: ALBUMIN 25% 50 ML IV STA (05:29)
[2019-05-20] MEDS ORDERED: VANCOMYCIN HCL 2,250 MG in SODIUM CHLORIDE 0.9% 500 ML IV STA (05:30)
--- NOTE | 2019-05-20 05:55 | History & Physical Report ---
Date of Service May 20, 2019 Assessment & Plan (1) Severe sepsis: SIRS plus lactic acidosis secondary to H CAP rule out aspiration COPD exacerbation secondary to above chronic systolic heart failure (EF 30 to 35%, TTE 2019), equivocal volume status A. fib on Eliquis, rate controlled Hypotension on midodrine colon cancer as per records chronic anemia, hemoglobin at baseline dementia as per records PCU given hypotension Cultures, Zosyn, Vancomycin for now. Swallow eval Follow lactic acid, IV albumin 1 dose, facilitate midodrine Hold home diuretic, antihypertensive agents until BP improved. DVT prophylaxis. Eliquis Conditional CODE STATUS as as per recent confinement (okay with CPR, no intubation) Attempted to contact patient's daughter, Kathleen Ramos, over the phone ([phone]) to discuss plan of care. No answer. Left message requesting for call back. History of Present Illness Chief Complaint: Wheezing, tachycardic as per records Primary Care Provider: [facility] History obtained from EM provider and records. Unable to obtain history from patient secondary to dementia. Medical history significant for chronic systolic heart failure (EF 30 to 35%, TTE 2019), mitral regurgitation, A. fib on Eliquis, hypotension on midodrine, COPD as per records, colon cancer as per records, chronic anemia baseline hemoglobin of 8-9, dementia as per records, past tobacco abuse. Recent confinement 2 weeks ago for CHF and E. coli UTI. Patient noted to be more quiet than usual yesterday at longterm. Later found to be wheezing and tachypneic, O2 sats 94 on 3 L as per records. At the ER, patient received NSS, Zosyn for sepsis. Medical History as above Surgical History : Cholecystectomy, hysterectomy Family History : Could not be obtained Personal/Social history : Past tobacco abuse, no EtOH intake, longterm resident Allergies Allergy/AdvReac Type Severity Reaction Status Date / Time No Known Allergies Allergy Verified 05/20/19 03:58 Home Medications Home Medications Medication Instructions Recorded Confirmed Type Calcium 600 + D(3) 1 cap PO BID 08/02/18 05/20/19 History albuterol sulfate 2.5 mg INHALATION Q4 PRN 08/02/18 05/20/19 History alendronate 70 mg PO WK 08/02/18 05/20/19 History atorvastatin 10 mg PO HS 08/02/18 05/20/19 History bisacodyl [Dulcolax (bisacodyl)] 10 mg AK DAILY PRN 08/02/18 05/20/19 History cholecalciferol (vitamin D3) 2,000 unit PO QAM 08/02/18 05/20/19 History [Vitamin D3] cyanocobalamin (vitamin B-12) 1,000 mcg IM MONTHLY 08/02/18 05/20/19 History docusate sodium [Colace] 100 mg PO BID 08/02/18 05/20/19 History escitalopram oxalate 10 mg PO QAM 08/02/18 05/20/19 History levothyroxine 50 mcg PO DAILYBB 08/02/18 05/20/19 History omeprazole 20 mg PO DAILYBB 08/02/18 05/20/19 History Eliquis 5 mg PO BID 05/06/19 05/20/19 History acetaminophen [Tylenol] 325 mg PO Q6H PRN MDD 3 05/06/19 05/20/19 History HOURS furosemide [Lasix] 20 mg PO QAM 05/06/19 05/20/19 History midodrine 2.5 mg PO TID 05/06/19 05/20/19 History sennosides [senna] 8.6 mg PO QAM 05/06/19 05/20/19 History cefuroxime axetil 250 mg PO BID #8 tab 05/09/19 05/20/19 Rx metoprolol succinate 50 mg PO DAILY #30 tab 05/09/19 05/20/19 Rx fluticasone furoate-vilanterol 1 inh INHALATION HS 05/20/19 05/20/19 History [Breo Ellipta] Past Med/Surg History Medical History A-fib (Chronic) Cardiomyopathy Chronic low back pain (Chronic) Colon cancer (Chronic) COPD (chronic obstructive pulmonary disease) (Chronic) COPD (chronic obstructive pulmonary disease) (Chronic) Dementia (Chronic) Depression (Chronic) Dysphagia (Chronic) GERD (gastroesophageal reflux disease) (Chronic) History of colon cancer (Resolved) HLD (hyperlipidemia) (Chronic) HTN (hypertension) (Chronic) Hypothyroidism (Chronic) Systolic CHF, acute Vitamin B12 deficiency (Chronic) Surgical History History of cholecystectomy (Resolved) History of hysterectomy (Resolved) Social History Preferred Language: Sinhala Communication Ability: Effective [employer]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 Beliefs That Will Affect Care: None marital status: / Current Living Situation: Senior Care Feels Safe at Home: Yes Smoking Status: Unknown if ever smoked Hx Alcohol Use: No Hx Substance Use: No Review of Systems Review of Systems: Could not be reliably obtained Physical Exam Physical Exam: GENERAL: Demented, nonverbal, minimal respiratory distress SKIN: Pallor , warm HEENT: Pale palpebral conjunctivae, no ptosis, dry buccal mucosa NECK : Supple, short neck, no tenderness CHEST : Rhonchi more in the right, bilateral expiratory wheezes , no tenderness HEART : RRR, systolic murmur ABDOMEN: Some distention, nontender EXTREMITIES : Minimal LE swelling, no LE tenderness, no other conspicuous deformities noted NEUROLOGIC : Demented, nonverbal, no facial asymmetry, no other gross focality Results & Data Vital Signs (Past 12 Hours) Vital Signs Temp Pulse Pulse Resp BP Pulse Ox 05/20/19 05:32 73 16 92 05/20/19 05:30 72 27 H 90/46 L 93 05/20/19 05:05 90 32 H 97/43 L 92 05/20/19 04:31 101 H 29 H 95/74 L 91 05/20/19 04:15 102 H 30 H 98/52 L 90 05/20/19 03:26 94 H 29 H 92/55 L 91 05/20/19 03:22 37.0 C 94 H 29 H 92/55 L 90 Laboratory Results Laboratory Results WBC 13.07 K/uL (4.8-10.8) H 05/20/19 04:20 RBC 3.29 M/uL (4.2-5.4) L 05/20/19 04:20 Hgb 9.2 g/dL (12.0-16.0) L 05/20/19 04:20 Hct 29.2 % (37-47) L 05/20/19 04:20 MCV 88.8 fL (80-100) 05/20/19 04:20 MCH 28.0 pg (25-34) 05/20/19 04:20 MCHC 31.5 g/dL (32-36) L 05/20/19 04:20 RDW Std Deviation 57.3 fL (36.4-46.3) H 05/20/19 04:20 RDW Coeff of Nidhi 17.7 % (11.5-14.5) H 05/20/19 04:20 Plt Count 453 K/uL (130-400) H 05/20/19 04:20 MPV 9.3 fL (7.4-10.4) 05/20/19 04:20 Immature Gran % (Auto) 0.3 % 05/20/19 04:20 Neut % (Auto) 80.1 % 05/20/19 04:20 Lymph % (Auto) 9.9 % 05/20/19 04:20 [place] % (Auto) 8.7 % 05/20/19 04:20 Eos % (Auto) 0.8 % 05/20/19 04:20 Baso % (Auto) 0.2 % 05/20/19 04:20 Immature Gran # (Auto) 0.04 K/uL (0.00-0.02) H 05/20/19 04:20 Neut # (Auto) 10.45 K/uL (1.4-6.5) H 05/20/19 04:20 Lymph # (Auto) 1.30 K/uL (1.2-3.4) 05/20/19 04:20 [place] # (Auto) 1.14 K/uL (0.11-0.59) H 05/20/19 04:20 Eos # (Auto) 0.11 K/uL (0-0.5) 05/20/19 04:20 Baso # (Auto) 0.03 K/uL (0-0.2) 05/20/19 04:20 PT 12.5 Seconds (9.0-12.0) H 05/20/19 04:20 INR 1.2 (0.9-1.1) H 05/20/19 04:20 APTT 27.4 Seconds (21.0-31.0) 05/20/19 04:20 PTT Ratio 1.0 05/20/19 04:20 Sodium 132 mmol/L (136-145) L 05/20/19 04:20 Potassium 3.9 mmol/L (3.5-5.1) 05/20/19 04:20 Chloride 102 mmol/L (98-107) 05/20/19 04:20 Carbon Dioxide 30 mmol/L (21-32) 05/20/19 04:20 Anion Gap 0 (3-11) L 05/20/19 04:20 BUN 17 mg/dl (7-18) 05/20/19 04:20 Creatinine 0.97 mg/dl (0.6-1.2) 05/20/19 04:20 Est Cr Clr Drug Dosing Not Reportable 05/20/19 04:20 Est GFR ( Amer) 62.2 05/20/19 04:20 Est GFR (Non-Af Amer) 53.6 05/20/19 04:20 BUN/Creatinine Ratio 17.7 (10-20) 05/20/19 04:20 Glucose 115 mg/dl (70-99) H 05/20/19 04:20 Lactate 2.5 mmol/L (0.4-2.0) H* 05/20/19 04:20 Calcium 8.8 mg/dl (8.5-10.1) 05/20/19 04:20 Magnesium 1.7 mg/dl (1.8-2.4) L 05/20/19 04:20 Total Bilirubin 0.3 mg/dl (0.2-1) 05/20/19 04:20 AST 21 U/L (15-37) 05/20/19 04:20 ALT 22 U/L (12-78) 05/20/19 04:20 Alkaline Phosphatase 72 U/L (45-117) 05/20/19 04:20 Troponin I 0.031 ng/ml (0-0.045) 05/20/19 04:20 NT-Pro-B Natriuret Pep 5419 pg/ml (0-1800) H 05/20/19 04:20 Total Protein 7.8 gm/dl (6.4-8.2) 05/20/19 04:20 Albumin 2.3 gm/dl (3.4-5.0) L 05/20/19 04:20 Globulin 5.5 gm/dl (2.5-4.0) H 05/20/19 04:20 Albumin/Globulin Ratio 0.4 (0.9-2) L 05/20/19 04:20 Urine Color Yellow 05/20/19 04:28 Urine Appearance Clear (Clear) 05/20/19 04:28 Urine pH 7.0 (4.5-7.5) 05/20/19 04:28 Ur Specific [place] 1.016 (1.000-1.030) 05/20/19 04:28 Urine Protein Trace (Negative) H 05/20/19 04:28 Urine Glucose (UA) Negative (Negative) 05/20/19 04:28 Urine Ketones Negative (Negative) 05/20/19 04:28 Urine Blood 1+ (Negative) H 05/20/19 04:28 Urine Nitrite Negative (Negative) 05/20/19 04:28 Urine Bilirubin Negative (Negative) 05/20/19 04:28 Urine Urobilinogen Negative (Negative) 05/20/19 04:28 Ur Leukocyte Esterase 1+ (Negative) H 05/20/19 04:28 Urine WBC (Auto) 10-30 /hpf (0-5) H 05/20/19 04:28 Urine RBC (Auto) 5-10 /hpf (0-4) H 05/20/19 04:28 U Hyaline Cast (Auto) 5-10 /lpf (0-5) H 05/20/19 04:28 U Epithel Cells (Auto) >30 /lpf (0-5) H 05/20/19 04:28 Urine Bacteria (Auto) Negative (Negative) 05/20/19 04:28 Ur Renal Epithelial Cell 0-5 /lpf (0-5) 05/20/19 04:28 Diagnostic Findings Chest x-ray as per my interpretation cardiomegaly, right lower lobe infiltrate EKG as per my interpretation : Rate 100, A. fib, LAD, LAFB, no ischemia CT head: No acute intracranial findings
--- NOTE | 2019-05-20 06:25 | Emergency Department Note ---
Entered by Bogdan Gutierrez acting as a scribe for Debbie Ingram DO History of Present Illness General Chief complaint: Shortness of Breath/Dyspnea Stated complaint: sob Time Seen by Provider: 05/20/19 03:25 Source: patient History of Present Illness Provider complaint: dizziness Onset (ago): hour(s) less than 1 Location: head Radiation: non-radiation Pain Consistency: + intermittent Exacerbated By: + none Associated symptoms: + denies other symptoms The patient is an 84 y/o female who presents to the emergency department via EMS from [facility] for evaluation of intermittent dizziness that began prior to arrival. The EMS stated that the patient was observed to be quiet, short of breath with wheezes and low O2 sat at [facility]. They also report that the patient is Demented but had a UTI that she recently finished medication for. The patient states that she is dizzy. She denies any other symptom. Home Medications Home Medications Medication Instructions Recorded Confirmed Type Calcium 600 + D(3) 1 cap PO BID 08/02/18 05/20/19 History albuterol sulfate 2.5 mg INHALATION Q4 PRN 08/02/18 05/20/19 History alendronate 70 mg PO WK 08/02/18 05/20/19 History atorvastatin 10 mg PO HS 08/02/18 05/20/19 History bisacodyl [Dulcolax (bisacodyl)] 10 mg NV DAILY PRN 08/02/18 05/20/19 History cholecalciferol (vitamin D3) 2,000 unit PO QAM 08/02/18 05/20/19 History [Vitamin D3] cyanocobalamin (vitamin B-12) 1,000 mcg IM MONTHLY 08/02/18 05/20/19 History docusate sodium [Colace] 100 mg PO BID 08/02/18 05/20/19 History escitalopram oxalate 10 mg PO QAM 08/02/18 05/20/19 History levothyroxine 50 mcg PO DAILYBB 08/02/18 05/20/19 History omeprazole 20 mg PO DAILYBB 08/02/18 05/20/19 History Eliquis 5 mg PO BID 05/06/19 05/20/19 History acetaminophen [Tylenol] 325 mg PO Q6H PRN MDD 3 GRAMS/24 05/06/19 05/20/19 History HOURS furosemide [Lasix] 20 mg PO QAM 05/06/19 05/20/19 History midodrine 2.5 mg PO TID 05/06/19 05/20/19 History sennosides [senna] 8.6 mg PO QAM 05/06/19 05/20/19 History cefuroxime axetil 250 mg PO BID #8 tab 05/09/19 05/20/19 Rx metoprolol succinate 50 mg PO DAILY #30 tab 05/09/19 05/20/19 Rx fluticasone furoate-vilanterol 1 inh INHALATION HS 05/20/19 05/20/19 History [Breo Ellipta] Allergies Allergy/AdvReac Type Severity Reaction Status Date / Time No Known Allergies Allergy Verified 05/20/19 03:58 Past Med/Surg History Medical History A-fib (Chronic) Cardiomyopathy Chronic low back pain (Chronic) Colon cancer (Chronic) COPD (chronic obstructive pulmonary disease) (Chronic) COPD (chronic obstructive pulmonary disease) (Chronic) Dementia (Chronic) Depression (Chronic) Dysphagia (Chronic) GERD (gastroesophageal reflux disease) (Chronic) History of colon cancer (Resolved) HLD (hyperlipidemia) (Chronic) HTN (hypertension) (Chronic) Hypothyroidism (Chronic) Systolic CHF, acute Vitamin B12 deficiency (Chronic) Surgical History History of cholecystectomy (Resolved) History of hysterectomy (Resolved) Social History Preferred Language: Uzbek Communication Ability: Unable Box Cutter Required: No Beliefs That Will Affect Care: None marital status: / Current Living Situation: Custodial Feels Safe at Home: Yes Smoking Status: Unknown if ever smoked Hx Alcohol Use: No Hx Substance Use: No Review of Systems See HPI for pertinent positives & negatives. and A total of 10 systems reviewed and were otherwise negative Physical Exam Vital Signs Vital Signs - 24 hr 05/20/19 03:22 05/20/19 03:26 05/20/19 03:50 Temperature 37.0 C Temperature Source Oral Pulse Rate 94 H 94 H Pulse Rate [Right Radial] Pulse Rate from SpO2 Sensor 95 H Respiratory Rate 29 H 29 H Respiratory Effort / Characteristics Respiratory Depth Normal Blood Pressure 92/55 L 92/55 L Blood Pressure Mean 67 61 Pulse Oximetry 90 91 Oxygen Delivery Method Room Air Room Air Sepsis Recent Fever Within 48 Hours No Sepsis New/Unexplained Change in Mental Status No Sepsis Action Taken by Nursing No Action Required 05/20/19 04:15 05/20/19 04:31 05/20/19 05:05 Temperature Temperature Source Pulse Rate 102 H 101 H 90 Pulse Rate [Right Radial] Pulse Rate from SpO2 Sensor 103 H 98 H 90 Respiratory Rate 30 H 29 H 32 H Respiratory Effort / Characteristics Respiratory Depth Blood Pressure 98/52 L 95/74 L 97/43 L Blood Pressure Mean 72 79 64 Pulse Oximetry 90 91 92 Oxygen Delivery Method Room Air Room Air Room Air Sepsis Recent Fever Within 48 Hours Sepsis New/Unexplained Change in Mental Status Sepsis Action Taken by Nursing 05/20/19 05:30 05/20/19 05:32 Temperature Temperature Source Pulse Rate 72 Pulse Rate [Right Radial] 73 Pulse Rate from SpO2 Sensor 76 Respiratory Rate 27 H 16 Respiratory Effort / Characteristics Non-Labored Spontaneous Respiratory Depth Blood Pressure 90/46 L Blood Pressure Mean 55 Pulse Oximetry 93 92 Oxygen Delivery Method Room Air Sepsis Recent Fever Within 48 Hours Sepsis New/Unexplained Change in Mental Status Sepsis Action Taken by Nursing HEENT: Head - normocephalic and atraumatic Pupils are equal, round, and reactive to light. Extraocular eye muscles are intact, and sclera are anicteric. Nose - moist nasal mucosa without discharge. Mouth - Dry buccal mucosa. Oropharynx is nonerythematous and there is no tonsillar exudate or edema noted. Neck: Supple; no JVD, nuchal rigidity, cervical lymphadenopathy. Heart: Tachycardic rate and irregularly irregular rhythm. There is a normal S1 and S2 with no murmurs, clicks, or gallops appreciated. Lungs: Clear to auscultation bilaterally with no wheezes, rales, or rhonchi. Abdomen: Soft, mild tenderness to palpation of suprapubic region, nondistended, with good bowel sounds. There are no palpable pulsatile masses or hepatosplenomegaly. There is no guarding, rigidity, or rebound noted. Extremities: No evidence of cyanosis, clubbing, or edema. There are easily palpable peripheral pulses. Skin: Hot and dry with good turgor and no rashes. Her skin is pale. Course Course 0340: Past medical records reviewed. The patient was evaluated in room A11. A complete history and physical exam was performed. Laboratory studies were drawn as below. I ordered continuous cardiac monitoring. The patient is in atrial fibrillation at a rate of 73. She had a chest x-ray as described below. The patient had a twelve-lead EKG as described below. A urine specimen was collected. 0455: I ordered Zosyn 4.5 mg IV and Consult 1 each N/A UD PRN. 0502: I spoke with Dr. Ingram from [facility]. 0512: I spoke with Dr. Almanzar. He will evaluate for further management. 0515: I checked on the patient and updated her on the plan to admit. Administered Medications Albumin Human (Albumin 25%) 50 mls @ 50 mls/hr IV ONE STA Stop: 05/20/19 06:28 Last Admin: 05/20/19 05:55 Dose: 50 mls/hr Documented by: [id number] Discontinued Medications Albuterol (Duoneb) 3 ml NEB NOW STA Stop: 05/20/19 05:23 Last Admin: 05/20/19 05:30 Dose: 3 ml Documented by: [id number] Sodium Chloride (Nss) 500 mls @ 999 mls/hr IV .Q31M ONE Stop: 05/20/19 05:22 Last Infusion: 05/20/19 05:50 Dose: 0 mls/hr Documented by: [id number] Admin: 05/20/19 04:58 Dose: 999 mls/hr Documented by: [id number] Piperacillin Sod/Tazobactam Sod (Zosyn) 4.5 gm in 120 mls @ 240 mls/hr IV NOW ONE Stop: 05/20/19 05:24 Last Infusion: 05/20/19 05:50 Dose: 0 mls/hr Documented by: [id number] Admin: 05/20/19 05:09 Dose: 240 mls/hr Documented by: [id number] Methylprednisolone (Solumedrol) 20 mg IV NOW STA Stop: 05/20/19 05:23 Last Admin: 05/20/19 05:54 Dose: 20 mg Documented by: [id number] Midodrine (Proamatine) 2.5 mg PO NOW STA Stop: 05/20/19 05:27 Last Admin: 05/20/19 06:00 Dose: 2.5 mg Documented by: [id number] Critical Care Time Critical Care Time: Yes Total Critical Care Time: 30 I have personally spent 30 minutes of critical care time in the direct management of this patient. This includes bedside care, interpretation of diagnostic studies, and testing, discussion with consultants, patient, and family members, and other required patient management activities. This 30 minutes is in excess of all separately billable procedures. Medical Decision Making Differential Diagnosis Differential diagnosis: Sepsis, UTI, pneumonia, hypoglycemia, dehydration. Medical Records Attestation: I reviewed the patient's medical records. Home Medications Current Medication List: was personally reviewed by me Laboratory Data Attestation: I reviewed the patient's lab results. Result diagrams: 05/20/19 04:20 05/20/19 04:20 Lab Results 05/20/19 05/20/19 05/20/19 Range/Units 04:20 04:20 04:20 WBC 13.07 H (4.8-10.8) K/uL RBC 3.29 L (4.2-5.4) M/uL Hgb 9.2 L (12.0-16.0) g/dL Hct 29.2 L (37-47) % MCV 88.8 (80-100) fL MCH 28.0 (25-34) pg MCHC 31.5 L (32-36) g/dL RDW Std Deviation 57.3 H (36.4-46.3) fL RDW Coeff of Nidhi 17.7 H (11.5-14.5) % Plt Count 453 H (130-400) K/uL MPV 9.3 (7.4-10.4) fL Immature Gran % (Auto) 0.3 % Neut % (Auto) 80.1 % Lymph % (Auto) 9.9 % [place] % (Auto) 8.7 % Eos % (Auto) 0.8 % Baso % (Auto) 0.2 % Immature Gran # (Auto) 0.04 H (0.00-0.02) K/uL Neut # (Auto) 10.45 H (1.4-6.5) K/uL Lymph # (Auto) 1.30 (1.2-3.4) K/uL [place] # (Auto) 1.14 H (0.11-0.59) K/uL Eos # (Auto) 0.11 (0-0.5) K/uL Baso # (Auto) 0.03 (0-0.2) K/uL PT 12.5 H (9.0-12.0) Seconds INR 1.2 H (0.9-1.1) APTT 27.4 (21.0-31.0) Seconds PTT Ratio 1.0 Sodium 132 L (136-145) mmol/L Potassium 3.9 (3.5-5.1) mmol/L Chloride 102 (98-107) mmol/L Carbon Dioxide 30 (21-32) mmol/L Anion Gap 0 L (3-11) BUN 17 (7-18) mg/dl Creatinine 0.97 (0.6-1.2) mg/dl Est Cr Clr Drug Dosing Not Reportable Est GFR ( Amer) 62.2 Est GFR (Non-Af Amer) 53.6 BUN/Creatinine Ratio 17.7 (10-20) Glucose 115 H (70-99) mg/dl Lactate (0.4-2.0) mmol/L Calcium 8.8 (8.5-10.1) mg/dl Magnesium (1.8-2.4) mg/dl Total Bilirubin 0.3 (0.2-1) mg/dl AST 21 (15-37) U/L ALT 22 (12-78) U/L Alkaline Phosphatase 72 (45-117) U/L Troponin I 0.031 (0-0.045) ng/ml NT-Pro-B Natriuret Pep 5419 H (0-1800) pg/ml Total Protein 7.8 (6.4-8.2) gm/dl Albumin 2.3 L (3.4-5.0) gm/dl Globulin 5.5 H (2.5-4.0) gm/dl Albumin/Globulin Ratio 0.4 L (0.9-2) Urine Color Urine Appearance (Clear) Urine pH (4.5-7.5) Ur Specific [place] (1.000-1.030) Urine Protein (Negative) Urine Glucose (UA) (Negative) Urine Ketones (Negative) Urine Blood (Negative) Urine Nitrite (Negative) Urine Bilirubin (Negative) Urine Urobilinogen (Negative) Ur Leukocyte Esterase (Negative) Urine WBC (Auto) (0-5) /hpf Urine RBC (Auto) (0-4) /hpf U Hyaline Cast (Auto) (0-5) /lpf U Epithel Cells (Auto) (0-5) /lpf Urine Bacteria (Auto) (Negative) Ur Renal Epithelial Cell (0-5) /lpf 05/20/19 05/20/19 05/20/19 Range/Units 04:20 04:20 04:28 WBC (4.8-10.8) K/uL RBC (4.2-5.4) M/uL Hgb (12.0-16.0) g/dL Hct (37-47) % MCV (80-100) fL MCH (25-34) pg MCHC (32-36) g/dL RDW Std Deviation (36.4-46.3) fL RDW Coeff of Nidhi (11.5-14.5) % Plt Count (130-400) K/uL MPV (7.4-10.4) fL Immature Gran % (Auto) % Neut % (Auto) % Lymph % (Auto) % [place] % (Auto) % Eos % (Auto) % Baso % (Auto) % Immature Gran # (Auto) (0.00-0.02) K/uL Neut # (Auto) (1.4-6.5) K/uL Lymph # (Auto) (1.2-3.4) K/uL [place] # (Auto) (0.11-0.59) K/uL Eos # (Auto) (0-0.5) K/uL Baso # (Auto) (0-0.2) K/uL PT (9.0-12.0) Seconds INR (0.9-1.1) APTT (21.0-31.0) Seconds PTT Ratio Sodium (136-145) mmol/L Potassium (3.5-5.1) mmol/L Chloride (98-107) mmol/L Carbon Dioxide (21-32) mmol/L Anion Gap (3-11) BUN (7-18) mg/dl Creatinine (0.6-1.2) mg/dl Est Cr Clr Drug Dosing Est GFR ( Amer) Est GFR (Non-Af Amer) BUN/Creatinine Ratio (10-20) Glucose (70-99) mg/dl Lactate 2.5 H* (0.4-2.0) mmol/L Calcium (8.5-10.1) mg/dl Magnesium 1.7 L (1.8-2.4) mg/dl Total Bilirubin (0.2-1) mg/dl AST (15-37) U/L ALT (12-78) U/L Alkaline Phosphatase (45-117) U/L Troponin I (0-0.045) ng/ml NT-Pro-B Natriuret Pep (0-1800) pg/ml Total Protein (6.4-8.2) gm/dl Albumin (3.4-5.0) gm/dl Globulin (2.5-4.0) gm/dl Albumin/Globulin Ratio (0.9-2) Urine Color Yellow Urine Appearance Clear (Clear) Urine pH 7.0 (4.5-7.5) Ur Specific [place] 1.016 (1.000-1.030) Urine Protein Trace H (Negative) Urine Glucose (UA) Negative (Negative) Urine Ketones Negative (Negative) Urine Blood 1+ H (Negative) Urine Nitrite Negative (Negative) Urine Bilirubin Negative (Negative) Urine Urobilinogen Negative (Negative) Ur Leukocyte Esterase 1+ H (Negative) Urine WBC (Auto) 10-30 H (0-5) /hpf Urine RBC (Auto) 5-10 H (0-4) /hpf U Hyaline Cast (Auto) 5-10 H (0-5) /lpf U Epithel Cells (Auto) >30 H (0-5) /lpf Urine Bacteria (Auto) Negative (Negative) Ur Renal Epithelial Cell 0-5 (0-5) /lpf Imaging Data Attestation: I personally reviewed and interpreted this imaging study as follows: My Impression: Chest x-ray shows cardiomegaly, and right lower lobe infiltrate as well as mild congestive changes, compared to 05/07/19. ECG Data Attestation: I personally reviewed and interpreted this ECG as follows: Indication: + SOB/dyspnea Rate (beats per minute): 100 Rhythm: + atrial fibrillation ECG ST segments: + ST depression (lead 1 and AVL ) ECG Findings: no PACs and no PVCs Comparison ECG Date: from (05/07/19) Change: no significant change Blood Pressure Blood Pressure Findings: Low blood pressure Blood Pressure Disposition: further management by hospitalist FREDDY Calderon The patient is an 84 y/o female who presents to the emergency department via EMS from [facility] for evaluation of dizziness that began prior to arrival. The staff at [facility] noted that the patient was quiet throughout the day and this is usually an indicator that she is getting sick. Overnight tonight, she had increasing shortness of breath and hypoxia. She was transferred here for evaluation. Patient has new findings in the right lower quadrant of her right lung. Staff explained that the patient had just finished a course of oral antibiotics for a urinary tract infection. Chest x-ray shows evidence of a right lower lobe infiltrate with some mild congestive changes. The patient has an elevated lactate and a leukocytosis. She was hypotensive. She was given a bolus of normal saline solution and Pipracil/tazobactam was initiated. [facility] management. Impression & Plan Sepsis, Pneumonia Discharge Plan Visit Data Chief Complaint: Shortness of Breath/Dyspnea Stated Complaint: sob ED Provider: Debbie Ingram Discharge Problem: Sepsis, Pneumonia Patient Disposition: Being Evaluated by Hospitalist Forms Stand Alone Forms: My [facility] Prescriptions Prescriptions: No Action atorvastatin 10 mg tablet 10 mg PO HS RF: 0 alendronate 70 mg tablet 70 mg PO WK RF: 0 levothyroxine 50 mcg tablet 50 mcg PO DAILYBB RF: 0 omeprazole 20 mg capsule,delayed release(DR/EC) 20 mg PO DAILYBB RF: 0 escitalopram oxalate 10 mg tablet 10 mg PO QAM RF: 0 albuterol sulfate 2.5 mg /3 mL (0.083 %) Solution For Nebulization 2.5 mg INHALATION Q4 PRN (Reason: Shortness Of Breath Or Wheezing) RF: 0 bisacodyl [Dulcolax (bisacodyl)] 10 mg Suppository 10 mg NV DAILY PRN (Reason: Constipation) RF: 0 cyanocobalamin (vitamin B-12) 1,000 mcg/mL Solution 1,000 mcg IM MONTHLY RF: 0 docusate sodium [Colace] 100 mg Capsule 100 mg PO BID RF: 0 Calcium 600 + D(3) 600 mg calcium- 200 unit Capsule 1 cap PO BID RF: 0 cholecalciferol (vitamin D3) [Vitamin D3] 2,000 unit Tablet 2,000 unit PO QAM RF: 0 sennosides [senna] 8.6 mg Tablet 8.6 mg PO QAM RF: 0 acetaminophen [Tylenol] 325 mg Tablet 325 mg PO Q6H MDD 3 GRAMS/24 HOURS PRN (Reason: Fever Or Pain) RF: 0 furosemide [Lasix] 20 mg Tablet 20 mg PO QAM RF: 0 Eliquis 5 mg Tablet 5 mg PO BID RF: 0 midodrine 2.5 mg tablet 2.5 mg PO TID RF: 0 cefuroxime axetil 250 mg Tablet 250 mg PO BID Qty: 8 RF: 0 metoprolol succinate 50 mg tablet extended release 24 hr 50 mg PO DAILY Qty: 30 RF: 1 Breo Ellipta 100-25 mcg/dose blister with device 1 inh inhalation HS RF: 0 Referrals Referrals: [facility] [Primary Care Provider] - Discharge Problem: Sepsis Qualifiers: Sepsis type: sepsis due to unspecified organism Sepsis acute organ dysfunction status: unspecified Qualified Code(s): A41.9 - Sepsis, unspecified organism Pneumonia Qualifiers: Pneumonia type: due to unspecified organism Laterality: right Lung location: lower lobe of lung Qualified Code(s): J18.9 - Pneumonia, unspecified organism The scribe's documentation has been prepared under my direction and personally reviewed by me in its entirety. I confirm that the note above accurately reflects all work, treatment, procedures, and medical decision making performed by me.
--- NOTE | 2019-05-20 06:52 | CT Scan Report ---
CT OF THE HEAD WITHOUT CONTRAST CLINICAL HISTORY: ams on eliquis COMPARISON STUDY: Head CT May 06, 2019. CT DOSE: 537.48 mGy.cm TECHNIQUE: Helical axial images of the head were obtained without IV contrast. Automated exposure con trol was utilized for the study. A dose lowering technique was utilized adhering to the principles o f ALARA. FINDINGS: No acute intracranial hemorrhage, midline shift or mass effect is present. The ventricular system is stable. The basilar cisterns are patent. No extra-axial collections are present. There are no findings to suggest acute dural sinus thrombosis or acute territorial infarct. No significant calv arial abnormalities are present. Visualized portions of the sinuses. Apparent postsurgical findings w ithin the bilateral mastoids are noted. White matter hypodensity suggests small vessel disease. IMPRESSION: No acute intracranial findings. ACT 112: Negative or not required by law. Electronically signed by: Raúl Stephenson M.D. 05/20/2019 6:51 AM
[2019-05-20] MEDS ORDERED: bisacodyL 10 MG SUPP PR PRN (07:10)
[2019-05-20] MEDS ORDERED: NITROGLYCERIN SL 0.4 MG/TAB TAB SL PRN (07:10)
[2019-05-20] MEDS ORDERED: ACETAMINOPHEN 325 MG TAB PO PRN (07:10)
--- NOTE | 2019-05-20 07:31 | XRay Report ---
XR chest 1V portable HISTORY: Sepsis COMPARISON: Chest 05/07/2019. FINDINGS: The heart remains enlarged. There are new patchy right lower lobe airspace opacities. The l eft lung remains clear. Mild interstitial thickening, unchanged. This is likely chronic. No pneumotho rax. No pleural effusions. IMPRESSION: 1. There is a new right lower lobe airspace opacity. This likely represents a pneumonia. 2. Stable cardiomegaly. ACT 112: Negative or not required by law. Electronically signed by: Joseph Corona M.D. 05/20/2019 7:30 AM
[2019-05-20] MEDS: IPRATROPIUM BROMIDE NEB SOLN 0.02% 2.5 ML VIAL INH SCH ×3 (07:50→18:49)
[2019-05-20] MEDS: LEVALBUTEROL 1.25MG/0.5ML NEB INH SCH ×3 (07:50→18:49)
--- NOTE | 2019-05-20 08:18 | Pharmacy Report ---
Pharmacy Abx Initial Consult - Date of Service May 20, 2019 - Pharmacy Dosing Scope Date of Consult: 05/20/19 Consultation requested by: Dr. Almanzar Pharmacy is consulted to initiate vancomycin and zosyn IV dosing therapy, order appropriate labs and adjust drug dose/frequency. - Subjective The patient is a 84 year old F admitted on 05/20/19 05:58. - Objective Weight: 80.45 kg Vital Signs (Past 12hrs): Vital Signs Temp Pulse Pulse Resp BP BP Pulse Ox 05/20/19 07:55 80 20 90 05/20/19 07:10 37.2 C 83 22 114/51 L 93 05/20/19 06:32 85 29 H 84/51 L 92 05/20/19 06:00 80 26 H 94/58 L 93 05/20/19 05:32 73 16 92 05/20/19 05:30 72 27 H 90/46 L 93 05/20/19 05:05 90 32 H 97/43 L 92 05/20/19 04:31 101 H 29 H 95/74 L 91 05/20/19 04:15 102 H 30 H 98/52 L 90 05/20/19 03:26 94 H 29 H 92/55 L 91 05/20/19 03:22 37.0 C 94 H 29 H 92/55 L 90 Lab Results (24hrs): Laboratory Tests (24 Hours) 05/20/19 05/20/19 05/20/19 07:32 06:28 04:28 WBC RBC Hgb Hct MCV MCH MCHC RDW Std Deviation RDW Coeff of Nidhi Plt Count MPV Immature Gran % (Auto) Neut % (Auto) Lymph % (Auto) Hart % (Auto) Eos % (Auto) Baso % (Auto) Immature Gran # (Auto) Neut # (Auto) Lymph # (Auto) Hart # (Auto) Eos # (Auto) Baso # (Auto) PT INR APTT PTT Ratio Sodium Potassium Chloride Carbon Dioxide Anion Gap BUN Creatinine Est Cr Clr Drug Dosing Est GFR ( Amer) Est GFR (Non-Af Amer) BUN/Creatinine Ratio Glucose Lactate 1.6 Calcium Magnesium Total Bilirubin AST ALT Alkaline Phosphatase Ammonia 21.6 Troponin I NT-Pro-B Natriuret Pep Total Protein Albumin Globulin Albumin/Globulin Ratio Urine Color Yellow Urine Appearance Clear Urine pH 7.0 Ur Specific [place] 1.016 Urine Protein Trace H Urine Glucose (UA) Negative Urine Ketones Negative Urine Blood 1+ H Urine Nitrite Negative Urine Bilirubin Negative Urine Urobilinogen Negative Ur Leukocyte Esterase 1+ H Urine WBC (Auto) 10-30 H Urine RBC (Auto) 5-10 H U Hyaline Cast (Auto) 5-10 H U Epithel Cells (Auto) >30 H Urine Bacteria (Auto) Negative Ur Renal Epithelial Cell 0-5 05/20/19 05/20/19 05/20/19 04:20 04:20 04:20 WBC RBC Hgb Hct MCV MCH MCHC RDW Std Deviation RDW Coeff of Nidhi Plt Count MPV Immature Gran % (Auto) Neut % (Auto) Lymph % (Auto) Hart % (Auto) Eos % (Auto) Baso % (Auto) Immature Gran # (Auto) Neut # (Auto) Lymph # (Auto) Hart # (Auto) Eos # (Auto) Baso # (Auto) PT INR APTT PTT Ratio Sodium 132 L Potassium 3.9 Chloride 102 Carbon Dioxide 30 Anion Gap 0 L BUN 17 Creatinine 0.97 Est Cr Clr Drug Dosing Not Reportable Est GFR ( Amer) 62.2 Est GFR (Non-Af Amer) 53.6 BUN/Creatinine Ratio 17.7 Glucose 115 H Lactate 2.5 H* Calcium 8.8 Magnesium 1.7 L Total Bilirubin 0.3 AST 21 ALT 22 Alkaline Phosphatase 72 Ammonia Troponin I 0.031 NT-Pro-B Natriuret Pep 5419 H Total Protein 7.8 Albumin 2.3 L Globulin 5.5 H Albumin/Globulin Ratio 0.4 L Urine Color Urine Appearance Urine pH Ur Specific [place] Urine Protein Urine Glucose (UA) Urine Ketones Urine Blood Urine Nitrite Urine Bilirubin Urine Urobilinogen Ur Leukocyte Esterase Urine WBC (Auto) Urine RBC (Auto) U Hyaline Cast (Auto) U Epithel Cells (Auto) Urine Bacteria (Auto) Ur Renal Epithelial Cell 05/20/19 05/20/19 04:20 04:20 WBC 13.07 H RBC 3.29 L Hgb 9.2 L Hct 29.2 L MCV 88.8 MCH 28.0 MCHC 31.5 L RDW Std Deviation 57.3 H RDW Coeff of Nidhi 17.7 H Plt Count 453 H MPV 9.3 Immature Gran % (Auto) 0.3 Neut % (Auto) 80.1 Lymph % (Auto) 9.9 Hart % (Auto) 8.7 Eos % (Auto) 0.8 Baso % (Auto) 0.2 Immature Gran # (Auto) 0.04 H Neut # (Auto) 10.45 H Lymph # (Auto) 1.30 Hart # (Auto) 1.14 H Eos # (Auto) 0.11 Baso # (Auto) 0.03 PT 12.5 H INR 1.2 H APTT 27.4 PTT Ratio 1.0 Sodium Potassium Chloride Carbon Dioxide Anion Gap BUN Creatinine Est Cr Clr Drug Dosing Est GFR ( Amer) Est GFR (Non-Af Amer) BUN/Creatinine Ratio Glucose Lactate Calcium Magnesium Total Bilirubin AST ALT Alkaline Phosphatase Ammonia Troponin I NT-Pro-B Natriuret Pep Total Protein Albumin Globulin Albumin/Globulin Ratio Urine Color Urine Appearance Urine pH Ur Specific [place] Urine Protein Urine Glucose (UA) Urine Ketones Urine Blood Urine Nitrite Urine Bilirubin Urine Urobilinogen Ur Leukocyte Esterase Urine WBC (Auto) Urine RBC (Auto) U Hyaline Cast (Auto) U Epithel Cells (Auto) Urine Bacteria (Auto) Ur Renal Epithelial Cell Micro Results: 05/20/19 04:23 Aerobic Blood Culture - Pending Blood Anaerobic Blood Culture - Pending 05/20/19 04:20 Aerobic Blood Culture - Pending Blood Anaerobic Blood Culture - Pending 05/20/19 04:28 Urine Culture - Pending Urine,Straight Cath - Assessment & Plan Assessment 84 year old F ordered empiric antibiotic therapy for pneumonia CAP with risk factors for MRSA/Pseudomonas * Hospitalized 05/09-05/09 for hypoxia 2/2 acute on chronic congestive heart failure, UTI * Administered parenteral antibiotics during stay (vanc + zosyn x 24hr, and cefepime) * Pseudomonas isolated from 1/2 BC drawn on 05/06 - it appears that this result was reported after the patient was discharged back to [facility] Plan Vancomycin IV * Loading dose: 2250 mg (25 mg/kg) * Maintenance dose: 1250 mg IV (14 mg/kg) every 20 hours * Estimated PK Parameters: Vd 64 L/kg, Alonso 0.044 hr-1, t1/2 15 hr * above parameters are based on current renal function * Scr has ranged from 0.9 to 1.48 mg/dL in recent past * dosing interval may require adjustment if Scr trends upward * Goal trough level: 15 mcg/mL * Trough level ordered for 05/22 @ 1730 Piperacillin/tazobactam * 4.5 g bolus administered over 30 minutes, then 3.375 g IV extended infusion every 8 hours for CrCl greater than 20 mL/min * Recommend the continuation of anti-Pseudomonal coverage until BC result * Consider change to cefepime if Scr starts to trend upward Pharmacy will continue to follow and will adjust dose/frequency as necessary. Thank you.
[2019-05-20] MEDS: LEVOTHYROXINE SODIUM 50 MCG TABLET PO SCH (08:41)
[2019-05-20] MEDS: SENNA 8.6 MG TAB PO SCH (08:41)
[2019-05-20] MEDS: PANTOprazole 40 MG TAB PO SCH (08:42)
[2019-05-20] MEDS: ESCITALOPRAM OXALATE 10 MG TAB PO SCH (08:42)
[2019-05-20] MEDS: MAGNESIUM SULFATE / D5W 1 GM/100 ML BAG IV SCH ×2 (08:43→12:03)
[2019-05-20] MEDS: DOCUSATE SODIUM 100 MG CAP PO SCH ×2 (08:43→20:54)
[2019-05-20] MEDS: MIDODRINE HCL 2.5 MG TAB PO SCH ×3 (08:44→18:35)
[2019-05-20 10:27] LABS: Influenza A virus by PCR Neg for Influ A (Neg); Influenza B virus by PCR Neg for Influ B (Neg)
[2019-05-20] MEDS: PIPERACILLIN/TAZOBACTAM 3.375 GM in DEXTROSE 5% 100 ML IV SCH ×2 (11:11→18:36)
[2019-05-20] MEDS ORDERED: XOPENEX/ATROVENT 1.25mg/0.5MG NEB COMBO NEB SCH (13:00)
--- NOTE | 2019-05-20 16:49 | Hospitalist Progress Note ---
Date of Service May 20, 2019 Assessment & Plan (1) Severe sepsis: Healthcare associated pneumonia Likely due to aspiration Severe Sepsis Mild COPD exacerbation Lactic acidosis CXR:There is a new right lower lobe airspace opacity. This likely represents a pneumonia. Stable cardiomegaly Negative Influenza, MRSA Blood/Urine Cx:Pending Continue IV Vanco and Zosyn for now Also on Prednisone, Nebs Aspiration Precautions Speech/Swallow eval Resume home inhalers in a.m. Metabolic encephalopathy Likely secondary to above CT Head:No acute intracranial findings. Mental status improved Reorient frequently to minimize delirium Chronic systolic heart failure Last ECHO: EF 30 to 35%, moderate global hypokinesis of the left ventricle, mild LVH, trace loculated posterior pericardial effusion No signs of volume overload Resume home diuretics as able Continue midodrine for chronic hypotension A-fib: On Eliquis for anticoagulation Resume Metoprolol Monitor Hypomagnesemia: Replace and monitor as needed Hypothyroidism: Continue levothyroxine GERD: Continue PPI Depression: Continue Lexapro H/O Colon cancer H/O Dementia As per records DVT Px On Eliquis Code Status Conditional code No Intubation, CPR, defibrillation ok. Disposition: Plan to discharge back to [facility] when medically stable Follows with Dr Campa for routine care Subjective Patient is seen and examined at bedside Reports cough with clear expectoration Denies any chest pain, shortness of breath, dizziness, nausea, abdominal pain Mental status improved today Review of Systems Review of Systems: All systems reviewed & are unremarkable except as noted in HPI & below Physical Exam Physical Exam: hysical Exam: Vitals signs as noted above General Appearance:Moderately built and nourished, no apparent distress Head: normocephalic, Atraumatic Eyes: normal inspection, EOMI Neck: supple, Trachea midline Respiratory/Chest: Normal breath sounds, basal crackles Cardiovascular: Irregularly irregular, No murmur Abdomen/GI:Soft, Non tender, Bowel sounds present Extremities/Musculoskelatal:normal inspection, Trace edema Neurologic/Psych:grossly no focal neurological deficits Skin: normal color, warm Results & Data Vital Signs (Past 12 Hours) Vital Signs Temp Pulse Pulse Resp BP BP Pulse Ox 05/20/19 15:22 36.6 C 78 18 98/64 L 96 05/20/19 13:00 90 18 92 05/20/19 12:02 36.5 C 72 18 104/70 96 05/20/19 09:09 05/20/19 07:55 80 20 90 05/20/19 07:10 37.2 C 83 22 114/51 L 93 05/20/19 06:32 85 29 H 84/51 L 92 05/20/19 06:00 80 26 H 94/58 L 93 05/20/19 05:32 73 16 92 05/20/19 05:30 72 27 H 90/46 L 93 05/20/19 05:05 90 32 H 97/43 L 92 05/20/19 04:31 101 H 29 H 95/74 L 91 Pulse Ox 05/20/19 15:22 05/20/19 13:00 05/20/19 12:02 05/20/19 09:09 93 05/20/19 07:55 05/20/19 07:10 05/20/19 06:32 05/20/19 06:00 05/20/19 05:32 05/20/19 05:30 05/20/19 05:05 05/20/19 04:31 Laboratory Results Short CBC 05/20/19 Range/Units 04:20 WBC 13.07 H (4.8-10.8) K/uL Hgb 9.2 L (12.0-16.0) g/dL Hct 29.2 L (37-47) % Plt Count 453 H (130-400) K/uL BMP 05/20/19 04:20 Sodium 132 L Potassium 3.9 Chloride 102 Carbon Dioxide 30 BUN 17 Creatinine 0.97 Glucose 115 H Calcium 8.8 Cardiac Enzymes 05/20/19 Range/Units 04:20 Troponin I 0.031 (0-0.045) ng/ml Liver Function 05/20/19 Range/Units 04:20 Total Bilirubin 0.3 (0.2-1) mg/dl AST 21 (15-37) U/L ALT 22 (12-78) U/L Alkaline Phosphatase 72 (45-117) U/L Albumin 2.3 L (3.4-5.0) gm/dl Urine 05/20/19 Range/Units 04:28 Urine Color Yellow Urine Appearance Clear (Clear) Urine pH 7.0 (4.5-7.5) Ur Specific [place] 1.016 (1.000-1.030) Urine Protein Trace H (Negative) Urine Glucose (UA) Negative (Negative)
[2019-05-20] MEDS: APIXABAN 5 MG TABLET PO SCH (20:55)
[2019-05-21] MEDS: IPRATROPIUM BROMIDE NEB SOLN 0.02% 2.5 ML VIAL INH SCH ×3 (00:43→14:01)
[2019-05-21] MEDS: LEVALBUTEROL 1.25MG/0.5ML NEB INH SCH ×3 (00:43→14:01)
[2019-05-21] MEDS: PIPERACILLIN/TAZOBACTAM 3.375 GM in DEXTROSE 5% 100 ML IV SCH ×3 (01:31→18:18)
[2019-05-21] MEDS ORDERED: VANCOMYCIN HCL 1,250 MG in SODIUM CHLORIDE 0.9% 250 ML IV SCH (02:00)
[2019-05-21] MEDS: LEVOTHYROXINE SODIUM 50 MCG TABLET PO SCH (05:27)
[2019-05-21] MEDS: PANTOprazole 40 MG TAB PO SCH (05:41)
[2019-05-21 06:55] LABS: BUN Creatinine Ratio 19.4 (10-20); Blood Urea Nitrogen 17 mg/dl (7-18); Calcium 8.5 mg/dl (8.5-10.1); Carbon Dioxide 28 mmol/L (21-32); Chloride 106 mmol/L (98-107); Est GFR (African American) 68.1; Est GFR (Non-African American) 58.7; Glucose 85 mg/dl (70-99); Magnesium 2.3 mg/dl (1.8-2.4); Potassium 3.7 mmol/L (3.5-5.1); Sodium 138 mmol/L (136-145)
[2019-05-21 07:23] LABS: Basophils # (auto) 0.03 K/uL (0-0.2); Basophils % (auto) 0.4 %; Eosinophils # (auto) 0.16 K/uL (0-0.5); Hemoglobin 8.3 g/dL (12.0-16.0); Immature Granulocytes # (auto) 0.03 K/uL (0.00-0.02); Immature Granulocytes % (auto) 0.4 %; Lymphocytes # (auto) 1.15 K/uL (1.2-3.4); Lymphocytes % (auto) 14.3 %; Mean Corpuscular Hemoglobin 27.9 pg (25-34); Mean Corpuscular Hgb Conc 31.9 g/dL (32-36); Mean Corpuscular Volume 87.5 fL (80-100); Monocytes % (auto) 9.9 %; Neutrophils # (auto) 5.89 K/uL (1.4-6.5); Platelet Count 328 K/uL (130-400); RDW Standard Deviation 57.8 fL (36.4-46.3); Red Blood Count 2.97 M/uL (4.2-5.4); White Blood Count 8.06 K/uL (4.8-10.8)
[2019-05-21] MEDS: APIXABAN 5 MG TABLET PO SCH ×2 (07:29→21:04)
[2019-05-21] MEDS: predniSONE 20 MG TAB PO SCH (07:29)
[2019-05-21] MEDS: ESCITALOPRAM OXALATE 10 MG TAB PO SCH (07:29)
[2019-05-21] MEDS: DOCUSATE SODIUM 100 MG CAP PO SCH ×2 (07:29→21:03)
[2019-05-21] MEDS: METOPROLOL SUCC 50MG EXT REL TAB PO SCH (07:30)
[2019-05-21] MEDS: SENNA 8.6 MG TAB PO SCH (07:30)
[2019-05-21] MEDS: MIDODRINE HCL 2.5 MG TAB PO SCH ×3 (07:32→17:42)
--- NOTE | 2019-05-21 13:06 | Hospitalist Progress Note ---
Date of Service May 21, 2019 Assessment & Plan (1) Severe sepsis: Healthcare associated pneumonia Likely due to aspiration Severe Sepsis Mild COPD exacerbation Lactic acidosis CXR:There is a new right lower lobe airspace opacity. This likely represents a pneumonia. Stable cardiomegaly Negative Influenza, MRSA Blood/Urine Cx: No growth to date IV Vancomycin discontinued Continue IV Zosyn Continue Prednisone, Nebs Aspiration Precautions Speech/Swallow eval Pulmonary status improving Metabolic encephalopathy Likely secondary to above CT Head:No acute intracranial findings. Mental status back to baseline Reorient frequently to minimize delirium Chronic systolic heart failure Last ECHO: EF 30 to 35%, moderate global hypokinesis of the left ventricle, mild LVH, trace loculated posterior pericardial effusion No signs of volume overload Resume lasix Continue midodrine for chronic hypotension A-fib: On Eliquis for anticoagulation Continue Metoprolol Monitor Hypomagnesemia: Resolved monitor Hypothyroidism: Continue levothyroxine GERD: Continue PPI Depression: Continue Lexapro H/O Colon cancer H/O Dementia As per records DVT Px On Eliquis Code Status Conditional code No Intubation, CPR, defibrillation ok. Disposition: Plan to discharge back to [facility] when medically stable Follows with Dr Campa for routine care Subjective Patient is seen and examined at bedside Less cough today Denies any shortness of breath Also denies any chest pain, dizziness, nausea, abdominal pain Mental status back to baseline Advised to quit smoking No other complaints Review of Systems Review of Systems: All systems reviewed & are unremarkable except as noted in HPI & below Physical Exam Physical Exam: Physical Exam: Vitals signs as noted above General Appearance:Moderately built and nourished, no apparent distress Head: normocephalic, Atraumatic Eyes: normal inspection, EOMI Neck: supple, Trachea midline Respiratory/Chest: Normal breath sounds, CTA Cardiovascular: Irregularly irregular, No murmur Abdomen/GI:Soft, Non tender, Bowel sounds present Extremities/Musculoskelatal:normal inspection, Trace edema Neurologic/Psych:grossly no focal neurological deficits Skin: normal color, warm Results & Data Vital Signs (Past 12 Hours) Vital Signs Temp Pulse Resp BP Pulse Ox 05/21/19 11:07 36.7 C 73 18 96/60 L 97 05/21/19 07:49 36.3 C L 83 18 119/74 97 05/21/19 07:17 78 16 93 05/21/19 03:44 36.4 C L 81 16 103/70 97 Laboratory Results Short CBC 05/21/19 05/21/19 Range/Units 06:04 07:11 WBC Cancelled 8.06 Hgb Cancelled 8.3 L Hct Cancelled 26.0 L Plt Count Cancelled 328 BMP 05/21/19 06:04 Sodium 138 Potassium 3.7 Chloride 106 Carbon Dioxide 28 BUN 17 Creatinine 0.90 Glucose 85 Calcium 8.5
[2019-05-21] MEDS ORDERED: IPRATROPIUM BROMIDE NEB SOLN 0.02% 2.5 ML VIAL INH PRN (13:37)
[2019-05-21] MEDS ORDERED: LEVALBUTEROL 1.25MG/0.5ML NEB INH PRN (13:38)
[2019-05-21] MEDS: ATORVASTATIN 10 MG TAB PO SCH (21:03)
[2019-05-22] MEDS: PIPERACILLIN/TAZOBACTAM 3.375 GM in DEXTROSE 5% 100 ML IV SCH ×3 (01:17→17:50)
[2019-05-22] MEDS: LEVOTHYROXINE SODIUM 50 MCG TABLET PO SCH (05:48)
[2019-05-22] MEDS: PANTOprazole 40 MG TAB PO SCH (05:48)
[2019-05-22] MEDS: MIDODRINE HCL 2.5 MG TAB PO SCH ×3 (07:59→17:50)
[2019-05-22] MEDS: APIXABAN 5 MG TABLET PO SCH ×2 (07:59→20:07)
[2019-05-22] MEDS: METOPROLOL SUCC 50MG EXT REL TAB PO SCH (08:00)
[2019-05-22] MEDS: ESCITALOPRAM OXALATE 10 MG TAB PO SCH (08:00)
[2019-05-22] MEDS: predniSONE 20 MG TAB PO SCH (08:00)
[2019-05-22] MEDS: SENNA 8.6 MG TAB PO SCH (08:00)
[2019-05-22] MEDS: FUROSEMIDE 20 MG TAB PO SCH (08:00)
[2019-05-22] MEDS: DOCUSATE SODIUM 100 MG CAP PO SCH ×2 (08:24→20:46)
[2019-05-22 10:02] LABS: Hematocrit (blood only) 28.6 % (37-47); Hemoglobin 9.1 g/dL (12.0-16.0); Mean Corpuscular Hgb Conc 31.8 g/dL (32-36); Mean Platelet Volume 9.6 fL (7.4-10.4); Platelet Count 410 K/uL (130-400); RDW Coefficient of Variation 17.9 % (11.5-14.5); RDW Standard Deviation 57.8 fL (36.4-46.3); Red Blood Count 3.25 M/uL (4.2-5.4); White Blood Count 11.74 K/uL (4.8-10.8)
[2019-05-22 10:16] LABS: BUN Creatinine Ratio 18.5 (10-20); Blood Urea Nitrogen 19 mg/dl (7-18); Carbon Dioxide 29 mmol/L (21-32); Chloride 104 mmol/L (98-107); Est GFR (African American) 58.5; Est GFR (Non-African American) 50.5; Glucose 92 mg/dl (70-99); Potassium 3.7 mmol/L (3.5-5.1); Sodium 137 mmol/L (136-145)
--- NOTE | 2019-05-22 11:29 | Hospitalist Progress Note ---
Date of Service May 22, 2019 Assessment & Plan (1) Severe sepsis: Healthcare associated pneumonia Likely due to aspiration Severe Sepsis Mild COPD exacerbation Lactic acidosis CXR:There is a new right lower lobe airspace opacity. This likely represents a pneumonia. Stable cardiomegaly Negative Influenza, MRSA Blood/Urine Cx: No growth to date IV Vancomycin discontinued Continue IV Zosyn for now Continue Prednisone, Nebs Aspiration Precautions Speech/Swallow eval Pulmonary Hygiene Metabolic encephalopathy--Resolved Likely secondary to above CT Head:No acute intracranial findings. Reorient frequently to minimize delirium monitor Chronic systolic heart failure Last ECHO: EF 30 to 35%, moderate global hypokinesis of the left ventricle, mild LVH, trace loculated posterior pericardial effusion No signs of volume overload Resumed lasix Continue midodrine for chronic hypotension A-fib: On Eliquis for anticoagulation Continue Metoprolol Monitor Hypomagnesemia: Resolved monitor Hypothyroidism: Continue levothyroxine GERD: Continue PPI Depression: Continue Lexapro H/O Colon cancer H/O Dementia As per records DVT Px On Eliquis Code Status Conditional code No Intubation, CPR, defibrillation ok. Disposition: Plan to discharge back to [facility] when medically stable Follows with Dr Campa for routine care Subjective Patient is seen and examined at bedside No new complaints Has coarse breath sounds Minimal cough Denies any chest pain,SOB, dizziness, nausea, abdominal pain Mild Leukocytosis likely due to prednisone Review of Systems Review of Systems: All systems reviewed & are unremarkable except as noted in HPI & below Physical Exam Physical Exam: Physical Exam: Vitals signs as noted above General Appearance:Moderately built and nourished, no apparent distress Head: normocephalic, Atraumatic Eyes: normal inspection, EOMI Neck: supple, Trachea midline Respiratory/Chest: Coarse breath sounds, CTA Cardiovascular: Irregularly irregular, No murmur Abdomen/GI:Soft, Non tender, Bowel sounds present Extremities/Musculoskelatal:normal inspection, Trace edema Neurologic/Psych:grossly no focal neurological deficits Skin: normal color, warm Results & Data Vital Signs (Past 12 Hours) Vital Signs Temp Pulse Resp BP Pulse Ox 05/22/19 07:16 36.4 C L 89 20 124/75 92 Laboratory Results Short CBC 05/22/19 Range/Units 09:24 WBC 11.74 H (4.8-10.8) K/uL Hgb 9.1 L (12.0-16.0) g/dL Hct 28.6 L (37-47) % Plt Count 410 H (130-400) K/uL BMP 05/22/19 09:24 Sodium 137 Potassium 3.7 Chloride 104 Carbon Dioxide 29 BUN 19 H Creatinine 1.02 Glucose 92 Calcium 9.0
[2019-05-22] MEDS: PATIENT'S HEIGHT NEEDED SCH ×2 (11:55→13:41)
[2019-05-22] MEDS: LEVALBUTEROL 1.25MG/0.5ML NEB INH SCH ×2 (13:11→20:22)
[2019-05-22] MEDS: IPRATROPIUM BROMIDE NEB SOLN 0.02% 2.5 ML VIAL INH SCH ×2 (13:11→20:22)
[2019-05-22] MEDS ORDERED: Nursing to Pharmacy Communication ONE (13:42)
[2019-05-22] MEDS ORDERED: FUROSEMIDE 40 MG TAB PO ONE (14:00)
[2019-05-22] MEDS ORDERED: VANCOMYCIN TROUGH ONE (17:30)
[2019-05-22] MEDS: ATORVASTATIN 10 MG TAB PO SCH (20:08)
[2019-05-23] MEDS: IPRATROPIUM BROMIDE NEB SOLN 0.02% 2.5 ML VIAL INH SCH ×4 (01:28→19:07)
[2019-05-23] MEDS: LEVALBUTEROL 1.25MG/0.5ML NEB INH SCH ×4 (01:28→19:07)
[2019-05-23] MEDS: PIPERACILLIN/TAZOBACTAM 3.375 GM in DEXTROSE 5% 100 ML IV SCH ×3 (01:30→18:01)
[2019-05-23] MEDS: LEVOTHYROXINE SODIUM 50 MCG TABLET PO SCH (06:12)
[2019-05-23] MEDS: PANTOprazole 40 MG TAB PO SCH (06:12)
[2019-05-23] MEDS: ESCITALOPRAM OXALATE 10 MG TAB PO SCH (08:44)
[2019-05-23] MEDS: predniSONE 20 MG TAB PO SCH (08:44)
[2019-05-23] MEDS: SENNA 8.6 MG TAB PO SCH (08:45)
[2019-05-23] MEDS: MIDODRINE HCL 2.5 MG TAB PO SCH ×3 (08:45→16:35)
[2019-05-23] MEDS: DOCUSATE SODIUM 100 MG CAP PO SCH ×2 (08:45→20:35)
[2019-05-23] MEDS: APIXABAN 5 MG TABLET PO SCH ×2 (08:45→20:33)
[2019-05-23] MEDS: FUROSEMIDE 20 MG TAB PO SCH (08:45)
[2019-05-23] MEDS: METOPROLOL SUCC 50MG EXT REL TAB PO SCH (08:45)
--- NOTE | 2019-05-23 17:11 | Hospitalist Progress Note ---
Date of Service May 23, 2019 Assessment & Plan (1) Severe sepsis: Healthcare associated pneumonia Likely due to aspiration Severe Sepsis Mild COPD exacerbation Lactic acidosis CXR:There is a new right lower lobe airspace opacity. This likely represents a pneumonia. Stable cardiomegaly Negative Influenza, MRSA Blood/Urine Cx: No growth to date IV Vancomycin discontinued Continue IV Zosyn while hospitalized Continue Prednisone, Nebs Aspiration Precautions Speech/Swallow eval Pulmonary Hygiene Pulmonary status improved with chest PT Metabolic encephalopathy--Resolved Likely secondary to above CT Head:No acute intracranial findings. Reorient frequently to minimize delirium monitor Chronic systolic heart failure Last ECHO: EF 30 to 35%, moderate global hypokinesis of the left ventricle, mild LVH, trace loculated posterior pericardial effusion No signs of volume overload Continue home Lasix Continue midodrine for chronic hypotension A-fib: On Eliquis for anticoagulation Continue Metoprolol Monitor Hypomagnesemia: Resolved monitor Hypothyroidism: Continue levothyroxine GERD: Continue PPI Depression: Continue Lexapro H/O Colon cancer H/O Dementia As per records DVT Px On Eliquis Code Status Conditional code No Intubation, CPR, defibrillation ok. Disposition: Plan to discharge back to [facility] when medically stable Follows with Dr Campa for routine care Subjective Patient is seen and examined at bedside Offers no new complaints Breathing status improved with chest PT Blood cultures remain negative Minimal cough Denies any chest pain,SOB, dizziness, nausea, abdominal pain Review of Systems Review of Systems: All systems reviewed & are unremarkable except as noted in HPI & below Physical Exam Physical Exam: Physical Exam: Vitals signs as noted above General Appearance:Moderately built and nourished, no apparent distress Head: normocephalic, Atraumatic Eyes: normal inspection, EOMI Neck: supple, Trachea midline Respiratory/Chest: Normal breath sounds, scattered wheezes Cardiovascular: Irregularly irregular, No murmur Abdomen/GI:Soft, Non tender, Bowel sounds present Extremities/Musculoskelatal:normal inspection, Trace edema Neurologic/Psych:grossly no focal neurological deficits Skin: normal color, warm Results & Data Vital Signs (Past 12 Hours) Vital Signs Temp Pulse Resp BP Pulse Ox 05/23/19 16:09 108/70 05/23/19 14:58 36.3 C L 73 18 86/51 L 96 05/23/19 13:30 72 18 90 05/23/19 07:06 36.7 C 77 20 121/76 95 05/23/19 06:57 75 18 94
[2019-05-23] MEDS: ATORVASTATIN 10 MG TAB PO SCH (20:32)
[2019-05-24] MEDS: IPRATROPIUM BROMIDE NEB SOLN 0.02% 2.5 ML VIAL INH SCH ×2 (01:01→06:53)
[2019-05-24] MEDS: LEVALBUTEROL 1.25MG/0.5ML NEB INH SCH ×2 (01:02→06:53)
[2019-05-24] MEDS: PIPERACILLIN/TAZOBACTAM 3.375 GM in DEXTROSE 5% 100 ML IV SCH ×2 (01:54→09:31)
[2019-05-24] MEDS: PANTOprazole 40 MG TAB PO SCH (06:54)
[2019-05-24] MEDS: LEVOTHYROXINE SODIUM 50 MCG TABLET PO SCH (06:54)
[2019-05-24] MEDS: MIDODRINE HCL 2.5 MG TAB PO SCH (07:51)
[2019-05-24] MEDS: METOPROLOL SUCC 50MG EXT REL TAB PO SCH (07:51)
[2019-05-24] MEDS: predniSONE 20 MG TAB PO SCH (07:52)
[2019-05-24] MEDS: SENNA 8.6 MG TAB PO SCH (07:52)
[2019-05-24] MEDS: FUROSEMIDE 20 MG TAB PO SCH (07:52)
[2019-05-24] MEDS: APIXABAN 5 MG TABLET PO SCH (07:52)
[2019-05-24] MEDS: ESCITALOPRAM OXALATE 10 MG TAB PO SCH (07:52)
[2019-05-24] MEDS: DOCUSATE SODIUM 100 MG CAP PO SCH (07:57)
[2019-05-24 08:17] LABS: BUN Creatinine Ratio 19.2 (10-20); Calcium 9.2 mg/dl (8.5-10.1); Creatinine Clr Calc Pharmacy 39.4 ml/min; Est GFR (African American) 48.5; Est GFR (Non-African American) 41.9; Potassium 3.9 mmol/L (3.5-5.1)
--- NOTE | 2019-05-24 12:37 | Hospitalist Progress Note ---
Date of Service May 24, 2019 Assessment & Plan (1) Severe sepsis: Healthcare associated pneumonia Likely due to aspiration Severe Sepsis Mild COPD exacerbation Lactic acidosis CXR:There is a new right lower lobe airspace opacity. This likely represents a pneumonia. Stable cardiomegaly Negative Influenza, MRSA Blood/Urine Cx: No growth to date IV Vancomycin discontinued Continue IV Zosyn while hospitalized Continue Prednisone, Nebs Continue aspiration Precautions Speech/Swallow eval Pulmonary Hygiene Pulmonary status improved with chest PT Plan to transition to p.o. antibiotics upon discharge Metabolic encephalopathy--Resolved Likely secondary to above CT Head:No acute intracranial findings. Reorient frequently to minimize delirium monitor Chronic systolic heart failure Last ECHO: EF 30 to 35%, moderate global hypokinesis of the left ventricle, mild LVH, trace loculated posterior pericardial effusion No signs of volume overload Continue home Lasix Continue midodrine for chronic hypotension A-fib: On Eliquis for anticoagulation Continue Metoprolol Monitor Hypomagnesemia: Resolved monitor Hypothyroidism: Continue levothyroxine GERD: Continue PPI Depression: Continue Lexapro H/O Colon cancer H/O Dementia As per records DVT Px On Eliquis Code Status Conditional code No Intubation, CPR, defibrillation ok. Disposition: Discharge back to [facility] today Follows with Dr Campa for routine care Subjective Patient is seen and examined at bedside Eager to get discharged No new complaints Denies any chest pain,SOB, dizziness, nausea, abdominal pain Plan to discharge back to [facility] today No family at bedside Review of Systems Review of Systems: All systems reviewed & are unremarkable except as noted in HPI & below Physical Exam Physical Exam: Physical Exam: Vitals signs as noted above General Appearance:Moderately built and nourished, no apparent distress Head: normocephalic, Atraumatic Eyes: normal inspection, EOMI Neck: supple, Trachea midline Respiratory/Chest: Normal breath sounds, basal crackles Cardiovascular: Irregularly irregular, No murmur Abdomen/GI:Soft, Non tender, Bowel sounds present Extremities/Musculoskelatal:normal inspection, Trace edema Neurologic/Psych:grossly no focal neurological deficits Skin: normal color, warm Results & Data Vital Signs (Past 12 Hours) Vital Signs Temp Pulse Resp BP Pulse Ox 05/24/19 10:57 36.6 C 79 95/57 L 94 05/24/19 07:26 36.7 C 77 16 113/75 96 05/24/19 06:53 65 18 97 Laboratory Results [facility] 05/24/19 07:17 Sodium 137 Potassium 3.9 Chloride 102 Carbon Dioxide 29 BUN 23 H Creatinine 1.19 Glucose 76 Calcium 9.2
--- NOTE | 2019-05-24 12:47 | Discharge Summary ---
Date of Service May 24, 2019 Admission HPI Per Admitting Provider History obtained from EM provider and records. Unable to obtain history from patient secondary to dementia. Medical history significant for chronic systolic heart failure (EF 30 to 35%, TTE 2019), mitral regurgitation, A. fib on Eliquis, hypotension on midodrine, COPD as per records, colon cancer as per records, chronic anemia baseline hemoglobin of 8-9, dementia as per records, past tobacco abuse. Recent confinement 2 weeks ago for CHF and E. coli UTI. Patient noted to be more quiet than usual yesterday at custodial. Later found to be wheezing and tachypneic, O2 sats 94 on 3 L as per records. At the ER, patient received NSS, Zosyn for sepsis. Medical History as above Surgical History : Cholecystectomy, hysterectomy Family History : Could not be obtained Personal/Social history : Past tobacco abuse, no EtOH intake, custodial resident Admission Exam Per Admitting Provider GENERAL: Demented, nonverbal, minimal respiratory distress SKIN: Pallor , warm HEENT: Pale palpebral conjunctivae, no ptosis, dry buccal mucosa NECK : Supple, short neck, no tenderness CHEST : Rhonchi more in the right, bilateral expiratory wheezes , no tenderness HEART : RRR, systolic murmur ABDOMEN: Some distention, nontender EXTREMITIES : Minimal LE swelling, no LE tenderness, no other conspicuous deformities noted NEUROLOGIC : Demented, nonverbal, no facial asymmetry, no other gross focality Principal Diagnosis Healthcare associated pneumonia Severe sepsis Mild COPD exacerbation Discharge Data Allergies Allergy/AdvReac Type Severity Reaction Status Date / Time No Known Allergies Allergy Verified 05/20/19 03:58 Consultations 05/20/19 05:14 ED Decision to Admit Stat Procedures Performed CXR:There is a new right lower lobe airspace opacity. This likely represents a pneumonia. Stable cardiomegaly Head CT:No acute intracranial findings. Ordered Studies 05/20/19 05:53 CT head/brain wo con Urgent Hospital Course (1) Severe sepsis: Healthcare associated pneumonia Likely due to aspiration Severe Sepsis Mild COPD exacerbation Lactic acidosis CXR:There is a new right lower lobe airspace opacity. This likely represents a pneumonia. Stable cardiomegaly Negative Influenza, MRSA Blood/Urine Cx: No growth to date IV Vancomycin discontinued Continue IV Zosyn while hospitalized Continue Prednisone, Nebs Continue aspiration Precautions Speech/Swallow eval Pulmonary Hygiene Pulmonary status improved with chest PT Plan to transition to p.o. antibiotics upon discharge Metabolic encephalopathy--Resolved Likely secondary to above CT Head:No acute intracranial findings. Reorient frequently to minimize delirium monitor Chronic systolic heart failure Last ECHO: EF 30 to 35%, moderate global hypokinesis of the left ventricle, mild LVH, trace loculated posterior pericardial effusion No signs of volume overload Continue home Lasix Continue midodrine for chronic hypotension A-fib: On Eliquis for anticoagulation Continue Metoprolol Monitor Hypomagnesemia: Resolved monitor Hypothyroidism: Continue levothyroxine GERD: Continue PPI Depression: Continue Lexapro H/O Colon cancer H/O Dementia As per records DVT Px On Eliquis Code Status Conditional code No Intubation, CPR, defibrillation ok. Disposition: Discharge back to [facility] today Follows with Dr Campa for routine care Total Time Total Time Spent Total Time Spent (In Minutes): 41 minutes Total Time Includes: Examination of the Patient, Discharge Planning, Medication Reconciliation, Communication With Other Providers and Other Discharge Plan Discharge Items Patient Disposition: Transfer Longterm Fac Reason For Visit: HYPOTENSION Discharge Diagnosis: Healthcare associated pneumonia Severe sepsis Mild COPD exacerbation Activity: Resume your previous activity Exercise/Sports: Gradually increase as tolerated Non-emergency contact: Primary Care Provider Call non-emergency contact if: you have any medication questions, your symptoms worsen, your pain is not controlled, your pain is worsening, your pain is unusual for you, your pain is concerning for you and you have a fever Follow-up/Referrals: [facility] [Primary Care Provider] - Diet: Heart Healthy Diet Texture: Mechanical soft (ground) Diet Comment: Aspiration precautions at all times. Addtl Attending Provider Instructions: Follow-up with your primary care physician at [facility] in 1 week Complete the antibiotic course(Augmentin) for pneumonia Complete the prednisone taper course as prescribed Start taking prednisone 30 mg daily for 2 days, then 20 mg daily for 2 days then, 10 mg daily for 2 days and stop Your final blood cultures are pending at the time of discharge. Follow-up with your physician for results. Seek immediate medical attention if your symptoms reoccur or worsen Continue aspiration precautions as per speech pathologist recommendations Pending Studies at Discharge: Yes Studies:: Blood cultures Stand-Alone Forms: My [facility] Skilled Items Patient informed of condition?: Yes DNR: No Discharge Level of Care: Skilled Communicable Disease: No Discharge Prognosis: Improving Lines: None Urinary Catheter: No Medications and DC Order Prescriptions: New amoxicillin-pot clavulanate [Augmentin] 875-125 mg tablet 1 tab PO BID Qty: 7 RF: 0 prednisone 10 mg tablet 10 mg PO UD Qty: 12 RF: 0 Continued atorvastatin 10 mg tablet 10 mg PO HS RF: 0 alendronate 70 mg tablet 70 mg PO WK RF: 0 levothyroxine 50 mcg tablet 50 mcg PO DAILYBB RF: 0 omeprazole 20 mg capsule,delayed release(DR/EC) 20 mg PO DAILYBB RF: 0 escitalopram oxalate 10 mg tablet 10 mg PO QAM RF: 0 albuterol sulfate 2.5 mg /3 mL (0.083 %) Solution For Nebulization 2.5 mg INHALATION Q4 PRN (Reason: Shortness Of Breath Or Wheezing) RF: 0 bisacodyl [Dulcolax (bisacodyl)] 10 mg Suppository 10 mg WA DAILY PRN (Reason: Constipation) RF: 0 cyanocobalamin (vitamin B-12) 1,000 mcg/mL Solution 1,000 mcg IM MONTHLY RF: 0 docusate sodium [Colace] 100 mg Capsule 100 mg PO BID RF: 0 Calcium 600 + D(3) 600 mg calcium- 200 unit Capsule 1 cap PO BID RF: 0 cholecalciferol (vitamin D3) [Vitamin D3] 2,000 unit Tablet 2,000 unit PO QAM RF: 0 sennosides [senna] 8.6 mg Tablet 8.6 mg PO QAM RF: 0 acetaminophen [Tylenol] 325 mg Tablet 325 mg PO Q6H MDD 3 GRAMS/24 HOURS PRN (Reason: Fever Or Pain) RF: 0 furosemide [Lasix] 20 mg Tablet 20 mg PO QAM RF: 0 Eliquis 5 mg Tablet 5 mg PO BID RF: 0 midodrine 2.5 mg tablet 2.5 mg PO TID RF: 0 metoprolol succinate 50 mg tablet extended release 24 hr 50 mg PO DAILY Qty: 30 RF: 1 Breo Ellipta 100-25 mcg/dose blister with device 1 inh inhalation HS RF: 0 Discontinued cefuroxime axetil 250 mg Tablet 250 mg PO BID Qty: 8 RF: 0 Discharge Orders: Discharge Order (Routine); Ordered 05/24/19 Ordered By: Rodger Elkins Admission Data Admit Date/Time: 05/20/19 05:58 Attending Provider: Rodger Elkins Admit Provider: Broderick Almanzar Primary Care Provider: Katia Trevino Other Providers: Belinda, ; Broderick Almanzar Other Interventions: Discharge Summary Assessment (RN) Last Done: 05/24/19 12:35 DC Date/Time DO NOT enter until pt leaves facility: 05/24/19 13:02
== END 2019-05-24 13:02 | DRG 871 ==
LOC: ED 03:22 → 2S 05:58 → 2N 05-21 13:49